=== PATIENT | female | born 1955 | race Caucasian/White ===

== ENCOUNTER 2023-07-30 06:50 | Emergency (ER) | payer MEDICARE, OTHER, SELFPAY ==
[2023-07-30 06:53] VITALS: BP 108/56; PULSE 50; RESP 18; TEMP 36.8; O2SAT 95; BMI 27.4
--- NOTE | 2023-07-30 06:55 | XRR_ITS ---
PROCEDURE INFORMATION: Exam: XR Chest Exam date and time: 07/30/2023 7:09 AM Age: 68 years old Clinical indication: Pain; Chest pressure; Additional info: Chest pain TECHNIQUE: Imaging protocol: Radiologic exam of the chest. Views: 1 view. COMPARISON: No relevant prior studies available. FINDINGS: Lungs: Mild coarse reticular opacity in the left lung base. Right lung is clear. Pleural spaces: There is no pleural effusion or pneumothorax. Heart/Mediastinum: The cardiac silhouette is within normal limits of size given AP technique. Bones/joints: Bones are unremarkable. XR/XR chest 1V portable [id number] IMPRESSION: Coarse reticular opacity in the left lung base. Probable atelectasis. Infection not excluded.
--- NOTE | 2023-07-30 07:00 | ECG_ITS ---
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 Measurements Intervals [place] Rate: 48 P: 10 [place]: 188 QRS: 43 QRSD: 89 T: 30 QT: 463 QTc: 417 Interpretive Statements SINUS BRADYCARDIA NONSPECIFIC ST & T-WAVE ABNORMALITY No previous ECG available for comparison Electronically Signed On 07-30-2023 8:26:48 CDT by Pasquale Guerra M.D. [email or web address] [email or web address].aDealio/store/OM/[id number]
[2023-07-30 07:05] VITALS: BP 108/56; PULSE 48; RESP 18; O2SAT 95
[2023-07-30 07:12] LABS: Basophils # 0.1 10^3/uL (0.0-0.1); Basophils % 0.8 %; Eosinophils # 0.3 10^3/uL (0.0-0.8); Eosinophils % 2.1 %; Hematocrit 42.4 % (36-47); Lymphocytes # 1.7 10^3/uL (0.8-4.8); Lymphocytes % 14.1 %; Mean Corpuscular HGB Conc 32.8 g/dL (30-55); Mean Corpuscular Hemoglobin 31.1 pg (27-33); Mean Corpuscular Volume 94.9 fl (85-98); Mean Platelet Volume 10.4 fL (7.4-10.4); Monocytes # 0.8 10^3/uL (0.2-0.9); Monocytes % 6.8 %; Neutrophils % 75.9 %; Nucleated Red Blood Cells % 0 %; Platelet Count 235 10^3/cmm (157-399); Red Blood Count 4.47 10^6/uL (3.85-5.65); Red Cell Distribution Width 13.6 % (12.1-15.1); White Blood Count 12.12 10^3/uL (3.29-11.43)
[2023-07-30 07:20] VITALS: BP 79/48; PULSE 47; RESP 13; O2SAT 97
--- NOTE | 2023-07-30 07:21 | PC.NURSE ---
PT NITRO PASTE FROM EMS WAS REMOVED
[2023-07-30 07:23] LABS: INR 0.98 (0.8-1.2)
[2023-07-30 07:24] LABS: Alanine Aminotransferase < 5 U/L (0-33); Alkaline Phosphatase 66 U/L (35-105); Anion Gap 13.2 (5-19); Aspartate Amino Transferase 14 U/L (0-32); Blood Urea Nitrogen 18 mg/dL (8-23); Calcium 8.6 mg/dL (8.5-10.5); Carbon Dioxide 25 mmol/L (22-29); Chloride 102 mmol/L (98-107); Globulin 2.1 g/dL (1.3-4.6); Glomerular Filtration Rate 49.1 mL/min (90-130); Glucose 100 mg/dL (65-115); Osmolality Calculated 284 mOsm/kg (285-295); Potassium 4.2 mmol/L (3.5-5.1); Sodium 136 mmol/L (136-145); Total Bilirubin 0.5 mg/dL (0.15-1.2); Total Protein 6.1 g/dL (6.6-8.7)
[2023-07-30 07:25] LABS: Troponin(5th) Baseline 15 ng/L (0-10)
[2023-07-30 07:30] VITALS: BP 98/52; PULSE 48; RESP 19; O2SAT 98
--- NOTE | 2023-07-30 07:53 | PC.PHAR ---
pt brought in medication bottles except for aspirin 81mg-pt states she took no meds today-pt states she is unsure which medications she takes in the am and the pm-
--- NOTE | 2023-07-30 07:56 | ED_ITS ---
HPI - Chest Pain General: Chief Complaint: Chest Pain Stated Complaint: CP Time Seen by Provider: 07/30/23 06:55 History of Present Illness: Patient presents to the ER with complaints of sudden onset stabbing chest pain substernal since this morning. Patient said the pain started about 430 this morning. Patient did states she worked outside all day yesterday with a shovel. EMS gave the patient 324 mg aspirin, 4 mg Zofran, 100 mcg of fentanyl, 1 nitro sublingual and 1 inch Nitropaste on her chest. Patient was pain-free and sleeping upon arrival. Patient was placed on 2 L oxygen per nasal cannula as her sats dropped in the 80s for the ambulance after administration of medicine. Patient does not have a history of cardiac disease. Patient is Lipitor for her cholesterol. Review of Systems General: Reports: 10 or more systems reviewed and unremarkable except in HPI and below Physical Exam Const: COMMON NORMALS: no acute distress, average body habitus, patient oriented x3, no limitations, healthy appearing, alert and well nourished HENMT: COMMON NORMALS: normocephalic, hearing grossly normal bilaterally, external ears normal, EAC's normal and moist oral mucous membranes HEAD & SCALP: normocephalic EXTERNAL EAR: Yes external ears normal EXTERNAL AUDITORY CANAL: EAC's normal Eye: COMMON NORMALS: Equal, round and reactive pupils present, EOMs intact bilaterally, conjunctivae normal and no scleral icterus CONJUNCTIVA: Yes conjunctivae normal PUPIL: Yes Equal, round and reactive pupils present Neck/C-Spine: COMMON NORMALS: full ROM, no lymphadenopathy, supple, no meningeal signs, no JVD and Thyroid normal THYROID: Thyroid normal Chest: COMMONS NORMALS: normal inspection of the chest and normal palpation of entire chest wall Resp: COMMON NORMALS: normal respiratory effort, No retractions, No use of accessory muscles and clear to auscultation bilaterally AUSCULTATION: clear to auscultation bilaterally Cardio: COMMON NORMALS: no JVD, regular rate, regular rhythm, S1 normal heart sound present, S2 normal heart sound present, No gallops present (Cardio), No clicks present (Cardio), No murmurs present (Cardio) and No rub (Cardio) RATE: regular rate RHYTHM: regular rhythm HEART SOUNDS: S1 normal heart sound present and S2 normal heart sound present GI: COMMON NORMALS: Normal to inspection, nondistended, normoactive bowel so unds present, Soft to palpation, non-tender, No hepatosplenomegaly present and no masses PALPATION: Yes Soft to palpation and Yes No hepatosplenomegaly present : COMMON NORMALS: Yes no CVA tenderness BLADDER/KIDNEY EXAM: Yes no CVA tenderness Back/Pelvis: COMMON NORMALS: no CVA tenderness Neuro: COMMON NORMALS: patient oriented x3 SENSORIUM/ORIENTATION: Yes alert MENINGEAL SIGNS: Yes no meningeal signs Course Vital Signs: Vital signs: Vital Signs Temperature 98.2 F 07/30/23 06:53 Pulse Rate 52 L 07/30/23 09:26 Respiratory Rate 18 07/30/23 09:26 Blood Pressure 105/59 07/30/23 09:26 Pulse Oximetry 96 07/30/23 09:26 Oxygen Delivery Me thod Room Air 07/30/23 09:26 Oxygen Flow Rate 2 07/30/23 07:20 MDM - Chest Pain Medical Decision Making Patient presents to the ER with complaints of chest pain. EMS gave the patient aspirin nitro and Nitropaste and Zofran. Patient was pain-free upon arrival. Patient was worked up in the standard chest pain fashion with serial labs serial EKGs and chest x-ray. Serial troponins were 15 and a 2-hour troponin was 13 for troponin delta of roughly 2. Is thought that the patient's chest pain was noncardiac in nature and patient be discharged home. Medical Records I reviewed the patient's medical records. Lab Data I reviewed the patient's lab results. 07/30/23 06:55 07/30/23 06:55 Radiology Impressions Chest X-Ray 07/30/23 06:55 IMPRESSION: Coarse reticular opacity in the left lung base. Probable atelectasis. Infection not excluded. Laboratory Results WBC 12.12 10^3/uL (3.29-11.43) H 07/30/23 06:55 RBC 4.47 10^6/uL (3.85-5.65) 07/30/23 06:55 Hgb 13.90 g/dL (11.27-16.99) 07/30/23 06:55 Hct 42.4 % (36-47) 07/30/23 06:55 MCV 94.9 fl (85-98) 07/30/23 06:55 MCH 31.1 pg (27-33) 07/30/23 06:55 MCHC 32.8 g/dL (30-55) 07/30/23 06:55 RDW 13.6 % (12.1-15.1) 07/30/23 06:55 Plt Count 235 10^3/cmm (157-399) 07/30/23 06:55 MPV 10.4 fL (7.4-10.4) 07/30/23 06:55 Neut % (Auto) 75.9 % 07/30/23 06:55 Lymph % (Auto) 14.1 % 07/30/23 06:55 [place] % (Auto) 6.8 % 07/30/23 06:55 Eos % (Auto) 2.1 % 07/30/23 06:55 Baso % (Auto) 0.8 % 07/30/23 06:55 Neut # (Auto) 9.20 10^3/uL (1.8-7.7) H 07/30/23 06:55 Lymph # (Auto) 1.7 10^3/uL (0.8-4.8) 07/30/23 06:55 [place] # (Auto) 0.8 10^3/uL (0.2-0.9) 07/30/23 06:55 Eos # (Auto) 0.3 10^3/uL (0.0-0.8) 07/30/23 06:55 Baso # (Auto) 0.1 10^3/uL (0.0-0.1) 07/30/23 06:55 Nucleated RBC % (auto) 0 % 07/30/23 06:55 Nucleated RBCs # 0.0 /100WBC 07/30/23 06:55 PT 13.30 SECONDS (12.1-14.9) 07/30/23 06:55 INR 0.98 (0.8-1.2) 07/30/23 06:55 Sodium 136 mmol/L (136-145) 07/30/23 06:55 Potassium 4.2 mmol/L (3.5-5.1) 07/30/23 06:55 Chloride 102 mmol/L (98-107) 07/30/23 06:55 Carbon Dioxide 25 mmol/L (22-29) 07/30/23 06:55 Anion Gap 13.2 (5-19) 07/30/23 06:55 BUN 18 mg/dL (8-23) 07/30/23 06:55 Creatinine 1.1 mg/dL (0.5-0.9) H 07/30/23 06:55 GFR Calculation 49.1 mL/min (90-130) L 07/30/23 06:55 Glucose 100 mg/dL (65-115) 07/30/23 06:55 Calculated Osmolality 284 mOsm/kg (285-295) L 07/30/23 06:55 Calcium 8.6 mg/dL (8.5-10.5) 07/30/23 06:55 Total Bilirubin 0.5 mg/dL (0.15-1.2) 07/30/23 06:55 AST 14 U/L (0-32) 07/30/23 06:55 ALT < 5 U/L (0-33) 07/30/23 06:55 Alkaline Phosphatase 66 U/L (35-105) 07/30/23 06:55 Troponin T Baseline 15 ng/L (0-10) H 07/30/23 06:55 Troponin T 120 Minute 13.53 ng/L (0-10) H 07/30/23 08:56 Delta Troponin T -1.47 ABS# (0-10) L 07/30/23 08:56 Total Protein 6.1 g/dL (6.6-8.7) L 07/30/23 06:55 Albumin 4.0 g/dL (3.5-5.2) 07/30/23 06:55 Globulin 2.1 g/dL (1.3-4.6) 07/30/23 06:55 All radiology interpretation(s) finalized by discharge EKG Data EKG 1: I personally reviewed and interpreted this EKG as follows: EKG interpretation date: 07/30/23 EKG interpretation time: 07:00 Prior EKG tracings: not available for review Interpretation: EKG shows ventricular rate 48 bpm, [place] interval 188, QRS duration 89, QTc of 431, sinus bradycardia, nonspecific ST-T wave abnormality EKG 2: I personally reviewed and interpreted this EKG as follows: EKG interpretation date: 07/30/23 EKG interpretation time: 08:25 Prior EKG tracings: available for review Interpretation: EKG shows ventricular rate of 50 bpm, [place] interval 190, QRS duration 91, QTc 426, sinus bradycardia Discharge Plan Discharge Patient Disposition: Home Clinical Impression: Atypical chest pain Condition: Stable Prescriptions: No Action atorvastatin 10 mg tablet 10 mg PO DAILY metoprolol succinate 100 mg tablet extended release 24 hr 100 mg PO DAILY sertraline 100 mg tablet 100 mg PO DAILY Aspir-81 81 mg Tablet,Delayed Release (Dr/Ec) 81 mg PO DAILY tramadol 50 mg tablet 50 mg PO Q6H PRN (Reason: Pain) ghnegfqubh-ivqopcyxqnldt-lxxo 50-325-40 mg Tablet 1 tab PO Q4H PRN (Reason: Headache) alprazolam 0.5 mg tablet 0.5 mg PO .UP TO TID PRN (Reason: Anxiety) Premarin 0.625 mg tablet 0.625 mg PO DAILY Prilosec 20 mg Capsule,Delayed Release(Dr/Ec) 20 mg PO DAILY melatonin 10 mg Tablet 10 mg PO BEDTIME Discharge Orders: Discharge ED (Routine); Ordered 07/30/23 Ordered By: Kemar Lares Referrals: Arturo Rosa [Primary Care Provider] - 1 week Patient Instructions: Chest Pain - Noncardiac Activity Restrictions/Additional Instructions: Please return to the ER if your chest pain continues or worsens. Please follow- up with your family practice physician over the next 7 to 10 days as needed for further evaluation and treatment. Coding Level of Care Code ED Assistant Shift Supervisor for [place]
--- NOTE | 2023-07-30 08:25 | ECG_ITS ---
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 Measurements Intervals [place] Rate: 50 P: 24 [place]: 190 QRS: 63 QRSD: 91 T: 41 QT: 453 QTc: 414 Interpretive Statements SINUS BRADYCARDIA POSSIBLE LATERAL MYOCARDIAL INFARCTION , PROBABLY OLD [30 ms Q WAVE IN I/aVL/V5/V6] Compared to ECG 07/30/2023 07:00:15 Myocardial infarct finding now present T-wave abnormality no longer present Electronically Signed On 07-30-2023 10:04:02 CDT by Vickie Rogers M.D. [email or web address]/store/OM/[id number]
[2023-07-30 08:48] VITALS: BP 112/58; PULSE 51; RESP 18; O2SAT 95
[2023-07-30 09:25] LABS: Troponin 5 2HR 13.53 ng/L (0-10)
[2023-07-30 09:26] VITALS: BP 105/59; PULSE 52; RESP 18; O2SAT 96
[2023-07-30 09:27] LABS: Troponin 5 2HR Delta -1.47 ABS# (0-10)
== END 2023-07-30 10:01 | disposition home or self-care (01) ==
PROVIDERS: Emergency Provider Emergency Medicine; PCP Family Medicine
DX: R07.89 Other chest pain (principal); Z79.82 Long term (current) use of aspirin
CPT/HCPCS: 36415; 71045; 80053; 84484; 85025; 85610; 93005; 99285

== ENCOUNTER 2024-05-25 23:53 | Inpatient (IN) | payer MEDICARE, OTHER, SELFPAY ==
[2024-05-25 23:53] VITALS: BP 126/78; PULSE 73; RESP 18; TEMP 35.7; O2SAT 84; BMI 27.9
--- NOTE | 2024-05-25 23:59 | ECG_ITS ---
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 Measurements Intervals [place] Rate: 73 P: 51 [place]: 202 QRS: 20 QRSD: 94 T: 45 QT: 423 QTc: 469 Interpretive Statements SINUS RHYTHM POSSIBLE LEFT ATRIAL ENLARGEMENT [-0.1mV P-WAVE IN V1/V2] LOW QRS VOLTAGE IN PRECORDIAL LEADS [QRS DEFLECTION < 1.0 mV IN CHEST LEADS] PROBABLE ANTEROLATERAL MYOCARDIAL INFARCTION , OF INDETERMINATE AGE [35 ms Q WAVE IN I/aVL/V3-V6] Compared to ECG 07/30/2023 08:25:39 Low QRS voltage now present Sinus bradycardia no longer present Myocardial infarct finding still present Electronically Signed On 05-26-2024 17:17:57 CDT by Pasquale Guerra M.D. [id number]
[2024-05-26] VITALS (76 sets, daily range): BP systolic 131–163; BP diastolic 80–120; PULSE 63–84; RESP 11–26; TEMP -12.7–36.6; O2SAT 90–100; BMI 28.4
--- NOTE | 2024-05-26 00:04 | XRR_ITS ---
PROCEDURE INFORMATION: Exam: XR Chest Exam date and time: 05/26/2024 12:19 AM Age: 69 years old Clinical indication: Dyspnea TECHNIQUE: Imaging protocol: Radiologic exam of the chest. Views: 1 view. COMPARISON: CR XR chest 1V portable [id number] 07/30/2023 7:09 AM FINDINGS: Lungs: The lungs are adequately expanded. Bibasilar hazy opacities concerning for pulmonary edema, atelectasis, or consolidation. Emphysema. Pleural spaces: Unremarkable. No pleural effusion. No pneumothorax. Heart/Mediastinum: Unremarkable. No cardiomegaly. Vasculature: Atherosclerotic calcifications. Bones/joints: Unremarkable. XR/XR chest 1V portable [id number] IMPRESSION: Bibasilar hazy opacities concerning for pulmonary edema, atelectasis, or consolidation.
--- NOTE | 2024-05-26 00:04 | ECG_ITS ---
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 Measurements Intervals [place] Rate: 68 P: 55 [place]: 206 QRS: 28 QRSD: 97 T: 66 QT: 451 QTc: 481 Interpretive Statements SINUS RHYTHM POSSIBLE LEFT ATRIAL ENLARGEMENT [-0.1mV P-WAVE IN V1/V2] LATERAL MYOCARDIAL INFARCTION , PROBABLY RECENT [40+ ms Q WAVE AND/OR ST/T ABNORMALITY IN I/aVL/V5/V6] ACUTE SD Compared to ECG 05/26/2024 02:34:28 No significant changes Electronically Signed On 05-26-2024 6:29:05 CDT by Leandro Connell M.D. [id number] f
--- NOTE | 2024-05-26 00:13 | W.ED.SOB ---
HPI - SOB/Dyspnea General: Chief Complaint: Shortness of Breath/Dyspnea Stated Complaint: SOB Time Seen by Provider: 05/26/24 00:11 History of Present Illness: HPI Narrative: Patient comes to the ER via EMS with complaints of shortness of breath. This was sudden onset about 11:00 last night. Patient normally does not have any COPD asthma CHF breathing problems. Patient was very short of breath by time EMS got there satting about 80%. Patient is on 6 L of oxygen satting about 85% upon arrival. Patient was put on 10 L of heated high flow oxygen and satting about 99% now. Patient temperature 96.3 pulse 73 blood pressure 126/78, Patient denies chest pain shortness of breath diaphoresis nausea vomiting fever chills sick contacts Review of Systems General: Reports: 10 or more systems reviewed and unremarkable except in HPI and below Physical Exam Const: COMMON NORMALS: no acute distress, average body habitus, patient oriented x3, no limitations, healthy appearing, alert and well nourished HENMT: COMMON NORMALS: normocephalic, atraumatic, hearing grossly normal bilaterally, external ears normal, Normal external nose present and moist oral mucous membranes HEAD & SCALP: normocephalic and atraumatic NOSE: Normal external nose present EXTERNAL EAR: Yes external ears normal Neck/C-Spine: COMMON NORMALS: no JVD Chest: COMMONS NORMALS: normal inspection of the chest and normal palpation of entire chest wall Resp: COMMON NORMALS: normal respiratory effort, No retractions, No use of accessory muscles and clear to auscultation bilaterally AUSCULTATION: clear to auscultation bilaterally Cardio: COMMON NORMALS: no JVD, regular rate, regular rhythm, S1 normal heart sound present, S2 normal heart sound present, No gallops present (Cardio), No clicks present (Cardio), No murmurs present (Cardio), No rub (Cardio) and Peripheral pulses 2+ throughout RATE: regular rate RHYTHM: regular rhythm HEART SOUNDS: S1 normal heart sound present and S2 normal heart sound present PERIPHERAL PULSES: Peripheral pulses 2+ throughout GI: COMMON NORMALS: Normal to inspection, nondistended, normoactive bowel sounds present, Soft to palpation, non-tender, No hepatosplenomegaly present and no masses PALPATION: Yes Soft to palpation and Yes No hepatosplenomegaly present Neuro: COMMON NORMALS: patient oriented x3 SENSORIUM/ORIENTATION: Yes alert Course Vital Signs: Vital signs: Vital Signs Temperature 96.3 F L 05/25/24 23:53 Pulse Rate 67 05/26/24 02:48 Respiratory Rate 20 H 05/26/24 03:26 Blood Pressure 143/85 05/26/24 02:48 Pulse Oximetry 99 05/26/24 03:26 Oxygen Delivery Me thod Heated High Flow 05/26/24 02:48 Oxygen Flow Rate 10 05/26/24 02:48 MDM - SOB/Dyspnea Medical Decision Making Time 234, EKG performed at 234 and [address] Orlando, Dr. Orlando said when trend troponins not an obvious STEMI and with delta troponin only being approximately 44 and no chest pain not too concerning at this time more concerned with the PE and hypoxia, continue CTA and can put on heparin . Dr. Orlando text back wanted some labs we texted him he is worried about flash pulmonary edema, we will give the patient 40 Lasix, and patient started having back pain and left shoulder pain, we got a third EKG at 305 which shows mildly worsening depression and elevation in various leads patient was given 4 mg of morphine and this was tacked back to Dr. Orlando. Still does not meet STEMI criteria we can heparinize her and follow serial troponins. Discussed case with Dr. Mccormick we will place patient in ICU for further workup and treatment. Medical Records I reviewed the patient's medical records. Lab Data I reviewed the patient's lab results. 05/26/24 00:08 05/26/24 00:08 Labs/Radiology: Radiology Impressions Chest X-Ray 05/26/24 00:04 IMPRESSION: Bibasilar hazy opacities concerning for pulmonary edema, atelectasis, or consolidation. Chest CTA 05/26/24 00:36 IMPRESSION: 1. Negative for pulmonary artery embolism. 2. Interstitial edema. 3. Scattered ground-glass airspace opacities could reflect pulmonary edema, nonspecific inflammatory pneumonitis, or atypical infection. Laboratory Results WBC 9.39 10^3/uL (3.29-11.43) 05/26/24 00:08 RBC 4.82 10^6/uL (3.85-5.65) 05/26/24 00:08 Hgb 14.80 g/dL (11.27-16.99) 05/26/24 00:08 Hct 45.7 % (36-47) 05/26/24 00:08 MCV 94.8 fl (85-98) 05/26/24 00:08 MCH 30.7 pg (27-33) 05/26/24 00:08 MCHC 32.4 g/dL (30-55) 05/26/24 00:08 RDW 14.0 % (12.1-15.1) 05/26/24 00:08 Plt Count 230 10^3/cmm (157-399) 05/26/24 00:08 MPV 10.8 fL (7.4-10.4) H 05/26/24 00:08 Neut % (Auto) 70.4 % 05/26/24 00:08 Lymph % (Auto) 23.3 % 05/26/24 00:08 [place] % (Auto) 3.7 % 05/26/24 00:08 Eos % (Auto) 1.4 % 05/26/24 00:08 Baso % (Auto) 0.9 % 05/26/24 00:08 Neut # (Auto) 6.61 10^3/uL (1.8-7.7) 05/26/24 00:08 Lymph # (Auto) 2.2 10^3/uL (0.8-4.8) 05/26/24 00:08 [place] # (Auto) 0.4 10^3/uL (0.2-0.9) 05/26/24 00:08 Eos # (Auto) 0.1 10^3/uL (0.0-0.8) 05/26/24 00:08 Baso # (Auto) 0.1 10^3/uL (0.0-0.1) 05/26/24 00:08 Nucleated RBC % (auto) 0 % 05/26/24 00:08 Nucleated RBCs # 0.0 /100WBC 05/26/24 00:08 D-Dimer 2.93 ug/mLFEU (0-0.59) H 05/26/24 00:08 Specimen Type Arterial 05/26/24 00:20 Sample Site Radial, right 05/26/24 00:20 ABG pH 7.35 (7.35-7.45) 05/26/24 00:20 ABG pCO2 42.9 mmHg (35-45) 05/26/24 00:20 ABG pO2 53.4 mmHg (80.0-100.0) L 05/26/24 00:20 ABG HCO3 23.7 mmol/L (22-26) 05/26/24 00:20 ABG O2 Saturation 87.4 05/26/24 00:20 ABG Base Excess -2.0 mmol/L (-2.0-2.0) 05/26/24 00:20 Frank Test Pos 05/26/24 00:20 A-a O2 Gradient 5.7 mmHg (5-10) 05/26/24 00:20 Hematocrit 46.4 % (37-47) 05/26/24 00:20 Hgb O2 Saturation 83.8 % (95-100) L 05/26/24 00:20 Carboxyhemoglobin 3.9 %THgb (0.4-20.1) 05/26/24 00:20 Methemoglobin 0.2 % (0.4-1.5) L 05/26/24 00:20 Total Hemoglobin 15.1 g/dL (12-16) 05/26/24 00:20 Sodium 138.0 mmol/L (131-143) 05/26/24 00:20 Potassium 3.6 mmol/L (3.5-5.0) 05/26/24 00:20 Glucose 171.0 mg/dL (70-115) H 05/26/24 00:20 Ionized Calcium 1.2 mmol/L (1.1-1.4) 05/26/24 00:20 O2 Delivery Device Nc 05/26/24 00:20 O2 Liters/Min 6.0 % 05/26/24 00:20 Hotbed Transfer Operator ID [email or web address] 05/26/24 00:20 Sodium 137 mmol/L (136-145) 05/26/24 00:08 Potassium 4.1 mmol/L (3.5-5.1) 05/26/24 00:08 Chloride 101 mmol/L (98-107) 05/26/24 00:08 Carbon Dioxide 21 mmol/L (22-29) L 05/26/24 00:08 Anion Gap 19.1 (5-19) H 05/26/24 00:08 BUN 20 mg/dL (8-23) 05/26/24 00:08 Creatinine 1.2 mg/dL (0.5-0.9) H 05/26/24 00:08 GFR Calculation Not Reportable 05/26/24 00:08 Glucose 179 mg/dL (65-115) H 05/26/24 00:08 Calculated Osmolality 291 mOsm/kg (285-295) 05/26/24 00:08 Calcium 9.1 mg/dL (8.5-10.5) 05/26/24 00:08 Phosphorus 4.5 mg/dL (2.5-4.5) 05/26/24 00:08 Magnesium 2.1 mg/dL (1.7-2.3) 05/26/24 00:08 Total Bilirubin 0.7 mg/dL (0.15-1.2) 05/26/24 00:08 AST 24 U/L (0-32) 05/26/24 00:08 ALT 13 U/L (0-33) 05/26/24 00:08 Alkaline Phosphatase 83 U/L (35-105) 05/26/24 00:08 Troponin T Baseline 28 ng/L (0-10) H 05/26/24 00:08 Troponin T 120 Minute 72.86 ng/L (0-10) H 05/26/24 02:05 Delta Troponin T 44.86 ABS# (0-10) H* 05/26/24 02:05 NT-Pro-B Natriuret Pep 7883 pg/mL (0-125) H 05/26/24 01:50 Total Protein 6.9 g/dL (6.6-8.7) 05/26/24 00:08 Albumin 4.0 g/dL (3.5-5.2) 05/26/24 00:08 Globulin 2.9 g/dL (1.3-4.6) 05/26/24 00:08 Adenovirus (PCR) Not detected (NOT DETECT) 05/26/24 00:12 C. pneumoniae DNA (PCR) Not detected (NOT DETECT) 05/26/24 00:12 Coronavirus 229E (PCR) Not detected (NOT DETECT) 05/26/24 00:12 Human Metapneumovir PCR Not detected (NOT DETECT) 05/26/24 00:12 Influenza A (H1) PCR Not detected (NOT DETECT) 05/26/24 00:12 Influ A (H1/09) PCR Not detected (NOT DETECT) 05/26/24 00:12 Influenza A (H3) PCR Not detected (NOT DETECT) 05/26/24 00:12 Influenza Type A (PCR) Not detected (NOT DETECT) 05/26/24 00:12 Influenza Type B (PCR) Not detected (NOT DETECT) 05/26/24 00:12 M. pneumoniae (PCR) Not detected (NOT DETECT) 05/26/24 00:12 Parainfluenza 1 (PCR) Not detected (NOT DETECT) 05/26/24 00:12 Parainfluenza 2 (PCR) Not detected (NOT DETECT) 05/26/24 00:12 Parainfluenza 3 (PCR) Not detected (NOT DETECT) 05/26/24 00:12 Parainfluenza 4 (PCR) Not detected (NOT DETECT) 05/26/24 00:12 RSV Type A (PCR) Not detected (NOT DETECT) 05/26/24 00:12 RSV Type B (PCR) Not detected (NOT DETECT) 05/26/24 00:12 Entero/Rhino (PCR) Not detected (NOT DETECT) 05/26/24 00:12 SARS-CoV-2 (PCR) Not detected (NOT DETECT) 05/26/24 00:12 All radiology interpretation(s) finalized by discharge Critical Care Time Critical Care Time: Critical Care Time: Yes Total Critical Care Time: 60 Attestation: The patient was emergently evaluated this patient's presentation and case had a high probability of a clinically significant, sudden, or life-threatening deterioration of the patient's initial critical presentation or condition which required my full and direct attention, intervention and personal management. Discharge Plan Discharge Patient Disposition: Admitted As Inpatient Clinical Impression: Pulmonary edema, Acute hypoxic respiratory failure, Non-ST elevated myocardial infarction (non-STEMI) Condition: Stable Coding Level of Care Code ED Change Management Administrator for [place]
[2024-05-26 00:17] LABS: Basophils # 0.1 10^3/uL (0.0-0.1); Basophils % 0.9 %; Eosinophils # 0.1 10^3/uL (0.0-0.8); Eosinophils % 1.4 %; Hematocrit 45.7 % (36-47); Lymphocytes # 2.2 10^3/uL (0.8-4.8); Lymphocytes % 23.3 %; Mean Corpuscular HGB Conc 32.4 g/dL (30-55); Mean Corpuscular Hemoglobin 30.7 pg (27-33); Mean Corpuscular Volume 94.8 fl (85-98); Mean Platelet Volume 10.8 fL (7.4-10.4); Monocytes # 0.4 10^3/uL (0.2-0.9); Monocytes % 3.7 %; Neutrophils # 6.61 10^3/uL (1.8-7.7); Neutrophils % 70.4 %; Nucleated Red Blood Cells % 0 %; Platelet Count 230 10^3/cmm (157-399); Red Blood Count 4.82 10^6/uL (3.85-5.65); White Blood Count 9.39 10^3/uL (3.29-11.43)
[2024-05-26 00:30] LABS: D Dimer 2.93 ug/mLFEU (0-0.59)
[2024-05-26 00:31] LABS: ABG PCO2 42.9 mmHg (35-45); ABG PH Result 7.35 (7.35-7.45); Alveolar-Arterial Oxygen Gradi 5.7 mmHg (5-10); Arterial Blood Gas Hematocrit 46.4 % (37-47); Blood Gas Allen Test Pos; Blood Gas Sample Site Radial, right; Blood Gas Sample Type Arterial; Carboxyhemoglobin 3.9 %THgb (0.4-20.1); HCO3 ABG 23.7 mmol/L (22-26); HGB O2 Sat 83.8 % (95-100); Ionized Calcium Level - ABG 1.2 mmol/L (1.1-1.4); Methemoglobin 0.2 % (0.4-1.5); Oxygen Device NC; Oxygen Saturation ABG 87.4; PO2 ABG 53.4 mmHg (80.0-100.0); Potassium Level - ABG 3.6 mmol/L (3.5-5.0); Total Hemoglobin 15.1 g/dL (12-16)
[2024-05-26 00:35] LABS: Troponin(5th) Baseline 28 ng/L (0-10)
--- NOTE | 2024-05-26 00:36 | CTR_ITS ---
PROCEDURE INFORMATION: Exam: CTA Chest With Contrast Exam date and time: 05/26/2024 1:04 AM Age: 69 years old Clinical indication: Dyspnea TECHNIQUE: Imaging protocol: Computed tomographic angiography of the chest with contrast. Exam focused on the arteries. 3D rendering (Not supervised by radiologist): MIP and/or 3D reconstructed images were created by the technologist. Radiation optimization: All CT scans at this facility use at least one of these dose optimization techniques: automated exposure control; mA and/or kV adjustment per patient size (includes targeted exams where dose is matched to clinical indication); or iterative reconstruction. Contrast material: OMNIPAQUE 350; Contrast volume: 71 ml; Contrast route: INTRAVENOUS (IV); COMPARISON: CR (CHEST, ) 05/26/2024 12:19 AM RADIATION DOSE METRICS: Total DLP (mGy-cm): 370.64 FINDINGS: Pulmonary arteries: Normal. No pulmonary emboli. Aorta: Widespread wall plaques throughout the thoracic aorta. Negative for aneurysm. Lungs: Diffuse septal thickening. Scattered small geographic areas of ground-glass attenuation peripherally in both lungs. Mosaic attenuation pattern. Increased opacities in the dependent airspaces within the lower lobes. Negative for central endobronchial obstruction. Mild degree of smooth diffuse bronchial wall thickening. Negative for bronchiectasis. Neg for peripheral honeycombing. Pleural spaces: Unremarkable. No pneumothorax. No pleural effusion. Heart: Unremarkable. No cardiomegaly. No pericardial effusion. Coronary arteries: Large volume coronary artery calcifications. Lymph nodes: Unremarkable. No enlarged lymph nodes. Diaphragm: Small hiatal hernia. Gallbladder and biliary ducts: Cholecystectomy. Bones/joints: Unremarkable. No acute fracture. Soft tissues: Unremarkable. CT/CT angio chest PE protcl [id number] IMPRESSION: 1. Negative for pulmonary artery embolism. 2. Interstitial edema. 3. Scattered ground-glass airspace opacities could reflect pulmonary edema, nonspecific inflammatory pneumonitis, or atypical infection.
[2024-05-26 00:38] LABS: Alanine Aminotransferase 13 U/L (0-33); Alkaline Phosphatase 83 U/L (35-105); Aspartate Amino Transferase 24 U/L (0-32); Blood Urea Nitrogen 20 mg/dL (8-23); Calcium 9.1 mg/dL (8.5-10.5); Carbon Dioxide 21 mmol/L (22-29); Chloride 101 mmol/L (98-107); Creatinine Clr Calc Pharmacy 43.9071; Globulin 2.9 g/dL (1.3-4.6); Glucose 179 mg/dL (65-115); Magnesium 2.1 mg/dL (1.7-2.3); Osmolality Calculated 291 mOsm/kg (285-295); Phosphorus 4.5 mg/dL (2.5-4.5); Sodium 137 mmol/L (136-145); Total Bilirubin 0.7 mg/dL (0.15-1.2); Total Protein 6.9 g/dL (6.6-8.7)
[2024-05-26 00:44] LABS: Anion Gap 19.1 (5-19); Potassium 4.1 mmol/L (3.5-5.1)
[2024-05-26] MEDS: iohexol 350 mg/mL 500 mL Btl (per mL) IV (01:15)
[2024-05-26 02:02] LABS: Adenovirus Not Detected (NOT DETECT); Chlamydia Pneumoniae Not Detected (NOT DETECT); Coronavirus 229E,HKU1,NL63,OC4 Not Detected (NOT DETECT); Human Metapneumovirus Not Detected (NOT DETECT); Human Rhinovirus/Enterovirus Not Detected (NOT DETECT); Influenza A Not Detected (NOT DETECT); Influenza A H1 Not Detected (NOT DETECT); Influenza A H1-2009 Not Detected (NOT DETECT); Influenza A H3 Not Detected (NOT DETECT); Influenza B Not Detected (NOT DETECT); Mycoplasma Pneumoniae Not Detected (NOT DETECT); Parainfluenza Virus Type 1 Not Detected (NOT DETECT); Parainfluenza Virus Type 2 Not Detected (NOT DETECT); Parainfluenza Virus Type 3 Not Detected (NOT DETECT); Parainfluenza Virus Type 4 Not Detected (NOT DETECT); Respiratory Syncytial Virus A Not Detected (NOT DETECT); Respiratory Syncytial Virus B Not Detected (NOT DETECT); SARS-COV-2 Not Detected (NOT DETECT)
[2024-05-26 02:29] LABS: Troponin 5 2HR 72.86 ng/L (0-10)
--- NOTE | 2024-05-26 02:34 | ECG_ITS ---
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 Measurements Intervals [place] Rate: 66 P: 49 WV: 195 QRS: 31 QRSD: 101 T: 67 QT: 460 QTc: 485 Interpretive Statements SINUS RHYTHM LOW QRS VOLTAGE IN PRECORDIAL LEADS [QRS DEFLECTION < 1.0 mV IN CHEST LEADS] SEPTAL MYOCARDIAL INFARCTION , OF INDETERMINATE AGE [40+ ms Q WAVE IN V1/V2] LATERAL MYOCARDIAL INFARCTION , PROBABLY RECENT [40+ ms Q WAVE AND/OR ST/T ABNORMALITY IN I/aVL/V5/V6] ACUTE SC Compared to ECG 07/30/2023 08:25:39 Low QRS voltage now present Sinus bradycardia no longer present Myocardial infarct finding still present Electronically Signed On 05-26-2024 6:38:41 CDT by Leandro Connell M.D. [email or web address] ([email or web address])[email or web address]/[id number]
[2024-05-26 02:38] LABS: Troponin 5 2HR Delta 44.86 ABS# (0-10)
[2024-05-26 02:40] LABS: NT Pro B Type Natriuretic Pept 7883 pg/mL (0-125)
--- NOTE | 2024-05-26 03:05 | ECG_ITS ---
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 Measurements Intervals [place] Rate: 68 P: 47 CA: 207 QRS: 32 QRSD: 96 T: 69 QT: 453 QTc: 484 Interpretive Statements SINUS RHYTHM POSSIBLE LEFT ATRIAL ENLARGEMENT [-0.1mV P-WAVE IN V1/V2] LATERAL MYOCARDIAL INFARCTION , PROBABLY RECENT [40+ ms Q WAVE AND/OR ST/T ABNORMALITY IN I/aVL/V5/V6] Possible old septal WI ACUTE WI Compared to ECG 05/26/2024 02:41:27 No significant changes Electronically Signed On 05-26-2024 6:38:58 CDT by Leandro Connell M.D. [email or web address] Technologiestr[email or web address] medical centerKeelr/store/[id number] f
[2024-05-26] MEDS: aspirin 81 mg Chew Tablet 324 MG PO (03:23)
[2024-05-26] MEDS: heparin 5,000 unit/mL INJ 1 mL IV (03:25)
[2024-05-26] MEDS: morphine 4 mg/mL SDV 1 mL IVP (03:26)
[2024-05-26] MEDS: FUROsemide 10 mg/mL SDV 4mL 40 MG IVP (03:28)
[2024-05-26] MEDS: heparin drip 25,000 UNIT/500 ML PREMIX 21.34 UNIT IV (03:31)
--- NOTE | 2024-05-26 03:42 | P.HP_ITS ---
Providers/Chief Complaint 2 Primary Care Provider: Arturo Rosa Chief Complaint: SOB History of Present Illness Layen Robledo is a 69 year old female With past medical history of anxiety, depression who presented to the hospital with sudden onset shortness of breath today. She says she was playing with her dog at the time. She tried to wait around 40 to 45 minutes to see if it would get better but it did not therefore she called her son. When family came they found her on the floor completely naked with her toes being blue and her saturations being in the 70s. EMS was called immediately. He was given 3 DuoNebs and route and 125 Solu-Medrol and placed on oxygen and brought to the ER. Initially in ER she was requiring 6 L of oxygen and now on 10 L heated high flow, temperature 96.3. Denies any recent ill contacts or recent travel. D-dimer 2.93. CTA chest has ruled out pulmonary embolism.. Initial ABG 7.35/42.9/53.4. Creatinine 1.2. Delta troponin 2 hours 44.86. Initial EKG without any acute ischemic changes. Chest x-ray shows by lateral opacities with possible pneumonia versus pulmonary edema. Blood cultures obtained in ER. Patient denies being formally diagnosed with COPD however is an active smoker. Reports shoulder blade pain on left side. Says this pretty much started in the ambulance. Says she has varicose veins in her legs are sometimes swollen however at this time they are not. Patient is on 8 L high flow nasal cannula at this time. Medications/Allergies Home Medications Medication Instructions Recorded Confirmed Last Taken Type alprazolam 0.5 mg tablet 0.5 mg PO .UP TO TID PRN Anxiety 07/30/23 12/31/23 Unknown History aspirin 81 mg tablet,delayed 81 mg PO DAILY 07/30/23 12/31/23 Unknown History release atorvastatin 10 mg tablet 10 mg PO DAILY 07/30/23 12/31/23 Unknown History hltaaylopf-tycedfxododzt-gxwmtfjv 1 tab PO Q4H PRN Headache 07/30/23 12/31/23 Unknown History 50 mg-325 mg-40 mg tablet conjugated estrogens 0.625 mg 0.625 mg PO DAILY 07/30/23 12/31/23 Unknown History tablet (Premarin) melatonin 10 mg tablet 10 mg PO BEDTIME 07/30/23 12/31/23 Unknown History metoprolol succinate 100 mg 100 mg PO DAILY 07/30/23 12/31/23 Unknown History tablet,extended release 24 hr omeprazole 20 mg capsule,delayed 20 mg PO DAILY 07/30/23 12/31/23 Unknown History release sertraline 100 mg tablet 100 mg PO DAILY 07/30/23 12/31/23 Unknown History tramadol 50 mg tablet 50 mg PO Q6H PRN Pain 07/30/23 12/31/23 Unknown History sulfamethoxazole 800 1 tab PO BID 7 days #14 tabs 12/31/23 12/31/23 Unknown Rx mg-trimethoprim 160 mg tablet (Bactrim DS) Allergies Allergy/AdvReac Type Severity Reaction Status Date / Time No Known Allergies Allergy Verified 12/31/23 18:00 Vitals/I&O/Wt Last Vital Signs Temp 96.3 F L 05/25/24 23:53 Pulse 67 05/26/24 02:48 Resp 20 H 05/26/24 03:26 BP 143/85 05/26/24 02:48 Pulse Ox 99 05/26/24 03:26 O2 Del Method Heated High Flow 05/26/24 02:48 O2 Flow Rate 10 05/26/24 02:48 Weight last 48 hrs Weight 76.204 kg Physical Exam 2 Narrative: General: Alert oriented x3, patient seen on heated high flow 8 L, no acute respiratory distress and appears to be comfortable, no conversational dyspnea HEENT: Normocephalic, atraumatic, EOMI, Cardio: Regular rate rhythm, normal S1-S2 Respiratory: Rhonchi bilaterally at bases, no gross wheezes GI: Abdomen soft, nontender, nondistended, bowel sounds + Extremities: no edema bilateral lower extremity Data 05/26/24 00:08 05/26/24 00:08 Micro: Microbiology 05/26/24 01:50 Blood Culture - Preliminary Blood SPECIMEN COLLECTED 05/26/24 01:50 Blood Culture - Preliminary Blood SPECIMEN COLLECTED A&P Assessment and plan (1) Pulmonary edema: (2) Elevated d-dimer: (3) Hypothermia: (4) NSTEMI (non-ST elevated myocardial infarction): (5) Anxiety: (6) CKD (chronic kidney disease): (7) New onset of congestive heart failure: (8) Acute respiratory failure with hypoxia: (9) Elevated brain natriuretic peptide (BNP) level: Plan #Acute hypoxia most likely secondary to COPD exacerbation #Elevated D-dimer, PE ruled out #COPD #pulmonary edema #Hypothermia #Sepsis secondary to possibly bilateral pneumonia #NSTEMI, #CKD #Anxiety depression ? CT chest shows residual edema, nonspecific inflammatory pneumonitis or atypical infection. ? BNP 7800, check echo ? Delta troponin at 2 hours /44.86. Await 6-hour troponin. Started on ACS protocol. Aspirin, Plavix, atorvastatin, heparin drip. EKGs have been discussed with cardiology by ER physician. Cardiology is not concerned that this is a STEMI at this time. We will do serial EKGs and report to cardiology if any changes. Cardiology consulted. Keep patient n.p.o. ? Respiratory viral panel negative ? Baseline creatinine 1.1. Today creatinine 1.2. ? Ordered Lasix 40 IV daily ? May escalate to BiPAP if needed. Low threshold for intubation ? Check sputum Gram stain culture, blood cultures, bacterial antigens strep Legionella ? Active rewarming protocol. Placed on Matthew hugger ? Protonix 40 IV daily ? Admit to ICU at this time, placed on telemetry ? Placed on Solu-Medrol 40 IV twice daily ? 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 ? Placed on vancomycin and Zosyn ? Updated patient's daughter Jeny Robledo who is an RN at our hospital. DVT prophylaxis: On heparin drip Full code Attestations 2 Medical Necessity Statement*: > 2 midnight stay for management of hypoxia Diagnoses Pulmonary edema J81.1 Elevated d-dimer R79.89 Hypothermia T68.XXXA NSTEMI (non-ST elevated myocardial infarction) I21.4 Anxiety F41.9 CKD (chronic kidney disease) N18.9 New onset of congestive heart failure I50.9 Acute respiratory failure with hypoxia J96.01 Elevated brain natriuretic peptide (BNP) level R79.89
--- NOTE | 2024-05-26 03:45 | USCV_ITS ---
Layne Robledo Age: 69 Gender: F : 1955 Exam Date: 05/26/2024 04:10 Ordering Phys: Rajni Mccormick MD Technologist: NICHELLE [place] [facility] [place]: NSTEMI, SOB, hypoxia in 80s BP: 159 / 91 HR: 69 Rhythm: Sinus Technical Quality: Adequate MEASUREMENTS (Male / Female) Normal Values 2D ECHO LV Diastolic Diameter PLAX 4.2 cm 4.2 - 5.9 / 3.9 - 5.3 cm IVS Diastolic Thickness 1.6 cm 0.6 - 1.0 / 0.6 - 0.9 cm IVS Systolic Thickness 2.1 cm LVPW Diastolic Thickness 1.3 cm 0.6 - 1.0 / 0.6 - 0.9 cm LVPW Systolic Thickness 1.9 cm LVOT Diameter 1.3 cm LV Ejection Fraction 2D Teich 70.1 % LV Ejection Fraction MOD 4C 49.3 % LV Ejection Fraction MOD 2C 55.3 % LV Ejection Fraction 2C AL 54.1 % LA Diameter 3.9 cm LA Sys Volume AL 115.5 cm cubed LA Sys Volume Index AL 61.2 cm cubed/m squared Aorta at Sinotubular Diameter 2.7 cm IVC Diameter 1.4 cm M-MODE LA Ao Ratio MM 1.7 AV Cusp Separation MM 1.7 cm DOPPLER AV Peak Velocity 105.0 cm/s LVOT Peak Velocity 72.0 cm/s AV Area Cont Eq vti 1.2 cm squared AV Area Cont Eq pk 0.9 cm squared MV Peak Velocity 153.0 cm/s MV Area PHT 6.5 cm squared Mitral E to A Ratio 1.0 TR Peak Velocity 299.0 cm/s TR Peak Gradient 35.8 mmHg TV Peak E Velocity 63.0 cm/s Right Atrial Pressure 10.0 mmHg Pulmonary Artery Systolic Pressu 45.8 mmHg PV Peak Velocity 69.0 cm/s FINDINGS Left Ventricle Moderate left ventricular hypertrophy. Normal left ventricular size with a slightly diminished ejection fraction of 50%.Grade II/IV diastolic dysfunction, moderately elevated filling pressures. Right Ventricle The right ventricle is normal in size and function. Right Atrium The right atrium is normal in size. Left Atrium Moderatly increased left atrial size. Mitral Valve Thickened mitral valve. Aortic Valve Thickened aortic valve. Tricuspid Valve Trace tricuspid valve regurgitation. Estimated pulmonary artery peak systolic pressure 46 mmHg Pulmonic Valve Trace pulmonary valve regurgitation. Pericardium No pericardial effusion. Aorta Normal aortic annulus size. IVC Normal inferior vena cava. CONCLUSIONS Moderate left ventricular hypertrophy. Normal left ventricular size with a slightly diminished ejection fraction of 50%.Grade II/IV diastolic dysfunction, moderately elevated filling pressures. Moderatly increased left atrial size. Thickened aortic valve. Thickened aortic valve. Trace tricuspid valve regurgitation. Estimated pulmonary artery peak systolic pressure 46 mmHg. There is no pericardial effusion. No similar previous studies are available for comparison Dr Leandro Connell MD [facility] (Electronically Signed) Final Date: 26 May 2024 07:38 S
[2024-05-26 04:05] LABS: C Reactive Protein 8.3 mg/L (0.0-4.9)
[2024-05-26] MEDS: clopidogrel 300 mg Tablet PO (04:09)
[2024-05-26 04:44] LABS: Estmated Average Glucose 108; Hemoglobin A1C 5.4 % (4.0-6.0)
--- NOTE | 2024-05-26 06:00 | ECG_ITS ---
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 Measurements Intervals [place] Rate: 66 P: 55 WV: 211 QRS: 63 QRSD: 96 T: 87 QT: 450 QTc: 473 Interpretive Statements SINUS RHYTHM WITH FIRST DEGREE AV BLOCK POSSIBLE LEFT ATRIAL ENLARGEMENT [-0.1mV P-WAVE IN V1/V2] LATERAL MYOCARDIAL INFARCTION , PROBABLY RECENT [40+ ms Q WAVE AND/OR ST/T ABNORMALITY IN I/aVL/V5/V6] ACUTE MD Compared to ECG 05/26/2024 03:05:19 First degree AV block now present Myocardial infarct finding still present Electronically Signed On 05-26-2024 6:39:55 CDT by Leandro Connell M.D. [id number]
--- NOTE | 2024-05-26 06:04 | ECG_ITS ---
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 Measurements Intervals [place] Rate: 69 P: 56 CT: 205 QRS: 41 QRSD: 97 T: 70 QT: 423 QTc: 455 Interpretive Statements SINUS RHYTHM POSSIBLE LEFT ATRIAL ENLARGEMENT [-0.1mV P-WAVE IN V1/V2] LATERAL MYOCARDIAL INFARCTION , AGE INDETERMINATE Compared to ECG 05/26/2024 03:05:19 No significant changes Electronically Signed On 05-26-2024 17:17:34 CDT by Pasquale Guerra M.D. [id number] f
[2024-05-26] MEDS: piperacillin-tazobactam 3.375 GM in sodium chloride 0.9% (plus) 50 ML IV ×3 (07:01→22:49)
--- NOTE | 2024-05-26 07:02 | P.CONIM_ITS ---
Providers/Reason For Consult 2 Consulting Physician/Specialty*: Pasquale Guerra MD/ Cardiology Reason for Consult*: NSTEMI Requesting Physician: Dr Lares Attending Physician: Rajni Mccormick MD Primary Care Provider: Arturo Rosa History of Present Illness History of Present Illness Layne Robledo is a 69 year old female with no significant prior cardiac history presented to hospital with 1 to 2 hours of significant left-sided shoulder blade discomfort and shortness of breath. She was found to be in pulmonary edema. NT proBNP was 7883. CT was performed to rule out PE. Initial troponin was 28 that trended up to 150 at 6 hours. EKG showing dynamic changes including ST depressions in inferior leads with changes in lateral and septal leads as well. Review of Systems 2 General: Reports: 10 or more systems reviewed and unremarkable except in HPI and below Medications/Allergies Home Medications Medication Instructions Recorded Confirmed Last Taken Type alprazolam 0.5 mg tablet 0.5 mg PO .UP TO TID PRN Anxiety 07/30/23 05/26/24 Unknown History aspirin 81 mg tablet,delayed 81 mg PO DAILY 07/30/23 05/26/24 05/25/24 History release atorvastatin 10 mg tablet 10 mg PO DAILY 07/30/23 05/26/24 05/25/24 History mqmorcdcgy-nsmnwcwidmxxp-gppjdgfo 1 tab PO Q4H PRN Headache 07/30/23 05/26/24 Unknown History 50 mg-325 mg-40 mg tablet melatonin 10 mg tablet 10 mg PO BEDTIME 07/30/23 05/26/24 05/24/24 History metoprolol succinate 100 mg 100 mg PO DAILY 07/30/23 05/26/24 05/25/24 History tablet,extended release 24 hr omeprazole 20 mg capsule,delayed 20 mg PO DAILY 07/30/23 05/26/24 Unknown History release sertraline 100 mg tablet 100 mg PO DAILY 07/30/23 05/26/24 05/25/24 History tramadol 50 mg tablet 50 mg PO Q6H PRN Pain 07/30/23 05/26/24 Unknown History albuterol sulfate 90 mcg/actuation 2 puff inhalation Q4H PRN 05/26/24 05/26/24 Unknown History aerosol inhaler Shortness Of Breath conjugated estrogens 0.625 mg 0.625 mg PO DAILY 05/26/24 05/26/2405/25/24 History tablet (Premarin) methocarbamol 750 mg tablet 750 mg PO Q6H PRN Muscle Spasm 05/26/24 05/26/24 Unknown History pantoprazole 40 mg tablet,delayed 40 mg PO DAILY 05/26/24 05/26/24 Unknown History release Allergies Allergy/AdvReac Type Severity Reaction Status Date / Time No Known Allergies Allergy Verified 12/31/23 18:00 Current Medications Generic Name Dose Route Start Last Admin Trade Name Freq PRN Reason Stop Dose Admin Heparin Sodium (Porcine) 0 unit 05/26/24 02:55 05/26/24 03:25 Heparin 5,000 Unit/Ml Inj 1 Ml IV 3,800 unit PRN PRN Administration Heparin weight-base protocol Protocol Heparin Sodium/Sodium Chloride 25,000 unit in 500 mls @ 0 mls/hr 05/26/24 03:00 05/26/24 03:31 Heparin Drip IV 14 unit/kg/hr .Q0M MELISSA 21.34 mls/hr Administration Protocol Per Protocol Vitals/I&O/Wt Last Vital Signs Temp 97.8 F 05/26/24 06:00 Pulse 68 05/26/24 06:10 Resp 16 05/26/24 06:10 BP 157/95 05/26/24 06:10 Pulse Ox 96 05/26/24 06:10 O2 Del Method High Flow Nasal Cannula 05/26/24 05:25 O2 Flow Rate 10 05/26/24 05:25 05/25/24 05/26/24 05/26/24 22:59 06:59 14:59 Intake Total 60 / 60 Output Total 800 / 800 Balance -740 / -740 Weight last 48 hrs Weight 170 lb 13.7 oz Weight 170 lb 13.7 oz Weight 170 lb 13.732 oz Weight 168 lb Physical Exam 2 Narrative: GENERAL: Patient is alert, awake and oriented x3. [] NECK: No jugular vein distension. [] HEENT: No cyanosis. No icterus. No pallor. [] HEART: Regular S1 and S2. No murmur, rub or gallop. [] LUNGS: Clear to auscultate bilaterally. [] CENTRAL NERVOUS SYSTEM: Grossly nonfocal. [] EXTREMITIES: Lower extremities with 1+ edema bilaterally. Urinary Catheter Management: Col[place]res: Cath Placed During This Visit: yes Reason for Continuing Indwelling Catheter: Accurate Measurement of Urinary Output in Critically Ill Patients Urinary Catheter Date of Insertion: 05/26/24 Urinary Catheter Time of Insertion: 04:00 Data 05/26/24 00:08 05/26/24 00:08 Micro: Microbiology 05/26/24 01:50 Blood Culture - Preliminary Blood SPECIMEN COLLECTED 05/26/24 01:50 Blood Culture - Preliminary Blood SPECIMEN COLLECTED A&P Assessment and plan (1) NSTEMI (non-ST elevated myocardial infarction): (2) New onset of congestive heart failure: (3) Elevated brain natriuretic peptide (BNP) level: Plan Patient has presented with pulmonary edema and troponins of trended up significantly. Having ongoing chest discomfort symptoms. We will proceed with coronary angiogram with possible percutaneous coronary intervention. Risks and benefits of the procedure have been discussed in detail with patient and family. They understand these and want to proceed. Keep NPO Continue IV diuretics. Close I and Os Has been loaded with aspirin and Plavix. Will obtain echocardiogram. Thank you for involving us in the care of this patient. We will continue to follow. Please call with questions. Consult Attestations 2 Medical Necessity Statement: Care expected to cross 2 midnights. Coding Level of Care Code Acute Code for [facility] Fw Diagnoses NSTEMI (non-ST elevated myocardial infarction) I21.4 New onset of congestive heart failure I50.9 Elevated brain natriuretic peptide (BNP) level R79.89
[2024-05-26] MEDS: vancomycin 1,000 MG in sodium chloride 0.9% 250 ML 250 MG IV (07:03)
[2024-05-26 07:18] LABS: Troponin 5 6HR 150.4 ng/L (0-10); Troponin 5 6HR Delta 122.4 ng/L (0-12)
--- NOTE | 2024-05-26 07:21 | PC.NURSE ---
Dr Guerra in to see patient this morning. Discussed plan for left heart catheterization today at 10am. Patient and daughter both verbalized complete understanding. Instructed patient on preparations for testing.
--- NOTE | 2024-05-26 07:39 | PC.NURSE ---
Performed med rec using patient's medication bottles. Most bottles have several doses. Daughter informed this RN that patient does not take her medications as prescribed if at all. Patient is a current smoker as well. Provided education on importance of medication compliance in light of possible heart stenting. Verbalized understanding.
[2024-05-26] MEDS: ipratropium-albuterol 3 mL Neb INHALATION ×3 (07:51→19:47)
--- NOTE | 2024-05-26 08:13 | PC.NURSE ---
Patient prepped for C. Trimmed and pulses marked.
--- NOTE | 2024-05-26 09:17 | ECG_ITS ---
[facility] Test Date: 2024-05-26 Pat Name: Layne Robledo Department: Room: ICU02 Gender: Female Teacher: MARIELENA: 1955 Requested By: Rajni Mccormick Order Number: [id number] Reading MD: Pasquale Guerra M.D. Measurements Intervals [place] Rate: 78 P: 67 ND: 221 QRS: 61 QRSD: 95 T: 89 QT: 421 QTc: 480 Interpretive Statements SINUS RHYTHM WITH FIRST DEGREE AV BLOCK POSSIBLE LEFT ATRIAL ENLARGEMENT [-0.1mV P-WAVE IN V1/V2] LATERAL MYOCARDIAL INFARCTION ,AGE INDETERMINATE Compared to ECG 05/26/2024 06:31:54 No significant changes Electronically Signed On 05-26-2024 17:16:50 CDT by Pasquael Guerra M.D. [id number]
--- NOTE | 2024-05-26 10:17 | PC.NURSE ---
Patient taken to cardiac cath tech via bed and 2 cardiac cath tech RNs.
[2024-05-26 10:36] LABS: Partial Thromboplastin Time 166.7 SECONDS (23.9-36.7)
--- NOTE | 2024-05-26 10:37 | W.PM.OPSUD ---
Surgery/Procedure H&P Update DATE OF PROCEDURE: May 26, 2024 DATE H&P PERFORMED: 05/26/24 H&P UPDATE INFORMATION: I have reviewed H&P completed within last 30 days, I have examined patient prior to procedure and No changes to prior documentation PREOP DIAGNOSIS: NSTEMI PRIMARY INDICATION FOR PROCEDURE: NSTEMI PLANNED PROCEDURE: Left heart cath with possible percutaneous coronary intervention PATIENT REASSESSED PRIOR TO SEDATION, WITH NO CHANGE NOTED: Yes PHYSICAL EXAM: alert, oriented x 3, clear to auscultation bilaterally and regular rate & rhythm AIRWAY EVAL/ANESTHESIA PLAN: normal airway, ASA III, Local Anesthesia, Risks, benefits & alternatives of sedation and/or procedure discussed and Patient agrees to continue as planned ADDITIONAL INFORMATION: Moderate sedation
--- NOTE | 2024-05-26 12:12 | PC.NURSE ---
Patient received from slab lifting supervisor via bed. Patient is s/p [facility] with right femoral access. Sheath remains stitched in place attached to pressure bag. TR Band in place to right radial for attempted access without success. No s/s of bleeding or hematoma formation observed. Patient currently on 4L HF cannula with SpO2 of 96%. Patient remains asleep with even, non-labored respirations observed. Will continue to monitor.
--- NOTE | 2024-05-26 12:20 | PM.MISC ---
Miscellaneous Note Purpose of Documentation: Brief procedue note Note: Left heart cath: Has severe, eccenteric, 60% ostial left main artery stenosis. IVUS had MLA of 6.1mm2. Culprit for NSTEMI and pulmonary edema. LVEDP is elevated at 28mmHg. LAD has mild luminal irregularities. LCx is patent. RCA is patent. PLAN: Discussed with patient and family the options of CABG vs PCI of left main artery. They are discussing and will inform us once make a decision. Monitor renal function. If patient and family want to proceed with PCI, will plan in the next 1-2 days based on renal function. All options, alternatives, risks and benefits have been discussed.
--- NOTE | 2024-05-26 12:57 | PC.NURSE ---
Spoke with Dr Guerra. Received orders to pull sheath when PTT <50 and to restart heparin 4 hours after sheath pull. RBVO
--- NOTE | 2024-05-26 14:41 | P.PN_ITS ---
Subjective 2 Subjective: Patient was seen this morning, she is alert to person, to place, to time she follows all commands, does report a smoking history, does report that she has been progressively more short of breath than normal, no chest pain per se, no lower extremity, she does tell me that the shortness of breath all of a sudden hit her last night, she is never experienced anything like this before, she is awaiting coronary angiography, no PE, her CT angiogram was negative, she does report intermittent wheezing, but no formal diagnosis of COPD, discussed with patient and family that based upon her history it sounds like she has developed flash pulmonary edema that caused her to go into acute hypoxic respiratory failure, the question is what is the etiology, given her elevated troponins, the concern is is that could there be a obstructive coronary artery disease causing all this, her echocardiogram does not show any significant valvular disease, the other thought is could she have had a bronchospasm, certainly that is possible, however no active wheezing currently, she is clear in all lung temple, her [id number] at bedside does tell me that she when family checked up on her she was actively wheezing, will continue to monitor closely we will see how she does with her coronary angiography Vitals/I&O/Wt Last Vital Signs Temp 97.6 F 05/26/24 12:11 Pulse 83 05/26/24 14:15 Resp 16 05/26/24 14:15 BP 147/82 05/26/24 14:15 Pulse Ox 95 05/26/24 14:15 O2 Del Method High Flow Nasal Cannula 05/26/24 14:06 O2 Flow Rate 2 05/26/24 14:06 05/25/24 05/26/24 05/26/24 22:59 06:59 14:59 Intake Total 60 / 60 446.89 / 446.89 Output Total 800 / 800 1300 / 1300 Balance -740 / -740 -853.11 / -853.11 Weight last 48 hrs Weight 77.499 kg Weight 77.499 kg Weight 77.5 kg Weight 76.204 kg Physical Exam 2 Const: COMMON NORMALS: no acute distress and patient oriented x3 Resp: COMMON NORMALS: normal respiratory effort, No retractions, No use of accessory muscles and clear to auscultation bilaterally AUSCULTATION: clear to auscultation bilaterally Cardio: COMMON NORMALS: regular rate, regular rhythm, S1 normal heart sound present and S2 normal heart sound present RATE: regular rate RHYTHM: r egular rhythm HEART SOUNDS: S1 normal heart sound present and S2 normal heart sound present GI: COMMON NORMALS: Normal to inspection, nondistended, normoactive bowel sounds present and non-tender Extremity: COMMON NORMALS: no pedal edema Neuro: COMMON NORMALS: patient oriented x3 Psych: COMMON NORMALS: mental status grossly normal Urinary Catheter Management: Colindres: Cath Placed During This Visit: yes Reason for Continuing Indwelling Catheter: Accurate Measurement of Urinary Output in Critically Ill Patients Urinary Catheter Date of Insertion: 05/26/24 Urinary Catheter Time of Insertion: 04:00 Data 05/26/24 00:08 05/26/24 00:08 Micro: Microbiology 05/26/24 01:50 Blood Culture - Preliminary Blood SPECIMEN COLLECTED 05/26/24 01:50 Blood Culture - Preliminary Blood SPECIMEN COLLECTED A&P Assessment and plan (1) Pulmonary edema: Qualifiers: Chronicity: acute Qualified Code(s): J81.0 - Acute pulmonary edema (2) Elevated d-dimer: (3) Hypothermia: (4) NSTEMI (non-ST elevated myocardial infarction): (5) Anxiety: (6) CKD (chronic kidney disease): (7) New onset of congestive heart failure: (8) Acute respiratory failure with hypoxia: (9) Elevated brain natriuretic peptide (BNP) level: Plan #Acute hypoxia most likely secondary to acute flash pulmonary edema, fluid overload, some component COPD exacerbation #COPD #NSTEMI #flash pulmonary edema cardiac echo CONCLUSIONS Moderate left ventricular hypertrophy. Normal left ventricular size with a slightly diminished ejection fraction of 50%.Grade II/IV diastolic dysfunction, moderately elevated filling pressures. Moderatly increased left atrial size. Thickened aortic valve. Thickened aortic valve. Trace tricuspid valve regurgitation. Estimated pulmonary artery peak systolic pressure 46 mmHg. There is no pericardial effusion. No similar previous studies are available for comparison #Hypothermia #Sepsis secondary to possibly bilateral pneumonia? CT/CT angio chest PE protcl [id number] IMPRESSION: 1. Negative for pulmonary artery embolism. 2. Interstitial edema. 3. Scattered ground-glass airspace opacities could reflect pulmonary edema, nonspecific inflammatory pneumonitis, or atypical infection. -Respiratory viral panel negative, CRP within normal limits, thus likely CT scanning's as above is more likely pulmonary edema than infection, but will continue antibiotics for now -BNP 783 #NSTEMI, #CKD #Anxiety depression ? Started on ACS protocol. Aspirin, Plavix, atorvastatin, heparin drip. Plan on cardiac catheterization ? Respiratory viral panel negative ? Baseline creatinine 1.1. Today creatinine 1.2. ? Ordered Lasix 40 IV daily ? May escalate to BiPAP if needed. Low threshold for intubation ? Check sputum Gram stain culture ? Active rewarming protocol. Placed on Matthew hugger ? Protonix 40 IV daily ? Admit to ICU at this time, placed on telemetry ? Placed on Solu-Medrol 40 IV twice daily ? Patient will need formal PFTs at discharge and establishment with speedometer inspector. ? Placed on vancomycin and Zosyn DVT prophylaxis: On heparin drip Full code Attestations 2 Medical Necessity Statement*: Patient requires hospitalization for NSTEMI, acute hypoxic respiratory failure, flash pulm edema Diagnoses Pulmonary edema J81.0 Chronicity: acute Elevated d-dimer R79.89 Hypothermia T68.XXXA NSTEMI (non-ST elevated myocardial infarction) I21.4 Anxiety F41.9 CKD (chronic kidney disease) N18.9 New onset of congestive heart failure I50.9 Acute respiratory failure with hypoxia J96.01 Elevated brain natriuretic peptide (BNP) level R79.89
--- NOTE | 2024-05-26 14:41 | PC.NURSE ---
Initiated TR Band removal at 1230 removal 2ml of air every 15-20min until all air removed at this time. TR band removed. No s/s of bleeding or hematoma formation observed. Covered site with 2x2 and coban. Instructed patient on site care and restrictions to include the need to continue to lie flat. Patient verbalized understanding. PTT drawn for pending sheath removal. Right groin remains c,d,i without s/s of bleeding or hematoma formation. Will continue to monitor.
[2024-05-26 15:11] LABS: Partial Thromboplastin Time 33.4 SECONDS (23.9-36.7)
--- NOTE | 2024-05-26 16:22 | PC.NURSE ---
Initiated sheath removal at 1555 per protocol. Maintained pressure for 20 min. No s/s of bleeding or hematoma formation observed. Instructed patient on site care and restrictions. Patient verbalized understanding. VS remained within her normals. Patient tolerated well.
--- NOTE | 2024-05-26 16:42 | PC.NURSE ---
Spoke with Dr Guerra. Plan is for PCI in the am if creatinine is stable. Placed order for BMP tonight at 1900 and patient to be NPO after midnight.
[2024-05-26 19:21] LABS: Anion Gap 18.2 (5-19); Blood Urea Nitrogen 24 mg/dL (8-23); Calcium 8.9 mg/dL (8.5-10.5); Carbon Dioxide 22 mmol/L (22-29); Chloride 97 mmol/L (98-107); Creatinine Clr Calc Pharmacy 44.2588; Glucose 146 mg/dL (65-115); Osmolality Calculated 283 mOsm/kg (285-295); Potassium 4.2 mmol/L (3.5-5.1); Sodium 133 mmol/L (136-145)
[2024-05-26] MEDS: atorvastatin 40 mg Tablet 80 MG PO (21:37)
[2024-05-27] VITALS (41 sets, daily range): BP systolic 110–155; BP diastolic 68–99; PULSE 63–78; RESP 13–22; TEMP 36.3–37; O2SAT 88–97; BMI 28.4
[2024-05-27] MEDS: ipratropium-albuterol 3 mL Neb INHALATION ×3 (01:46→14:01)
[2024-05-27 05:53] LABS: Basophils % 0.2 %; Eosinophils % 0.1 %; Hematocrit 41.4 % (36-47); Lymphocytes # 1.2 10^3/uL (0.8-4.8); Lymphocytes % 8.1 %; Mean Corpuscular HGB Conc 33.1 g/dL (30-55); Mean Corpuscular Volume 93.7 fl (85-98); Mean Platelet Volume 10.9 fL (7.4-10.4); Monocytes # 0.9 10^3/uL (0.2-0.9); Neutrophils # 12.19 10^3/uL (1.8-7.7); Neutrophils % 85.3 %; Nucleated Red Blood Cells % 0 %; Platelet Count 225 10^3/cmm (157-399); Red Blood Count 4.42 10^6/uL (3.85-5.65); White Blood Count 14.28 10^3/uL (3.29-11.43)
[2024-05-27] MEDS: piperacillin-tazobactam 3.375 GM in sodium chloride 0.9% (plus) 50 ML IV ×3 (06:12→21:10)
[2024-05-27 06:13] LABS: Alanine Aminotransferase 16 U/L (0-33); Albumin Level 3.9 g/dL (3.5-5.2); Alkaline Phosphatase 69 U/L (35-105); Aspartate Amino Transferase 57 U/L (0-32); Blood Urea Nitrogen 28 mg/dL (8-23); Calcium 9.1 mg/dL (8.5-10.5); Carbon Dioxide 23 mmol/L (22-29); Chloride 101 mmol/L (98-107); Creatinine Clr Calc Pharmacy 37.9361; Globulin 2.6 g/dL (1.3-4.6); Glucose 111 mg/dL (65-115); Magnesium 2.1 mg/dL (1.7-2.3); Osmolality Calculated 292 mOsm/kg (285-295); Sodium 138 mmol/L (136-145); Total Bilirubin 1.1 mg/dL (0.15-1.2); Total Protein 6.5 g/dL (6.6-8.7)
[2024-05-27 06:45] LABS: NT Pro B Type Natriuretic Pept 48268 pg/mL (0-125)
--- NOTE | 2024-05-27 07:00 | XRR_ITS ---
PROCEDURE INFORMATION: Exam: XR Chest Exam date and time: 05/27/2024 5:13 AM Age: 69 years old Clinical indication: Shortness of breath; Additional info: SOB TECHNIQUE: Imaging protocol: Radiologic exam of the chest. Views: 1 view. COMPARISON: CT angio chest PE protcl [id number] 05/26/2024 1:04 AM FINDINGS: Lungs: Unremarkable. No consolidation. Pleural spaces: Unremarkable. No pleural effusion. No pneumothorax. Heart/Mediastinum: The heart is borderline enlarged. There is calcified plaque involving the aorta. Bones/joints: Unremarkable. XR/XR chest 1V portable [id number] IMPRESSION: 1. Mild cardiomegaly. 2. No acute pulmonary findings. Lung aeration appears to be improved on today's exam when compared to prior exam.
--- NOTE | 2024-05-27 07:03 | P.PN_ITS ---
Subjective 2 Subjective: Patient had successful revascularization of left main artery with 1 stent. No chest pain. Vitals/I&O/Wt Last Vital Signs Temp 97.4 F L 05/27/24 06:06 Pulse 67 05/27/24 06:06 Resp 20 H 05/27/24 06:06 BP 129/77 05/27/24 06:06 Pulse Ox 91 05/27/24 06:06 O2 Del Method High Flow Nasal Cannula 05/27/24 01:47 O2 Flow Rate 2 05/27/24 01:47 05/26/24 05/27/24 05/27/24 22:59 06:59 14:59 Intake Total 50 / 496.89 50 / 546.89 Output Total 350 / 1650 800 / 2450 Balance -300 / -1153.11 -750 / -1903.11 Weight last 48 hrs Weight 170 lb 13.7 oz Weight 170 lb 13.7 oz Weight 170 lb 13.7 oz Weight 170 lb 13.732 oz Weight 168 lb Physical Exam 2 Narrative: GENERAL: Patient is alert, awake and oriented x3. [] NECK: No jugular vein distension. [] HEENT: No cyanosis. No icterus. No pallor. [] HEART: Regular S1 and S2. No murmur, rub or gallop. [] LUNGS: Clear to auscultate bilaterally. [] CENTRAL NERVOUS SYSTEM: Grossly nonfocal. [] EXTREMITIES: Lower extremities with 1+ edema bilaterally. Urinary Catheter Management: Colindres: Cath Placed During This Visit: yes Reason for Continuing Indwelling Catheter: Accurate Measurement of Urinary Output in Critically Ill Patients Urinary Catheter Date of Insertion: 05/26/24 Urinary Catheter Time of Insertion: 04:00 Data 05/28/24 03:20 05/28/24 03:20 Micro: Microbiology 05/26/24 01:50 Blood Culture - Preliminary Blood NEGATIVE TO DATE 05/26/24 01:50 Blood Culture - Preliminary Blood NEGATIVE TO DATE A&P Assessment and plan (1) NSTEMI (non-ST elevated myocardial infarction): (2) New onset of congestive heart failure: (3) Elevated brain natriuretic peptide (BNP) level: Plan Patient had successful revascularization of left main artery with 1 stent. Continue aspirin and plavix IV fluids. Monitor renal function and if stable by tomorrow, plan for discharge. ECHO shows normal LV systolic function Thank you for involving us in the care of this patient. We will continue to follow. Please call with questions. Attestations 2 Medical Necessity Statement*: Care expected to cross 2 midnights. Coding Level of Care Code Acute Code for [facility] Diagnoses NSTEMI (non-ST elevated myocardial infarction) I21.4 New onset of congestive heart failure I50.9 Elevated brain natriuretic peptide (BNP) level R79.89
[2024-05-27] MEDS: aspirin 81 mg EC Tablet PO (08:36)
[2024-05-27] MEDS: clopidogrel 75 mg Tablet PO (08:36)
[2024-05-27] MEDS: diphenhydrAMINE 25 mg Capsule PO (08:37)
[2024-05-27] MEDS: LORazepam 2 mg/mL INJ 1 mL 0.5 MG IVP (09:06)
--- NOTE | 2024-05-27 10:39 | P.HPUD_ITS ---
Surgery/Procedure H&P Update DATE OF PROCEDURE: May 27, 2024 DATE H&P PERFORMED: 05/26/24 H&P UPDATE INFORMATION: I have reviewed H&P completed within last 30 days, I have examined patient prior to procedure and Changes to prior documentation as noted here CHANGES TO PREVIOUS DOCUMENTATION: Patient was found to have ostial left main artery stenosis. This is culprit lesion for non-ST elevation VT and flash pulmonary edema. Patient and family given all options. Also had heart team discussion with CT surgery team at [facility] (Dr Key). Given low syntax score, patient's and family's preference and her presentation, plan to proceed with high risk intervention of ostial left main artery. Patient and family understand the risks and benefits of the procedure. I also had a discussion regarding lack of CT surgery backup at our hospital with patient and her family. They understand that as well and want to proceed here. May need LV support device placement. PREOP DIAGNOSIS: NSTEMI PRIMARY INDICATION FOR PROCEDURE: NSTEMI/ Severe ostial left main artery stenosis. PLANNED PROCEDURE: Operation Date: 05/26/24 10:30 Proposed Procedures p Cardiac Catheterization(Not Applicable) - Pasquale Guerra M.D Left main artery intervention PATIENT REASSESSED PRIOR TO SEDATION, WITH NO CHANGE NOTED: Yes PHYSICAL EXAM: alert, oriented x 3, clear to auscultation bilaterally and regular rate & rhythm AIRWAY EVAL/ANESTHESIA PLAN: normal airway, ASA III, Local Anesthesia, Risks, benefits & alternatives of sedation and/or procedure discussed and Patient agrees to continue as planned ADDITIONAL INFORMATION: Moderate sedation
--- NOTE | 2024-05-27 11:37 | PC.NURSE ---
To Mechanical Service Representative at 1030 by senior label specialist team. Patient AAOx4, GCS 15, VSS, no complaint of chest pain. Family made aware in waiting room.
--- NOTE | 2024-05-27 12:19 | PC.NURSE ---
1200 back to room, AAOx4, GCS 15, VSS, 3+ pulses to all four extremities.
--- NOTE | 2024-05-27 14:07 | P.PN_ITS ---
Subjective 2 Subjective: Patient was seen this morning, she is chest pain-free, currently n.p.o., awaiting her cardiac catheterization procedure no fevers, chills, no cough she is alert oriented x 3, following commands, risk and benefits discussed about procedure, she voiced understanding, all questions answered shared decision making, she wants to go ahead and proceed, confirmed her CODE STATUS she is a full code, however does not want to be kept on life-sustaining measures if the likelihood of her having a meaningful coverage very unlikely, we also talked about short-term dialysis for concerns for contrast-induced nephropathy however she is uncertain at this time, want some time to think on the answer Vitals/I&O/Wt Last Vital Signs Temp 97.4 F L 05/27/24 06:06 Pulse 72 05/27/24 14:06 Resp 16 05/27/24 14:00 BP 131/75 05/27/24 12:06 Pulse Ox 95 05/27/24 14:00 O2 Del Method Room Air 05/27/24 14:00 O2 Flow Rate 2 05/27/24 01:47 05/26/24 05/27/24 05/27/24 22:59 06:59 14:59 Intake Total 50 / 496.89 50 / 546.89 50 / 50 Output Total 350 / 1650 800 / 2450 Balance -300 / -1153.11 -750 / -1903.11 50 / 50 Weight last 48 hrs Weight 77.499 kg Weight 77.499 kg Weight 77.499 kg Weight 77.5 kg Weight 76.204 kg Physical Exam 2 Const: COMMON NORMALS: no acute distress and patient oriented x3 Neck/C-Spine: COMMON NORMALS: no JVD Resp: COMMON NORMALS: normal respiratory effort, No retractions, No use of accessory muscles and clear to auscultation bilaterally AUSCULTATION: clear to auscultation bilaterally Cardio: COMMON NORMALS: no JVD, regular rate, regular rhythm, S1 normal heart sound present and S2 normal heart sound present RATE: regular rate RHYTHM: regular rhythm HEART SOUNDS: S1 normal heart sound present and S2 normal heart sound present GI: COMMON NORMALS: Normal to inspection, nondistended, normoactive bowel sounds present and non-tender Extremity: COMMON NORMALS: no pedal edema Neuro: COMMON NORMALS: patient oriented x3 Psych: COMMON NORMALS: mental status grossly normal Urinary Catheter Management: Colindres: Cath Placed During This Visit: yes Reason for Continuing Indwelling Catheter: Accurate Measurement of Urinary Output in Critically Ill Patients Urinary Catheter Date of Insertion: 05/26/24 Urinary Catheter Time of Insertion: 04:00 Data 05/27/24 05:20 05/27/24 05:20 Micro: Microbiology 05/26/24 01:50 Blood Culture - Preliminary Blood NEGATIVE TO DATE 05/26/24 01:50 Blood Culture - Preliminary Blood NEGATIVE TO DATE A&P Assessment and plan (1) Pulmonary edema: Qualifiers: Chronicity: acute Qualified Code(s): J81.0 - Acute pulmonary edema (2) Elevated d-dimer: (3) Hypothermia: (4) NSTEMI (non-ST elevated myocardial infarction): (5) Anxiety: (6) CKD (chronic kidney disease): (7) New onset of congestive heart failure: (8) Acute respiratory failure with hypoxia: (9) Elevated brain natriuretic peptide (BNP) level: Plan #Acute hypoxia most likely secondary to acute flash pulmonary edema, fluid overload, some component COPD exacerbation #COPD #NSTEMI #flash pulmonary edema cardiac echo CONCLUSIONS Moderate left ventricular hypertrophy. Normal left ventricular size with a slightly diminished ejection fraction of 50%.Grade II/IV diastolic dysfunction, moderately elevated filling pressures. Moderatly increased left atrial size. Thickened aortic valve. Thickened aortic valve. Trace tricuspid valve regurgitation. Estimated pulmonary artery peak systolic pressure 46 mmHg. There is no pericardial effusion. No similar previous studies are available for comparison #Hypothermia, resolved #Sepsis secondary to possibly bilateral pneumonia? CT/CT angio chest PE protcl [id number] IMPRESSION: 1. Negative for pulmonary artery embolism. 2. Interstitial edema. 3. Scattered ground-glass airspace opacities could reflect pulmonary edema, nonspecific inflammatory pneumonitis, or atypical infection. -Respiratory viral panel negative, CRP within normal limits, thus likely CT scanning's as above is more likely pulmonary edema than infection, continue Zosyn #NSTEMI, #CKD #Anxiety depression ? Started on ACS protocol. Aspirin, Plavix, atorvastatin, heparin drip. Plan on cardiac catheterization ? Respiratory viral panel negative ? Baseline creatinine 1.1. Today creatinine 1.4. ? Left heart catheter showed Has severe, eccenteric, 60% ostial left main artery stenosis. IVUS had MLA of 6.1mm2. Culprit for NSTEMI and pulmonary edema. LVEDP is elevated at 28mmHg. LAD has mild luminal irregularities. LCx is patent. RCA is patent. -Patient wants to proceed with PCI of left main artery, plan on cardiac catheterization today ? Check sputum Gram stain culture ? Protonix 40 IV daily ? Admit to ICU at this time, placed on telemetry ? Solu-Medrol has stopped, likely elevation of patient's BMP ? Patient will need formal PFTs at discharge and establishment with sustainability project manager. ? Placed on Zosyn DVT prophylaxis: On heparin drip Full code Plan cardiac catheterization of left main disease, monitor closely, WBC up to 14.28, likely reactive from steroids, creatinine 1.4, will receive gentle IV hydration after cardiac cath, BNP over 40,000, is not requiring oxygen no complaints of shortness of breath, will monitor for fluid overload Attestations 2 Medical Necessity Statement*: Patient requires hospitalization for left main disease, will undergo cardiac catheterization, Diagnoses Pulmonary edema J81.0 Chronicity: acute Elevated d-dimer R79.89 Hypothermia T68.XXXA NSTEMI (non-ST elevated myocardial infarction) I21.4 Anxiety F41.9 CKD (chronic kidney disease) N18.9 New onset of congestive heart failure I50.9 Acute respiratory failure with hypoxia J96.01 Elevated brain natriuretic peptide (BNP) level R79.89
[2024-05-27] MEDS: sodium chloride 0.9% 1,000 ML 75 ML IV (14:20)
[2024-05-27 14:59] LABS: Partial Thromboplastin Time 89.1 SECONDS (23.9-36.7)
[2024-05-27 15:57] LABS: Partial Thromboplastin Time 36.7 SECONDS (23.9-36.7)
[2024-05-27] MEDS: fentaNYL 50 mcg/mL INJ 2mL IVP (16:40)
[2024-05-27 19:15] LABS: Anion Gap 14.5 (5-19); Blood Urea Nitrogen 28 mg/dL (8-23); Calcium 8.9 mg/dL (8.5-10.5); Carbon Dioxide 26 mmol/L (22-29); Chloride 100 mmol/L (98-107); Creatinine Clr Calc Pharmacy 40.8542; Glucose 86 mg/dL (65-115); Osmolality Calculated 289 mOsm/kg (285-295); Potassium 3.5 mmol/L (3.5-5.1); Sodium 137 mmol/L (136-145)
[2024-05-27] MEDS: atorvastatin 40 mg Tablet 80 MG PO (21:10)
[2024-05-28] VITALS (32 sets, daily range): BP systolic 103–149; BP diastolic 53–86; PULSE 65–86; RESP 12–24; TEMP 36.8–37.2; O2SAT 89–100; BMI 27.8
[2024-05-28] MEDS: sodium chloride 0.9% 1,000 ML 75 ML IV (00:09)
[2024-05-28 04:18] LABS: Basophils # 0.1 10^3/uL (0.0-0.1); Basophils % 0.7 %; Eosinophils # 0.1 10^3/uL (0.0-0.8); Eosinophils % 0.5 %; Hematocrit 37.9 % (36-47); Lymphocytes # 1.1 10^3/uL (0.8-4.8); Lymphocytes % 10.7 %; Mean Corpuscular HGB Conc 32.5 g/dL (30-55); Mean Corpuscular Volume 95.5 fl (85-98); Monocytes # 0.8 10^3/uL (0.2-0.9); Monocytes % 7.2 %; Neutrophils # 8.43 10^3/uL (1.8-7.7); Neutrophils % 80.4 %; Nucleated Red Blood Cells % 0 %; Platelet Count 192 10^3/cmm (157-399); Red Blood Count 3.97 10^6/uL (3.85-5.65); Red Cell Distribution Width 14.2 % (12.1-15.1); White Blood Count 10.47 10^3/uL (3.29-11.43)
[2024-05-28 04:39] LABS: Alanine Aminotransferase 14 U/L (0-33); Albumin Level 3.4 g/dL (3.5-5.2); Alkaline Phosphatase 62 U/L (35-105); Anion Gap 14.5 (5-19); Aspartate Amino Transferase 38 U/L (0-32); Blood Urea Nitrogen 27 mg/dL (8-23); Carbon Dioxide 25 mmol/L (22-29); Chloride 102 mmol/L (98-107); Creatinine Clr Calc Pharmacy 37.9361; Glucose 91 mg/dL (65-115); Osmolality Calculated 291 mOsm/kg (285-295); Phosphorus 2.4 mg/dL (2.5-4.5); Potassium 3.5 mmol/L (3.5-5.1); Sodium 138 mmol/L (136-145); Total Bilirubin 1.4 mg/dL (0.15-1.2); Total Protein 6.4 g/dL (6.6-8.7)
[2024-05-28 05:03] LABS: NT Pro B Type Natriuretic Pept 29035 pg/mL (0-125)
[2024-05-28] MEDS: piperacillin-tazobactam 3.375 GM in sodium chloride 0.9% (plus) 50 ML IV (05:28)
[2024-05-28] MEDS: ipratropium-albuterol 3 mL Neb INHALATION ×3 (08:23→20:55)
--- NOTE | 2024-05-28 08:30 | P.PN_ITS ---
Subjective 2 Subjective: Patient is doing well. no chest pain. Vitals/I&O/Wt Last Vital Signs Temp 98.3 F 05/28/24 04:33 Pulse 77 05/28/24 08:00 Resp 16 05/28/24 08:00 BP 139/76 05/28/24 06:30 Pulse Ox 96 05/28/24 08:00 O2 Del Method Room Air 05/28/24 08:00 O2 Flow Rate 2 05/27/24 01:47 05/27/24 05/28/24 05/28/24 22:59 06:59 14:59 Intake Total 170 / 220 786.25 / 1006.25 Output Total 400 / 400 350 / 750 Balance -230 / -180 436.25 / 256.25 Weight last 48 hrs Weight 167 lb 3.2 oz Weight 170 lb 13.7 oz Physical Exam 2 Narrative: GENERAL: Patient is alert, awake and oriented x3. [] NECK: No jugular vein distension. [] HEENT: No cyanosis. No icterus. No pallor. [] HEART: Regular S1 and S2. No murmur, rub or gallop. [] LUNGS: Clear to auscultate bilaterally. [] CENTRAL NERVOUS SYSTEM: Grossly nonfocal. [] EXTREMITIES: Lower extremities with 1+ edema bilaterally. Urinary Catheter Management: Colindres: Cath Placed During This Visit: yes Reason for Continuing Indwelling Catheter: Accurate Measurement of Urinary Output in Critically Ill Patients Urinary Catheter Date of Insertion: 05/26/24 Urinary Catheter Time of Insertion: 04:00 Data 05/28/24 03:20 05/28/24 03:20 A&P Assessment and plan (1) NSTEMI (non-ST elevated myocardial infarction): (2) New onset of congestive heart failure: (3) Elevated brain natriuretic peptide (BNP) level: Plan Patient had successful revascularization of left main artery with 1 stent. Continue aspirin and plavix Gentle IV hydration. Monitor renal function and if stable by tomorrow, can be discharged home on DAPT, statin and beta layton. Thank you for involving us in the care of this patient. Please call with questions. Attestations 2 Medical Necessity Statement*: Care expected to cross 2 midnights. Coding Level of Care Code Acute Code for [facility] Diagnoses NSTEMI (non-ST elevated myocardial infarction) I21.4 New onset of congestive heart failure I50.9 Elevated brain natriuretic peptide (BNP) level R79.89
[2024-05-28] MEDS: clopidogrel 75 mg Tablet PO (09:26)
[2024-05-28] MEDS: metoprolol succinate ER (24 HR) 25 mg Tablet PO (09:27)
[2024-05-28] MEDS: enoxaparin 40 mg/0.4 mL Syringe SUBCUT (09:27)
[2024-05-28] MEDS: aspirin 81 mg EC Tablet PO (09:27)
--- NOTE | 2024-05-28 10:51 | PC.NURSE ---
Report called to Flow RN on CSU. Patient and belongings taken to room 112-1 via wheel chair by this nurse. Family called and notified.
[2024-05-28] MEDS: sertraline 100 mg Tablet PO (12:15)
[2024-05-28] MEDS: pantoprazole DR 40 mg Tablet PO (12:15)
--- NOTE | 2024-05-28 12:29 | PC.SOCIAL ---
IMM updated IMM dated and initialed, copy given to patient and placed in chart.
--- NOTE | 2024-05-28 15:15 | P.PN_ITS ---
Subjective 2 Subjective: Patient was seen this morning, denies any fevers, chills, does report shortness of breath intermittently, no cough Vitals/I&O/Wt Last Vital Signs Temp 98.9 F 05/28/24 14:00 Pulse 79 05/28/24 15:03 Resp 16 05/28/24 14:00 BP 121/70 05/28/24 14:00 Pulse Ox 95 05/28/24 14:00 O2 Del Method Room Air 05/28/24 14:00 O2 Flow Rate 2 05/27/24 01:47 05/28/24 05/28/24 05/28/24 06:59 14:59 22:59 Intake Total 786.25 / 1006.25 1528 / 1528 Output Total 350 / 750 250 / 250 Balance 436.25 / 256.25 1278 / 1278 Weight last 48 hrs Weight 75.841 kg Weight 77.499 kg Physical Exam 2 Const: COMMON NORMALS: no acute distress and patient oriented x3 Neck/C-Spine: COMMON NORMALS: no JVD Resp: COMMON NORMALS: normal respiratory effort, No retractions, No use of accessory muscles and clear to auscultation bilaterally AUSCULTATION: clear to auscultation bilaterally Cardio: COMMON NORMALS: no JVD, regular rate, regular rhythm, S1 normal heart sound present and S2 normal heart sound present RATE: regular rate RHYTHM: regular rhythm HEART SOUNDS: S1 normal heart sound present and S2 normal heart sound present GI: COMMON NORMALS: Normal to inspection, nondistended, normoactive bowel sounds present and non-tender Extremity: COMMON NORMALS: no pedal edema Neuro: COMMON NORMALS: patient oriented x3 Psych: COMMON NORMALS: mental status grossly normal Urinary Catheter Management: Colindres: Cath Placed During This Visit: yes Reason for Continuing Indwelling Catheter: Accurate Measurement of Urinary Output in Critically Ill Patients Urinary Catheter Date of Insertion: 05/26/24 Urinary Catheter Time of Insertion: 04:00 Data 05/28/24 03:20 05/28/24 03:20 A&P Assessment and plan (1) Pulmonary edema: Qualifiers: Chronicity: acute Qualified Code(s): J81.0 - Acute pulmonary edema (2) Elevated d-dimer: (3) Hypothermia: (4) NSTEMI (non-ST elevated myocardial infarction): (5) Anxiety: (6) CKD (chronic kidney disease): (7) New onset of congestive heart failure: (8) Acute respiratory failure with hypoxia: (9) Elevated brain natriuretic peptide (BNP) level: Plan #Acute hypoxia most likely secondary to acute flash pulmonary edema, fluid overload, some component COPD exacerbation #COPD #NSTEMI #flash pulmonary edema cardiac echo CONCLUSIONS Moderate left ventricular hypertrophy. Normal left ventricular size with a slightly diminished ejection fraction of 50%.Grade II/IV diastolic dysfunction, moderately elevated filling pressures. Moderatly increased left atrial size. Thickened aortic valve. Thickened aortic valve. Trace tricuspid valve regurgitation. Estimated pulmonary artery peak systolic pressure 46 mmHg. There is no pericardial effusion. No similar previous studies are available for comparison #Hypothermia, resolved #Sepsis secondary to possibly bilateral pneumonia? CT/CT angio chest PE protcl [id number] IMPRESSION: 1. Negative for pulmonary artery embolism. 2. Interstitial edema. 3. Scattered ground-glass airspace opacities could reflect pulmonary edema, nonspecific inflammatory pneumonitis, or atypical infection. -Respiratory viral panel negative, CRP within normal limits, thus likely CT scanning's as above is more likely pulmonary edema than infection, continue Zosyn, transition to Augmentin #NSTEMI, #CKD #Anxiety depression ? Started on ACS protocol. Aspirin, Plavix, atorvastatin, heparin drip off. Status post PCI to LAD ? Baseline creatinine 1.1. Today creatinine 1.4. ? Left heart catheter showed Has severe, eccenteric, 60% ostial left main artery stenosis. IVUS had MLA of 6.1mm2. Culprit for NSTEMI and pulmonary edema. LVEDP is elevated at 28mmHg. LAD has mild luminal irregularities. LCx is patent. RCA is patent. Status post PCI to LAD ? Check sputum Gram stain culture ? Protonix 40 IV daily ? Moved to [facility] ? Solu-Medrol has stopped, likely elevation of patient's BMP, stopped ? Patient will need formal PFTs at discharge and establishment with unix administrator. ? Transition to Augmentin DVT prophylaxis: Lovenox Full code Plan monitor creatinine, monitor clinical progress, up out of bed, BNP is elevated, will consider Lasix based on clinical progress Attestations 2 Medical Necessity Statement*: Patient requires hospitalization for shortness of breath, secondary to respiratory failure Diagnoses Pulmonary edema J81.0 Chronicity: acute Elevated d-dimer R79.89 Hypothermia T68.XXXA NSTEMI (non-ST elevated myocardial infarction) I21.4 Anxiety F41.9 CKD (chronic kidney disease) N18.9 New onset of congestive heart failure I50.9 Acute respiratory failure with hypoxia J96.01 Elevated brain natriuretic peptide (BNP) level R79.89
[2024-05-28] MEDS: amoxicillin-clav 875-125 mg Tablet 1 TAB PO (18:09)
[2024-05-28] MEDS: atorvastatin 40 mg Tablet 80 MG PO (20:27)
[2024-05-29] MEDS: ipratropium-albuterol 3 mL Neb INHALATION ×2 (02:42→08:18)
[2024-05-29 02:43] VITALS: PULSE 75; RESP 16; O2SAT 97
[2024-05-29 03:36] LABS: Basophils % 0.5 %; Eosinophils # 0.1 10^3/uL (0.0-0.8); Eosinophils % 1.2 %; Hematocrit 36.1 % (36-47); Lymphocytes # 1.3 10^3/uL (0.8-4.8); Lymphocytes % 16.1 %; Mean Corpuscular HGB Conc 32.1 g/dL (30-55); Mean Corpuscular Hemoglobin 31.1 pg (27-33); Mean Corpuscular Volume 96.8 fl (85-98); Mean Platelet Volume 11.2 fL (7.4-10.4); Monocytes # 0.5 10^3/uL (0.2-0.9); Monocytes % 5.8 %; Neutrophils # 5.96 10^3/uL (1.8-7.7); Neutrophils % 76.1 %; Nucleated Red Blood Cells % 0 %; Platelet Count 179 10^3/cmm (157-399); Red Blood Count 3.73 10^6/uL (3.85-5.65); Red Cell Distribution Width 14.1 % (12.1-15.1); White Blood Count 7.82 10^3/uL (3.29-11.43)
[2024-05-29 03:55] LABS: Alanine Aminotransferase 16 U/L (0-33); Albumin Level 3.3 g/dL (3.5-5.2); Alkaline Phosphatase 90 U/L (35-105); Anion Gap 15.2 (5-19); Aspartate Amino Transferase 35 U/L (0-32); Blood Urea Nitrogen 24 mg/dL (8-23); Carbon Dioxide 23 mmol/L (22-29); Chloride 102 mmol/L (98-107); Creatinine Clr Calc Pharmacy 43.8086; Globulin 2.9 g/dL (1.3-4.6); Glucose 95 mg/dL (65-115); Osmolality Calculated 288 mOsm/kg (285-295); Potassium 3.2 mmol/L (3.5-5.1); Sodium 137 mmol/L (136-145); Total Bilirubin 1.3 mg/dL (0.15-1.2); Total Protein 6.2 g/dL (6.6-8.7)
[2024-05-29 04:00] VITALS: BP 116/63; PULSE 73; RESP 18; TEMP 36.8; O2SAT 92
[2024-05-29 04:05] LABS: NT Pro B Type Natriuretic Pept 20569 pg/mL (0-125)
[2024-05-29 06:00] VITALS: PULSE 83
[2024-05-29] MEDS: enoxaparin 40 mg/0.4 mL Syringe SUBCUT (07:52)
[2024-05-29] MEDS: metoprolol succinate ER (24 HR) 25 mg Tablet PO (07:53)
[2024-05-29] MEDS: amoxicillin-clav 875-125 mg Tablet 1 TAB PO (07:53)
[2024-05-29] MEDS: pantoprazole DR 40 mg Tablet PO (07:53)
[2024-05-29] MEDS: aspirin 81 mg EC Tablet PO (07:53)
[2024-05-29] MEDS: clopidogrel 75 mg Tablet PO (07:53)
[2024-05-29] MEDS: sertraline 100 mg Tablet PO (07:53)
--- NOTE | 2024-05-29 07:59 | P.PN_ITS ---
Subjective 2 Subjective: Patient feels fine this morning. She came in on the of last month with chest discomfort and shortness of breath. She had flash pulmonary edema, respiratory failure, heart failure and a non-ST segment elevation RI with positive troponins. She does have underlying chronic kidney disease. Echo revealed an EF of 50%. Angiography revealed a significant left main lesion which underwent stenting. She has done well since. Her BNP is coming down. Her creatinine peak was 1.4. Today it is 1.2. She has no further chest pain and her respiratory status has improved. Vitals/I&O/Wt Last Vital Signs Temp 98.3 F 05/29/24 04:00 Pulse 83 05/29/24 06:00 Resp 18 05/29/24 04:00 BP 116/63 05/29/24 04:00 Pulse Ox 92 05/29/24 04:00 O2 Del Method Room Air 05/29/24 04:00 O2 Flow Rate 2 05/27/24 01:47 05/28/24 05/29/24 05/29/24 22:59 06:59 14:59 Intake Total 400 / 1928 Output Total 250 / 500 650 / 1150 Balance 150 / 1428 -650 / 778 Weight last 48 hrs Weight 179 lb 14.4 oz Weight 167 lb 3.2 oz Physical Exam 2 Narrative: GENERAL: General she is well at rest HEENT: Exam within normal limits. NECK: Supple without jugular vein distention. The carotid upstroke is normal without bruits. BACK: Exam normal. LUNGS: Clear. HEART: Regular rate and rhythm. ABDOMEN: Benign without organomegaly or tenderness. EXTREMITIES: No edema. The right groin entry site is flat, dry without bleeding or hematoma NEUROLOGIC: Exam normal. SKIN: Unremarkable. Urinary Catheter Management: Colindres: Cath Placed During This Visit: yes Reason for Continuing Indwelling Catheter: Other Urinary Catheter Date of Insertion: 05/26/24 Urinary Catheter Time of Insertion: 04:00 Data 05/29/24 03:11 05/29/24 03:11 A&P Assessment and plan (1) NSTEMI (non-ST elevated myocardial infarction): (2) New onset of congestive heart failure: (3) Elevated brain natriuretic peptide (BNP) level: (4) Non-ST elevated myocardial infarction (non-STEMI): (5) CKD (chronic kidney disease): (6) Pulmonary edema: Qualifiers: Chronicity: acute Qualified Code(s): J81.0 - Acute pulmonary edema (7) Acute respiratory failure with hypoxia: (8) CAD (coronary artery disease): (9) Stented coronary artery: Plan She is doing well. She should be able to go home today. The only addition to her medication should be Plavix 75 mg daily. She was on aspirin, statin and a beta-layton which she should continue. She should be followed up in 7 to 10 days in the office with the nurse practitioner for assessment of her right groin and assessment of her creatinine. No lifting over 10 pounds for 2 days which I have spoken to her about. I answered all of her questions today. Attestations 2 Medical Necessity Statement*: Discharge home today and Moderate Time for a total of 30 minutes, includes placing orders and coordinating care Diagnoses NSTEMI (non-ST elevated myocardial infarction) I21.4 New onset of congestive heart failure I50.9 Elevated brain natriuretic peptide (BNP) level R79.89 CKD (chronic kidney disease) N18.9 Pulmonary edema J81.0 Chronicity: acute Acute respiratory failure with hypoxia J96.01 CAD (coronary artery disease) I25.10 Stented coronary artery Z95.5
[2024-05-29 08:00] VITALS: BP 138/79; PULSE 70; PULSE 94; RESP 15; RESP 16; TEMP 36.6; O2SAT 91; O2SAT 95
[2024-05-29] MEDS: potassium chloride ER 20 mEq Tablet 40 MEQ PO (09:14)
[2024-05-29 11:29] VITALS: BP 138/79; PULSE 70; RESP 16; TEMP 36.6; O2SAT 95
--- NOTE | 2024-05-29 11:37 | PM.DCS ---
Discharge Providers Date of Admission: 05/26/24 04:01 Date of Discharge: May 29, 2024 Attending Provider at Admission: Rajni Mccormick MD Attending Provider at Discharge: Isacc Bedoya MD Primary Care Provider: Arturo Rosa Diagnoses at Discharge Discharge Diagnosis (1) NSTEMI (non-ST elevated myocardial infarction): Status: Acute (2) New onset of congestive heart failure: Status: Acute (3) Elevated brain natriuretic peptide (BNP) level: Status: Acute (4) CKD (chronic kidney disease): Status: Chronic (5) Pulmonary edema: Status: Acute Qualifiers: Chronicity: acute Qualified Code(s): J81.0 - Acute pulmonary edema (6) Acute respiratory failure with hypoxia: Status: Acute (7) CAD (coronary artery disease): Status: Acute (8) Stented coronary artery: Status: Acute Reason for Visit Reason for Visit: SOB Hospital Course Hospital Course Layne Robledo is a 69 year old female With past medical history of anxiety, depression who presented to the hospital with sudden onset shortness of breath today. She says she was playing with her dog at the time. She tried to wait around 40 to 45 minutes to see if it would get better but it did not therefore she called her son. When family came they found her on the floor completely naked with her toes being blue and her saturations being in the 70s. EMS was called immediately. He was given 3 DuoNebs and route and 125 Solu-Medrol and placed on oxygen and brought to the ER. Initially in ER she was requiring 6 L of oxygen and now on 10 L heated high flow, temperature 96.3. Denies any recent ill contacts or recent travel. D-dimer 2.93. CTA chest has ruled out pulmonary embolism.. Initial ABG 7.35/42.9/53.4. Creatinine 1.2. Delta troponin 2 hours 44.86. Initial EKG without any acute ischemic changes. Chest x-ray shows by lateral opacities with possible pneumonia versus pulmonary edema. Blood cultures obtained in ER. Patient denies being formally diagnosed with COPD however is an active smoker. Reports shoulder blade pain on left side. Says this pretty much started in the ambulance. Says she has varicose veins in her legs are sometimes swollen however at this time they are not. Patient is on 8 L high flow nasal cannula at this time. Patient was admitted to [facility] for acute hypoxic respiratory failure, likely secondary to NSTEMI, fluid overload, COPD exacerbation, acute flash pulmonary edema concerns for pneumonia was monitored in the ICU During his hospitalization patient developed NSTEMI, no chest pain complaints had shortness of breath complaints, underwent coronary angiography -Has severe, eccenteric, 60% ostial left main artery stenosis. IVUS had MLA of 6.1mm2. Culprit for NSTEMI and pulmonary edema. LVEDP is elevated at 28mmHg. LAD has mild luminal irregularities. LCx is patent. RCA is patent. -Cardiology had a discussion with patient and family, about PCI versus CABG, risk and benefits discussed, patient's family elected for PCI -Status post PCI to LAD -Monitor 48 hours thereafter remained chest pain-free, no shortness of breath, creatinine has stabilized Patient was discharged on aspirin, Plavix, statin, metoprolol, with a close follow-up with cardiology as outpatient ? Patient was advised if she were to have any recurrent chest pain to go to emergency room During hospital admission, there was concern for acute hypoxic respiratory failure secondary pneumonia, with sepsis, I think her CAT CHEST scan findings were more evidence of fluid overload rather than infection nonetheless she was managed with broad-spectrum antibiotic therapy, remained afebrile, cultures so far unremarkable will be discharged on 3 remaining days of Augmentin. For COPD exacerbation did receive steroids during hospitalization, she has completed her steroid therapy For her flash pulmonary edema, did not require any oxygen, diuresis was held due to concerns for CRISTY and risk of contrast induced nephropathy for her 2 coronary angiography procedures, nonetheless, creatinine has remained stable For her COPD, she was discharged on Advair, butyryl Physical Exam Const: COMMON NORMALS: no acute distress and patient oriented x3 Resp: COMMON NORMALS: normal respiratory effort, No retractions, No use of accessory muscles and clear to auscultation bilaterally AUSCULTATION: clear to auscultation bilaterally Cardio: COMMON NORMALS: regular rate, regular rhythm, S1 normal heart sound present and S2 normal heart sound present RATE: regular rate RHYTHM: regular rhythm HEART SOUNDS: S1 normal heart sound present and S2 normal heart sound present GI: COMMON NORMALS: Normal to inspection, nondistended, normoactive bowel sounds present and non-tender Extremity: COMMON NORMALS: no pedal edema Neuro: COMMON NORMALS: patient oriented x3 Psych: COMMON NORMALS: mental status grossly normal Urinary Catheter Management: Colindres: Cath Placed During This Visit: yes, but has since been removed by the nurse Reason for Continuing Indwelling Catheter: Acute Urinary Retention or Obstruction Urinary Catheter Date of Insertion: 05/26/24 Urinary Catheter Time of Insertion: 04:00 Date Urinary Catheter Removed: 05/29/24 Time Urinary Catheter Discontinued: 08:11 Discharge Data Studies Completed and Pending Completed Studies During Hospitalization Category Date Time Status CT angio chest PE protcl [id number] Stat Cat Scan 05/26/24 00:36 Completed XR chest 1V portable [id number] Routine Exams 05/27/24 07:00 Completed XR chest 1V portable [id number] Stat Exams 05/26/24 00:04 Completed CV. echo complete* [id number] Stat Ultrasound 05/26/24 03:45 Completed Pending at discharge Category Date Time Status [employer]PER[employer] request for service Routine Exams 05/26/24 08:06 Taken [employer] request for service Routine Exams 05/27/24 08:50 Taken Blood Culture Stat Lab 05/26/24 01:50 Results Complete Blood Count w/Auto AM LABS Lab 05/30/24 04:00 Ordered Comprehensive Metabolic Panel AM LABS Lab 05/30/24 04:00 Ordered NT Pro B Type Natriuretic Pept QAM Lab 05/30/24 06:00 Ordered Sputum Culture and Gram Stain Stat Lab 05/26/24 03:46 Uncollected Radiology Impressions Chest CTA 05/26/24 00:36 IMPRESSION: 1. Negative for pulmonary artery embolism. 2. Interstitial edema. 3. Scattered ground-glass airspace opacities could reflect pulmonary edema, nonspecific inflammatory pneumonitis, or atypical infection. Chest X-Ray 05/27/24 07:00 IMPRESSION: 1. Mild cardiomegaly. 2. No acute pulmonary findings. Lung aeration appears to be improved on today's exam when compared to prior exam. Laboratory Results WBC 7.82 10^3/uL (3.29-11.43) 05/29/24 03:11 RBC 3.73 10^6/uL (3.85-5.65) L 05/29/24 03:11 Hgb 11.60 g/dL (11.27-16.99) 05/29/24 03:11 Hct 36.1 % (36-47) 05/29/24 03:11 MCV 96.8 fl (85-98) 05/29/24 03:11 MCH 31.1 pg (27-33) 05/29/24 03:11 MCHC 32.1 g/dL (30-55) 05/29/24 03:11 RDW 14.1 % (12.1-15.1) 05/29/24 03:11 Plt Count 179 10^3/cmm (157-399) 05/29/24 03:11 MPV 11.2 fL (7.4-10.4) H 05/29/24 03:11 Neut % (Auto) 76.1 % 05/29/24 03:11 Lymph % (Auto) 16.1 % 05/29/24 03:11 [place] % (Auto) 5.8 % 05/29/24 03:11 Eos % (Auto) 1.2 % 05/29/24 03:11 Baso % (Auto) 0.5 % 05/29/24 03:11 Neut # (Auto) 5.96 10^3/uL (1.8-7.7) 05/29/24 03:11 Lymph # (Auto) 1.3 10^3/uL (0.8-4.8) 05/29/24 03:11 [place] # (Auto) 0.5 10^3/uL (0.2-0.9) 05/29/24 03:11 Eos # (Auto) 0.1 10^3/uL (0.0-0.8) 05/29/24 03:11 Baso # (Auto) 0.0 10^3/uL (0.0-0.1) 05/29/24 03:11 Nucleated RBC % (auto) 0 % 05/29/24 03:11 Nucleated RBCs # 0.0 /100WBC 05/29/24 03:11 APTT 36.7 SECONDS (23.9-36.7) D 05/27/24 15:38 D-Dimer 2.93 ug/mLFEU (0-0.59) H 05/26/24 00:08 Specimen Type Arterial 05/26/24 00:20 Sample Site Radial, right 05/26/24 00:20 ABG pH 7.35 (7.35-7.45) 05/26/24 00:20 ABG pCO2 42.9 mmHg (35-45) 05/26/24 00:20 ABG pO2 53.4 mmHg (80.0-100.0) L 05/26/24 00:20 ABG HCO3 23.7 mmol/L (22-26) 05/26/24 00:20 ABG O2 Saturation 87.4 05/26/24 00:20 ABG Base Excess -2.0 mmol/L (-2.0-2.0) 05/26/24 00:20 Frank Test Pos 05/26/24 00:20 A-a O2 Gradient 5.7 mmHg (5-10) 05/26/24 00:20 Hematocrit 46.4 % (37-47) 05/26/24 00:20 Hgb O2 Saturation 83.8 % (95-100) L 05/26/24 00:20 Carboxyhemoglobin 3.9 %THgb (0.4-20.1) 05/26/24 00:20 Methemoglobin 0.2 % (0.4-1.5) L 05/26/24 00:20 Total Hemoglobin 15.1 g/dL (12-16) 05/26/24 00:20 Sodium 138.0 mmol/L (131-143) 05/26/24 00:20 Potassium 3.6 mmol/L (3.5-5.0) 05/26/24 00:20 Glucose 171.0 mg/dL (70-115) H 05/26/24 00:20 Ionized Calcium 1.2 mmol/L (1.1-1.4) 05/26/24 00:20 O2 Delivery Device Nc 05/26/24 00:20 O2 Liters/Min 6.0 % 05/26/24 00:20 Coutierier ID [id number] 05/26/24 00:20 Sodium 137 mmol/L (136-145) 05/29/24 03:11 Potassium 3.2 mmol/L (3.5-5.1) L 05/29/24 03:11 Chloride 102 mmol/L (98-107) 05/29/24 03:11 Carbon Dioxide 23 mmol/L (22-29) 05/29/24 03:11 Anion Gap 15.2 (5-19) 05/29/24 03:11 BUN 24 mg/dL (8-23) H 05/29/24 03:11 Creatinine 1.2 mg/dL (0.5-0.9) H 05/29/24 03:11 GFR Calculation Not Reportable 05/29/24 03:11 Glucose 95 mg/dL (65-115) 05/29/24 03:11 Estimat Average Glucose 108 05/26/24 00:08 Hemoglobin A1c 5.4 % (4.0-6.0) 05/26/24 00:08 Calculated Osmolality 288 mOsm/kg (285-295) 05/29/24 03:11 Calcium 9.0 mg/dL (8.5-10.5) 05/29/24 03:11 Phosphorus 2.4 mg/dL (2.5-4.5) L 05/28/24 03:20 Magnesium 2.0 mg/dL (1.7-2.3) 05/28/24 03:20 Total Bilirubin 1.3 mg/dL (0.15-1.2) H 05/29/24 03:11 AST 35 U/L (0-32) H 05/29/24 03:11 ALT 16 U/L (0-33) 05/29/24 03:11 Alkaline Phosphatase 90 U/L (35-105) 05/29/24 03:11 Troponin T Baseline 28 ng/L (0-10) H 05/26/24 00:08 Troponin T 120 Minute 72.86 ng/L (0-10) H 05/26/24 02:05 Delta Troponin T 44.86 ABS# (0-10) H* 05/26/24 02:05 Troponin T Hi Sens 6Hr 150.4 ng/L (0-10) H 05/26/24 06:24 Troponin T Hi Sens 6Hr Delta 122.4 ng/L (0-12) H* 05/26/24 06:24 C-Reactive Protein 8.3 mg/L (0.0-4.9) H 05/26/24 01:56 NT-Pro-B Natriuret Pep 86108 pg/mL (0-125) H 05/29/24 03:11 Total Protein 6.2 g/dL (6.6-8.7) L 05/29/24 03:11 Albumin 3.3 g/dL (3.5-5.2) L 05/29/24 03:11 Globulin 2.9 g/dL (1.3-4.6) 05/29/24 03:11 Adenovirus (PCR) Not detected (NOT DETECT) 05/26/24 00:12 C. pneumoniae DNA (PCR) Not detected (NOT DETECT) 05/26/24 00:12 Coronavirus 229E (PCR) Not detected (NOT DETECT) 05/26/24 00:12 Human Metapneumovir PCR Not detected (NOT DETECT) 05/26/24 00:12 Influenza A (H1) PCR Not detected (NOT DETECT) 05/26/24 00:12 Influ A (H1/09) PCR Not detected (NOT DETECT) 05/26/24 00:12 Influenza A (H3) PCR Not detected (NOT DETECT) 05/26/24 00:12 Influenza Type A (PCR) Not detected (NOT DETECT) 05/26/24 00:12 Influenza Type B (PCR) Not detected (NOT DETECT) 05/26/24 00:12 M. pneumoniae (PCR) Not detected (NOT DETECT) 05/26/24 00:12 Parainfluenza 1 (PCR) Not detected (NOT DETECT) 05/26/24 00:12 Parainfluenza 2 (PCR) Not detected (NOT DETECT) 05/26/24 00:12 Parainfluenza 3 (PCR) Not detected (NOT DETECT) 05/26/24 00:12 Parainfluenza 4 (PCR) Not detected (NOT DETECT) 05/26/24 00:12 RSV Type A (PCR) Not detected (NOT DETECT) 05/26/24 00:12 RSV Type B (PCR) Not detected (NOT DETECT) 05/26/24 00:12 Entero/Rhino (PCR) Not detected (NOT DETECT) 05/26/24 00:12 SARS-CoV-2 (PCR) Not detected (NOT DETECT) 05/26/24 00:12 Vitals Last Vital Signs Temp 97.8 F 05/29/24 11:29 Pulse 70 05/29/24 11:29 Resp 16 05/29/24 11:29 BP 138/79 05/29/24 11:29 Pulse Ox 95 05/29/24 11:29 O2 Del Method Room Air 05/29/24 08:00 O2 Flow Rate 2 05/27/24 01:47 Discharge Plan Discharge Patient Disposition: Home Condition: Stable Prescriptions: New atorvastatin 40 mg Tablet 80 mg PO BEDTIME 30 Days Qty: 60 0RF clopidogrel 75 mg Tablet 75 mg PO DAILY 30 Days Qty: 30 0RF nitroglycerin 0.4 mg Tablet, Sublingual 0.4 mg sublingual Q5M PRN (Reason: Chest Pain) 30 Days Qty: 30 0RF metoprolol succinate 25 mg Tablet Extended Release 24 Hr 25 mg PO DAILY 30 Days Qty: 30 0RF amoxicillin-pot clavulanate 875-125 mg Tablet 1 tab PO BID 3 Days Qty: 6 0RF fluticasone propion-salmeterol [Advair Diskus] 100-50 mcg/dose blister with device 1 inh inhalation BID Qty: 60 0RF Continued sertraline 100 mg tablet 100 mg PO DAILY tramadol 50 mg tablet 50 mg PO Q6H PRN (Reason: Pain) avpoiiyskj-kzmtrtfvyhlux-skpj 50-325-40 mg Tablet 1 tab PO Q4H PRN (Reason: Headache) alprazolam 0.5 mg tablet 0.5 mg PO .UP TO TID PRN (Reason: Anxiety) melatonin 10 mg Tablet 10 mg PO BEDTIME methocarbamol 750 mg Tablet 750 mg PO Q6H PRN (Reason: Muscle Spasm) pantoprazole 40 mg Tablet,Delayed Release (Dr/Ec) 40 mg PO DAILY Premarin 0.625 mg Tablet 0.625 mg PO DAILY albuterol sulfate 90 mcg/actuation HFA aerosol inhaler 2 puff INHALATION Q4H PRN (Reason: Shortness Of Breath) aspirin 81 mg Tablet,Delayed Release (Dr/Ec) 81 mg PO DAILY 30 Days Qty: 30 0RF Discontinued atorvastatin 10 mg tablet 10 mg PO DAILY metoprolol succinate 100 mg tablet extended release 24 hr 100 mg PO DAILY omeprazole 20 mg Capsule,Delayed Release(Dr/Ec) 20 mg PO DAILY Discharge Orders: Discharge Order (Routine); Ordered 05/29/24 Ordered By: Isacc Bedoya Referrals: Mignon Hayes MD [Physician] - 1-3 days Arturo Rosa [Primary Care Provider] - Macy Hernandez FNP [Nurse Practitioner] - 4-7 days (Please follow up with [facility]t in [facility] within 7-10 days. Information has been sent to [facility] regarding this need. If you do not hear from them on Navid, please call [phone] on Friday morning to schedule an appointment. ) Discharge Diet: Cardiac Discharge Activity: Resume usual activity Patient Instructions: Metoprolol (By mouth), Aspirin (By mouth), Clopidogrel (By mouth) (Plavix), Coronary Angioplasty (DC), Coronary Intravascular Stent Placement (DC), Opioid Safety Activity Restrictions/Additional Instructions: - Please take aspirin and Plavix, do not stop taking this medication, if you develop bloody or black stools please go to the emergency room ? Please have your primary care provider recheck your blood pressure, your kidney function, next week ? Please follow-up with Dr. Hayes next week -Please stop smoking Discharge Attestations Time Spent in Discharge Care*: greater than 30 min Time Spent in Smoking Cessation: more than 10 minutes I had an extensive discussion with patient about smoking cessation counseling, she needs to quit smoking, morbidity and mortality discussed, risk of CAD, risk of NSTEMI, risk of respiratory failure, she voiced understanding, all questions answered, we will stop smoking she tells me Quality Metrics Clinical Quality Measures [ No reported AMI, CVA or VTE this stay] Coding Level of Care Code 36019 Diagnoses NSTEMI (non-ST elevated myocardial infarction) I21.4 New onset of congestive heart failure I50.9 Elevated brain natriuretic peptide (BNP) level R79.89 CKD (chronic kidney disease) N18.9 Pulmonary edema J81.0 Chronicity: acute Acute respiratory failure with hypoxia J96.01 CAD (coronary artery disease) I25.10 Stented coronary artery Z95.5
--- NOTE | 2024-05-29 11:43 | PC.NURSE ---
Patient discharged to home. Instruction provided for new medications with changes, follow up needs and post [facility] site care. Patient has multiple access sites which all were c,d,i without s/s of bleeding or hematoma formation. Patient and [id number] verbalized complete understanding. New Rx transmitted to [facility]. Patient taken by wheelchair to private vehicle. Patient denies pain. No distress observed.
== END 2024-05-29 11:43 | disposition home or self-care (01) | DRG 321 ==
LOC: ER 05-26 03:51 → ICU 05-26 04:01 → CSU 05-28 11:38
PROVIDERS: Internal Medicine; Admitting Provider Internal Medicine; Emergency Provider Emergency Medicine; PCP Family Medicine; Visit Provider Family Medicine
PROC: B2111ZZ Fluoroscopy of Multiple Coronary Arteries using Low Osmolar Contrast (ICD-10-PCS; principal; 2024-05-26 10:30)
PROC: B2111ZZ Fluoroscopy of Multiple Coronary Arteries using Low Osmolar Contrast (ICD-10-PCS; 2024-05-26 10:30)
PROC: 027034Z Dilation of Coronary Artery, One Artery with Drug-eluting Intraluminal Device, Percutaneous Approach (ICD-10-PCS; principal; 2024-05-27 10:00)
DX: I21.4 Non-ST elevation (NSTEMI) myocardial infarction (principal); J96.01 Acute respiratory failure with hypoxia; J44.1 Chronic obstructive pulmonary disease with (acute) exacerbation; F41.9 Anxiety disorder, unspecified; F32.A Depression, unspecified; F17.200 Nicotine dependence, unspecified, uncomplicated; I50.9 Heart failure, unspecified; N18.9 Chronic kidney disease, unspecified; R68.0 Hypothermia, not associated with low environmental temperature; Z79.82 Long term (current) use of aspirin; Z11.52 Encounter for screening for COVID-19
CPT/HCPCS: 36415; 36600; 51702; 71045; 71275; 75625; 80048; 80051; 80053; 82330; 82805; 83036; 83735; 83880; 84100; 84484; 85025; 85347; 85378; 85730; 86140; 87040; 87486; 87581; 87633; 92978; 93005; 93306; 93458; 93571; 94640; 94664; 96365; 96366; 96372; 96374; 96375; 99152; 99153; 99285; C1725; C1753; C1769; C1874; C1887; C1894; C9600; J1200; J1644; J1650; J1940; J2060; J2250; J2270; J2543; J3010; J3370; J3490; J7030; J7050; Q9967

== ENCOUNTER → 2024-06-14 12:53 | Outpatient (BNVA) | payer MEDICARE, OTHER, SELFPAY | PROVIDERS: PCP Family Medicine; Visit Provider Nurse Practitioner Family | DX: I25.10 Atherosclerotic heart disease of native coronary artery without angina pectoris (principal); Z87.891 Personal history of nicotine dependence | CPT/HCPCS: 36415; 80048; 99214 ==

== ENCOUNTER → 2024-08-09 14:39 | Outpatient (BNVA) | payer MEDICARE, OTHER, SELFPAY | PROVIDERS: PCP Family Medicine; Visit Provider Internal Medicine | DX: I25.10 Atherosclerotic heart disease of native coronary artery without angina pectoris (principal); F17.200 Nicotine dependence, unspecified, uncomplicated | CPT/HCPCS: 99214 ==

== ENCOUNTER → 2025-02-07 11:20 | Outpatient (BNVA) | payer MEDICARE, OTHER, SELFPAY | PROVIDERS: PCP Family Medicine; Visit Provider Nurse Practitioner Family | DX: I25.10 Atherosclerotic heart disease of native coronary artery without angina pectoris (principal); Z79.01 Long term (current) use of anticoagulants; Z79.82 Long term (current) use of aspirin; F32.A Depression, unspecified; F41.8 Other specified anxiety disorders; Z95.5 Presence of coronary angioplasty implant and graft; F17.200 Nicotine dependence, unspecified, uncomplicated | CPT/HCPCS: 99214 ==

== ENCOUNTER 2025-02-14 22:11 | Inpatient (IN) | payer MEDICARE, OTHER, SELFPAY ==
[2025-02-14 22:12] VITALS: BP 91/63; PULSE 83; RESP 14; TEMP 36.7; O2SAT 93; BMI 24.7
--- NOTE | 2025-02-14 22:18 | XRR_ITS ---
PROCEDURE INFORMATION: Exam: XR Chest Exam date and time: 02/14/2025 10:19 PM Age: 69 years old Clinical indication: Shortness of breath; Additional info: SOB TECHNIQUE: Imaging protocol: Radiologic exam of the chest. Views: 1 view. COMPARISON: CR XR chest 1V portable [id number] 05/27/2024 5:13 AM FINDINGS: Lungs: Prominence of the pulmonary interstitium bilaterally greater the lung bases which also may represent infiltrates. No lobar consolidation. Pleural spaces: Unremarkable. No pleural effusion. No pneumothorax. Heart/Mediastinum: Unremarkable. No cardiomegaly. Bones/joints: Unremarkable. XR/XR chest 1V portable [id number] IMPRESSION: As above.
--- NOTE | 2025-02-14 22:28 | ECG_ITS ---
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 Measurements Intervals [place] Rate: 79 P: 48 VT: 198 QRS: 42 QRSD: 90 T: 76 QT: 428 QTc: 493 Interpretive Statements SINUS RHYTHM LOW QRS VOLTAGE IN PRECORDIAL LEADS [QRS DEFLECTION < 1.0 mV IN CHEST LEADS] MINIMAL ST DEPRESSION [0.025+ mV ST DEPRESSION] Compared to ECG 05/26/2024 09:17:54 Low QRS voltage now present ST (T wave) deviation now present First degree AV block no longer present Myocardial infarct finding no longer present Baseline artifacts, need to repeat Electronically Signed On 02-15-2025 21:22:14 CDT by Leandro Connell M.D. [id number]
--- NOTE | 2025-02-14 22:33 | ED_ITS ---
HPI - SOB/Dyspnea 2 General: Chief Complaint: Shortness of Breath/Dyspnea Stated Complaint: SOB Time Seen by Provider: 02/14/25 22:12 Source: patient and EMS Mode of arrival: EMS Limitations: no limitations History of Present Illness: HPI Narrative: 69-year-old female with a history conges tive heart failure per family has had cough congestion increasing shortness of breath throughout the day patient does not wear oxygen at home EMS has her on 3 L currently denies any fever states she has had some mild chest pains with inspiration. Family at home and given patient 2 nitros Associated symptoms: Reports chest pain; Deny abdominal pain, fever(s), nausea or vomiting Related Data Home Medications ?Medication ?Instructions ?Recorded ?Confirmed alprazolam 0.5 mg tablet 0.5 mg PO .UP TO TID PRN Anx iety 07/30/23 02/07/25 qrvrwdpmgk-knncayefslcvf-djswydfn 1 tab PO Q4H PRN Hea dache 07/30/23 02/07/25 50 mg-325 mg-40 mg tablet melatonin 10 mg tablet 10 mg PO BEDTIME 07/30/23 sertraline 100 mg tablet 100 mg PO DAILY 07/30/23 tramadol 50 mg tablet 50 mg PO Q6H PRN Pain 02/07/25 conjugated estrogens 0.625 mg 0.625 mg PO DAILY 02/07/25 tablet (Premarin) methocarbamol 750 mg tablet 750 mg PO Q6H PRN Muscle S pasm 05/26/24 02/07/25 pantoprazole 40 mg tablet,delayed 40 mg PO DAILY 05/2602/07/25 release Previous Rx's ?Medication ?Instructions ?Recorded aspirin 81 mg tablet,delayed 81 mg PO DAILY 30 days #3 0 tabs 05/29/24 release fluticasone 100 mcg-salmeterol 50 1 inh inhalation BID #60 ea 05/29/24 mcg/dose blistr powdr for inhalation (Advair Diskus) clopidogrel 75 mg tablet 75 mg PO DAILY #90 tabs 07/27 02/17 furosemide 20 mg tablet 20 mg PO DAILY PRN edema #30 tabs 10/18/24 Allergies Allergy/AdvReac Type Severity Reaction Status Date / Time No Known Allergies Allergy Verified 10/14/24 15:01 Review of Systems 2 Const: Denies: fever(s), chills, body aches or change in appetite ENMT: Denies: throat pain or dental pain Card: Reports: chest pain Resp: Reports: dyspnea and non-productive cough GI: Denies: abdominal pain, nausea, vomiting or diarrhea : Denies: dysuria Musc: Denies: neck pain or back pain Skin/Breast: Denies: rash Neuro: Denies: headache(s) PFSH ED 2 PFSH: Medical History CAD (coronary artery disease) Surgical History Stented coronary artery Social History Smoking and tobacco/nicotine status: current every day tobacco/nicotine user Physical Exam 2 Const: COMMON NORMALS: patient oriented x3 HENMT: COMMON NORMALS: normocephalic and atraumatic HEAD & SCALP: n ormocephalic and atraumatic Eye: COMMON NORMALS: conjunctivae normal CONJUNCTIVA: Yes conjunctivae normal Neck/C-Spine: COMMON NORMALS: full ROM and supple Chest: COMMONS NORMALS: normal inspection of the chest Resp: COMMON NORMALS: No retractions and No use of accessory muscles A USCULTATION: rales Cardio: COMMON NORMALS: regular rate, regular rhythm and No murmurs present (Cardio) RATE: regular rate RHYTHM: regular rhythm GI: COMMON NORMALS: Normal to inspection, nondistended, normoactive bowel sounds present, Soft to palpation, non-tender and no masses PALPATION: Yes Soft to palpation Extremity: COMMON NORMALS: normal to inspection and full ROM Neuro: COMMON NORMALS: patient oriented x3, moves all extremities and no focal motor deficits Psych: COMMON NORMALS: mental status grossly normal, Normal thought process present and cooperative THOUGHT PROCESS: Normal thought process present Skin: COMMON NORMALS: no rashes or lesions noted and no wounds GENERAL SKIN EXAM: no rashes or lesions noted Course 2 Vital Signs: Vital signs: Vital Signs Temperature 98.0 F 02/14/25 22:12 Pulse Rate 78 02/14/25 23:22 Respiratory Rate 14 02/14/25 23:22 Blood Pressure 93/55 02/14/25 23:22 Pulse Oximetry 95 02/14/25 23:22 Oxygen Delivery Me thod Nasal Cannula 02/14/25 23:22 Oxygen Flow Rate 4 02/14/25 23:22 MDM - SOB/Dyspnea Medical Decision Making Patient presents here shortness of breath she had cough and congestion as well x-ray shows possible pneumonitis versus pulm edema did start IV antibiotics and blood culture she is requiring 3 L here I spoke to the hospitalist will admit Medical Records I reviewed the patient's medical records. Lab Data I reviewed the patient's lab results. 02/14/25 22:30 02/14/25 22:30 Labs/Radiology: Radiology Impressions Chest X-Ray 02/14/25 22:18 IMPRESSION: As above. Chest CTA 02/14/25 23:13 IMPRESSION: 1. No findings of acute pulmonary embolism. 2. Diffuse pulmonary interlobular septal thickening is most compelling for mild pulmonary edema. Atypical pneumonitis is less likely but not excluded. COMMENTS: The presence of pulmonary emphysema on CT is an independent risk factor for lung cancer. In the absence of a history or active diagnosis of lung cancer, it is recommended that this patient with emphysema be evaluated for enrollment in a low dose CT lung cancer screening program. Laboratory Results WBC 7.94 10^3/uL (3.29-11.43) 02/14/25 22: RBC 3.80 10^6/uL (3.85-5.65) L 02/14/25 22:30 Hgb 11.70 g/dL (11.27-16.99) 02/14/25 22: Hct 36.0 % (36-47) 02/14/25 22: MCV 94.7 fl (85-98) 02/14/25 22:30 MCH 30.8 pg (27-33) 02/14/25 22: MCHC 32.5 g/dL (30-55) 02/14/25 22: RDW 14.7 % (12.1-15.1) 02/14/25 22:30 Plt Count 195 10^3/cmm (157-399) 02/14/25 22: MPV 10.4 fL (7.4-10.4) 02/14/25 22: Neut % (Auto) 74.7 % 02/14/25 22: Lymph % (Auto) 19.3 % 02/14/25: [place] % (Auto) 3.7 % 02/14/25: Eos % (Auto) 1.1 % 02/14/25: Baso % (Auto) 0.8 % 02/14/25: Neut # (Auto) 5.94 10^3/uL (1.8-7.7) 02/14/25: Lymph # (Auto) 1.5 10^3/uL (0.8-4.8) 02/14/25: [place] # (Auto) 0.3 10^3/uL (0.2-0.9) 02/14/25: Eos # (Auto) 0.1 10^3/uL (0.0-0.8) 02/14/25: Baso # (Auto) 0.1 10^3/uL (0.0-0.1) 02/14/25: Nucleated RBC % (auto) 0 % 02/14/25: Nucleated RBCs # 0.0 /100WBC 02/14/25: PT 12.00 SECONDS (12.1-14.9) L 02/14/25: INR 0.83 (0.8-1.2) 02/14/25: Specimen Type Arterial 02/14/25: Sample Site Radial, right 02/14/25: ABG pH 7.38 (7.35-7.45) 02/14/25: ABG pCO2 43.8 mmHg (35-45) 02/14/25: ABG pO2 42.8 mmHg (80.0-100.0) L 02/14/25: ABG HCO3 26.1 mmol/L (22-26) H 02/14/25: ABG Base Excess 0.8 mmol/L (-2.0-2.0) 02/14/25: Frank Test Pos 02/14/25: Hematocrit 37.6 % (37-47) 02/14/25: Hgb O2 Saturation 75.4 % (95-100) L 02/14/25: Carboxyhemoglobin 3.0 %THgb (0.4-20.1) 02/14/25 22: Methemoglobin 1.1 % (0.4-1.5) 02/14/25 22: Total Hemoglobin 12.3 g/dL (12-16) 02/14/25 22:26 O2 Delivery Device Nc 02/14/25 22: O2 Liters/Min 3.0 % 02/14/25 22:26 Production Control Clerk ID [email or web address] 02/14/25 22: Sodium 141 mmol/L (136-145) 02/14/25 22:30 Potassium 3.8 mmol/L (3.5-5.1) 02/14/25 22:30 Chloride 102 mmol/L (98-107) 02/14/25 22: Carbon Dioxide 25 mmol/L (22-29) 02/14/25 22: Anion Gap 17.8 (5-19) 02/14/25 22:30 BUN 16 mg/dL (8-23) 02/14/25 22:30 Creatinine 1.2 mg/dL (0.5-0.9) H 02/14/25 22:30 GFR Calculation Not Reportable 02/14/25 22:30 Glucose 147 mg/dL (65-115) H 02/14/25 22:30 Calculated Osmolality 296 mOsm/kg (285-295) H 02/14/25 22:30 Lactic Acid 2.6 mmol/L (0.5-2.2) H 02/14/25 22:30 Calcium 8.6 mg/dL (8.5-10.5) 02/14/25 22:30 Total Bilirubin 0.4 mg/dL (0.15-1.2) 02/14/25 22:30 AST 22 U/L (0-32) 02/14/25 22:30 ALT 9 U/L (0-33) 02/14/25 22:30 Alkaline Phosphatase 119 U/L (35-105) H 02/14/25 22:30 Troponin T Baseline 27 ng/L (0-10) H 02/14/25 22:30 NT-Pro-B Natriuret Pep 5254 pg/mL (0-125) H 02/14/25 22:30 Total Protein 6.6 g/dL (6.6-8.7) 02/14/25 22:30 Albumin 4.1 g/dL (3.5-5.2) 02/14/25 22:30 Globulin 2.5 g/dL (1.3-4.6) 02/14/25 22:30 All radiology interpretation(s) finalized by discharge EKG Data EKG 1: I personally reviewed and interpreted this EKG as follows: EKG Interpretation Date: 02/14/25 EKG interpretation time: 22:41 Interpretation: nsr hr [address] elevation qrs 90 qtc 463 Discharge Plan Discharge Patient Disposition: Admitted As Inpatient Clinical Impression: Acute respiratory failure with hypoxia, Pneumonia Condition: Stable Prescriptions: No Action clopidogrel 75 mg tablet 75 mg PO DAILY Qty: 90 3RF furosemide 20 mg tablet 20 mg PO DAILY PRN (Reason: edema) Qty: 30 3RF sertraline 100 mg tablet 100 mg PO DAILY tramadol 50 mg tablet 50 mg PO Q6H PRN (Reason: Pain) tkopnzgxlv-gtoutwrvidght-egub 50-325-40 mg Tablet 1 tab PO Q4H PRN (Reason: Headache) alprazolam 0.5 mg tablet 0.5 mg PO .UP TO TID PRN (Reason: Anxiety) melatonin 10 mg Tablet 10 mg PO BEDTIME methocarbamol 750 mg Tablet 750 mg PO Q6H PRN (Reason: Muscle Spasm) pantoprazole 40 mg Tablet,Delayed Release (Dr/Ec) 40 mg PO DAILY Premarin 0.625 mg Tablet 0.625 mg PO DAILY aspirin 81 mg Tablet,Delayed Release (Dr/Ec) 81 mg PO DAILY 30 Days Qty: 30 0RF Advair Diskus 100-50 mcg/dose blister with device 1 inh inhalation BID Qty: 60 0RF Referrals: Arturo Rosa [Primary Care Provider] - Print Language: Serbian Coding Level of Care Code ED Professor Of Political Science for Angeliqueg Dipika
[2025-02-14 22:38] LABS: ABG PCO2 43.8 mmHg (35-45); ABG PH Result 7.38 (7.35-7.45); Arterial Blood Gas Hematocrit 37.6 % (37-47); Base Excess ABG 0.8 mmol/L (-2.0-2.0); Blood Gas Allen Test Pos; Blood Gas Operator Identificat gerca; Blood Gas Sample Site Radial, right; Blood Gas Sample Type Arterial; HCO3 ABG 26.1 mmol/L (22-26); HGB O2 Sat 75.4 % (95-100); Methemoglobin 1.1 % (0.4-1.5); Oxygen Device NC; PO2 ABG 42.8 mmHg (80.0-100.0); Total Hemoglobin 12.3 g/dL (12-16)
[2025-02-14 22:38] LABS: Basophils # 0.1 10^3/uL (0.0-0.1); Basophils % 0.8 %; Eosinophils # 0.1 10^3/uL (0.0-0.8); Eosinophils % 1.1 %; Lymphocytes # 1.5 10^3/uL (0.8-4.8); Lymphocytes % 19.3 %; Mean Corpuscular HGB Conc 32.5 g/dL (30-55); Mean Corpuscular Hemoglobin 30.8 pg (27-33); Mean Corpuscular Volume 94.7 fl (85-98); Mean Platelet Volume 10.4 fL (7.4-10.4); Monocytes # 0.3 10^3/uL (0.2-0.9); Monocytes % 3.7 %; Neutrophils # 5.94 10^3/uL (1.8-7.7); Neutrophils % 74.7 %; Nucleated Red Blood Cells % 0 %; Platelet Count 195 10^3/cmm (157-399); Red Cell Distribution Width 14.7 % (12.1-15.1); White Blood Count 7.94 10^3/uL (3.29-11.43)
[2025-02-14 22:40] VITALS: BP 94/51; PULSE 80; RESP 17; O2SAT 94
[2025-02-14 22:52] LABS: INR 0.83 (0.8-1.2)
[2025-02-14 22:59] LABS: Troponin(5th) Baseline 27 ng/L (0-10)
[2025-02-14 23:08] LABS: Alanine Aminotransferase 9 U/L (0-33); Albumin Level 4.1 g/dL (3.5-5.2); Alkaline Phosphatase 119 U/L (35-105); Aspartate Amino Transferase 22 U/L (0-32); Blood Urea Nitrogen 16 mg/dL (8-23); Calcium 8.6 mg/dL (8.5-10.5); Carbon Dioxide 25 mmol/L (22-29); Chloride 102 mmol/L (98-107); Creatinine Clr Calc Pharmacy 41.5668; Globulin 2.5 g/dL (1.3-4.6); Glucose 147 mg/dL (65-115); NT Pro B Type Natriuretic Pept 5254 pg/mL (0-125); Osmolality Calculated 296 mOsm/kg (285-295); Sodium 141 mmol/L (136-145); Total Bilirubin 0.4 mg/dL (0.15-1.2); Total Protein 6.6 g/dL (6.6-8.7)
[2025-02-14 23:11] LABS: Anion Gap 17.8 (5-19); Potassium 3.8 mmol/L (3.5-5.1)
--- NOTE | 2025-02-14 23:13 | CTR_ITS ---
PROCEDURE INFORMATION: Exam: CTA Chest With Contrast Exam date and time: 02/14/2025 11:26 PM Age: 69 years old Clinical indication: Shortness of breath; Additional info: SOB TECHNIQUE: Imaging protocol: Computed tomographic angiography of the chest with contrast. Exam focused on the arteries. 3D rendering (Not supervised by radiologist): MIP and/or 3D reconstructed images were created by the technologist. Radiation optimization: All CT scans at this facility use at least one of these dose optimization techniques: automated exposure control; mA and/or kV adjustment per patient size (includes targeted exams where dose is matched to clinical indication); or iterative reconstruction. Contrast material: OMNI 350; Contrast volume: 100 ml; Contrast route: INTRAVENOUS (IV); COMPARISON: CT angio chest PE protcl [id number] 05/26/2024 1:04 AM RADIATION DOSE METRICS: Total DLP (mGy-cm): 309.27 FINDINGS: Pulmonary arteries: Normal. No pulmonary emboli. Aorta: There is insufficient contrast in the aortic lumen to exclude acute dissection or penetrating ulcer. No displaced aortic calcific plaque. Thyroid: Homogeneous thyroid. Lungs: Mild to moderate centrilobular emphysema. There is diffuse interlobular septal thickening throughout both lungs. Minor airspace opacity in the right middle lobe and lingula. Pleural spaces: Unremarkable. No pneumothorax. No pleural effusion. Heart: Moderate cardiomegaly. Multifocal papillary muscle calcification noted. Coronary arteries: Extensive coronary artery hyperdensity could be calcification and/or stent material. Lymph nodes: Unremarkable. No enlarged lymph nodes. Bones/joints: Unremarkable. No acute fracture. Soft tissues: Mild fatty atrophy of skeletal muscle. CT/CT angio chest PE protcl [id number] IMPRESSION: 1. No findings of acute pulmonary embolism. 2. Diffuse pulmonary interlobular septal thickening is most compelling for mild pulmonary edema. Atypical pneumonitis is less likely but not excluded. COMMENTS: The presence of pulmonary emphysema on CT is an independent risk factor for lung cancer. In the absence of a history or active diagnosis of lung cancer, it is recommended that this patient with emphysema be evaluated for enrollment in a low dose CT lung cancer screening program.
[2025-02-14] MEDS: sodium chloride 0.9% 500 ML 999 ML IV ×2 (23:17)
[2025-02-14 23:22] VITALS: BP 93/55; PULSE 78; RESP 14; O2SAT 95
[2025-02-14] MEDS: iohexol 350 mg/mL 500 mL Btl (per mL) IV (23:31)
[2025-02-14 23:49] LABS: Lactic Sepsis W/Reflex 2.6 mmol/L (0.5-2.2)
[2025-02-15] VITALS (12 sets, daily range): BP systolic 99–143; BP diastolic 58–82; PULSE 63–91; RESP 12–20; TEMP 36.5–36.9; O2SAT 92–99
--- NOTE | 2025-02-15 00:28 | ECG_ITS ---
[facility] Date: 2025[facility]15 Pat Name: Layne Robledo Department: Room: 262 Gender: Female Jig Hand: : 1955 Requested By: Paula Ibarra Order Number: [id number] Fei MD: Leandro Connell M.D. Measurements Intervals [place] Rate: 72 P: 58 NV: 207 QRS: 35 QRSD: 93 T: 80 QT: 429 QTc: 470 Interpretive Statements SINUS RHYTHM LOW QRS VOLTAGE IN PRECORDIAL LEADS [QRS DEFLECTION < 1.0 mV IN CHEST LEADS] MINIMAL ST DEPRESSION [0.025+ mV ST DEPRESSION] Compared to ECG 02/14/2025 22:41:49 No significant changes Electronically Signed On 02-16-2025 08:47:35 CDT by Leandro Connell M.D. [id number]
--- NOTE | 2025-02-15 00:37 | PM.HP ---
Providers/Chief Complaint Primary Care Provider: Arturo Rosa Chief Complaint: SOB History of Present Illness Layne Robledo is a 69 year old female with a past medical history significant for coronary artery disease, anxiety, depression, and multiple other comorbidities who presents to the emergency department with shortness of breath x 1 day. She endorses associated symptoms of sinus congestion, sinus pressure, headache and cough. Denies fevers or chills. Denies known sick contacts. She has a known history of congestive heart failure. She reports symptoms are similar but not exact to her prior heart failure exacerbation. Reports trace lower extremity edema. Denies nausea or vomiting. Reports oral intake has been at baseline. ED provider reports patient's was found to have low SpO2 in the 80s by EMS. She was brought in on 3 L and required 4 L. Patient denies prior home oxygen needs. Patient's blood pressure was found to be soft. She received 1 L IV fluid bolus. Lactic acid of 2.6. CBC largely unremarkable. Renal function at baseline with creatinine 1.2. BNP 5254 pg/mL, lowest in our EMR for patient. Review of Systems Narrative: A complete review of systems was obtained and is negative except as stated in HPI. Medications/Allergies Home Medications ?Medication ?Instructions ?Recorded ?Confirmed ?Last Taken ?Type alprazolam 0.5 mg tablet 0.5 mg PO .UP TO TID PRN Anxiety 07/30/23 02/07/25 Unknown History clycolatab-bkrzuowvwvcqu-pgwuqxit 1 tab PO Q4H PRN Headache 07/30/23 02/07/25 Unknown History 50 mg-325 mg-40 mg tablet melatonin 10 mg tablet 10 mg PO BEDTIME 07/30/23 02/07/25 05/24/24 History sertraline 100 mg tablet 100 mg PO DAILY 07/30/23 02/07/25 05/25/24 History tramadol 50 mg tablet 50 mg PO Q6H PRN Pain 07/30/23 02/07/25 Unknown History conjugated estrogens 0.625 mg 0.625 mg PO DAILY 05/26/24 02/07/25 05/25/24 History tablet (Premarin) methocarbamol 750 mg tablet 750 mg PO Q6H PRN Muscle Spasm 05/26/24 02/07/25 Unknown History pantoprazole 40 mg tablet,delayed 40 mg PO DAILY 05/26/24 02/07/25 Unknown History release aspirin 81 mg tablet,delayed 81 mg PO DAILY 30 days #30 tabs 05/29/24 02/07/25 Unknown Rx release fluticasone 100 mcg-salmeterol 50 1 inh inhalation BID #60 ea 05/29/24 02/07/25 Unknown Rx mcg/dose blistr powdr for inhalation (Advair Diskus) clopidogrel 75 mg tablet 75 mg PO DAILY #90 tabs 08/09/24 02/07/25 Unknown Rx furosemide 20 mg tablet 20 mg PO DAILY PRN edema #30 tabs 10/18/24 02/07/25 Unknown Rx Allergies Allergy/AdvReac Type Severity Reaction Status Date / Time No Known Allergies Allergy Verified 08/09/24 15:01 PFSH Acute PFSH: Medical History CAD (coronary artery disease) Surgical History Stented coronary artery Social History Smoking and tobacco/nicotine status: current every day tobacco/nicotine user Vitals/I&O/Wt Last Vital Signs Temp 98.0 F 02/14/25 22:12 Pulse 78 02/14/25 23:22 Resp 14 02/14/25 23:22 BP 93/55 02/14/25 23:22 Pulse Ox 95 02/14/25 23:22 O2 Del Method Nasal Cannula 02/14/25 23:22 O2 Flow Rate 4 02/14/25 23:22 Weight last 48 hrs Weight 67.585 kg Physical Exam Narrative: General: Patient is awake. Appears fatigued but pleasant. Head: Normocephalic. Atraumatic. EOM intact. Neck: No JVD. Cardiovascular: RRR. No gallops. No murmurs. Trace pedal edema. Lungs: Air movement is moderate but no overt wheezing. Conversational dyspnea. On supplemental oxygen support. Skin: No jaundice. No rashes. Abdomen: Normal bowel sounds, abdomen soft and nontender. Extremities: No cyanosis or clubbing. Musculoskeletal: No swollen or erythematous joints. Neurological: Moves all 4 extremities. No myoclonus. Data 02/14/25 22:30 02/14/25 22:30 Micro: Microbiology 02/15/25 00:17 Blood Culture - Preliminary Blood SPECIMEN COLLECTED A&P Assessment and plan (1) Acute respiratory failure with hypoxia: Patient requiring 4 L nasal cannula support, baseline is room air Chest CT negative for PE, concerning for pulmonary edema versus atypical infection Limited air movement on exam, suspect underlying COPD Provide supplemental oxygen Encourage pulmonary toilet Continuous pulse oximetry (2) Pneumonia: Status post ceftriaxone/azithromycin in ED Denies fevers, no leukocytosis Notes sinus symptoms, could potentially be source Viral etiology also within ddx Check procal and CRP Continue ceftriaxone/azithromycin for now (3) Elevated troponin: Elevated troponin with positive delta troponin Denies chest pain EKG without STEMI Continuous telemetry monitoring Echo ordered Trend troponins Start therapeutic Lovenox (4) CAD (coronary artery disease): Denies chest pain Trend troponins Telemetry monitoring Continue DAPT Check lipids and A1c in AM Consider statin No BB due to COPD concerns for now; HR 70s Qualifiers: Coronary Disease-Associated Artery/Lesion type: [place] artery [place] vs. transplanted heart: [place] heart Associated angina: without angina Qualified Code(s): I25.10 - Atherosclerotic heart disease of [place] coronary artery without angina pectoris (5) Heart failure with preserved ejection fraction: Acute on chronic CHF preserved ejection fraction exacerbation is within differential TTE (05/26/24) w/ LVEF 50%, grade II/IV diastolic dysfunction, mod LVH, RVSP 46 mmHg NT-proBNP 5254 pg/mL (prev 20K, 29K, 48K, 7K) Strict I&O Daily weight Repeat transthoracic echocardiogram (6) Pulmonary edema: Consider diuresis when hemodynamics allow Qualifiers: Chronicity: acute Qualified Code(s): J81.0 - Acute pulmonary edema (7) COPD (chronic obstructive pulmonary disease): Suspected COPD with exacerbation CT w/ moderate emphasema Start systemic steroids Breathing treatments (8) CKD (chronic kidney disease): Renal function at baseline Renally dose meds Plan DVT ppx: Heparin Code: Full PDMP PDMP Reviewed: Not Reviewed Attestations Medical Necessity Statement*: Pt presents w/ shortness of breath, found to have acute hypoxic respiratory failure, positive delta troponin, suspected pneumonia with copd exacerbation, and lactic acidosis with expected hospitalization not cross two midnights for IV abx, steroids, echo, and further work up. Coding Level of Care Code Acute Code for Chg Fwd Diagnoses Acute respiratory failure with hypoxia J96.01 Pneumonia J18.9 Elevated troponin R79.89 Coronary artery disease involving [place] coronary artery of [place] heart without angina pectoris I25.10 Coronary Disease-Associated Artery/Lesion type: [place] artery [place] vs. transplanted heart: [place] heart Associated angina: without angina Heart failure with preserved ejection fraction I50.30 Pulmonary edema J81.0 Chronicity: acute COPD (chronic obstructive pulmonary disease) J44.9 CKD (chronic kidney disease) N18.9
[2025-02-15] MEDS: cefTRIAXone 1,000 mg SDV 1000 MG IVP (00:46)
[2025-02-15] MEDS: AZITHROMYCIN ADD-Vantage 500 MG in 0.9% NaCl ADD-Vantage 250 ML 250 MG IV (00:49)
[2025-02-15 00:54] LABS: Troponin 5 2HR 62.75 ng/L (0-10)
[2025-02-15 00:56] LABS: Troponin 5 2HR Delta 35.75 ABS# (0-10)
[2025-02-15 01:15] LABS: Reflex Lactate Order REFLEX LACTIC ORDERD
--- NOTE | 2025-02-15 01:38 | USCV_ITS ---
Layne Robledo Age: 69 Gender: F : 1955 Exam Date: 02/15/2025 02:54 Ordering Phys: Jamel Fagan MD Technologist: NICHELLE Exam Location: [facility] [place] Indication: CHF, history of CAD BP: 121 / 68 HR: 70 Rhythm: Sinus Technical Quality: Adequate MEASUREMENTS (Male / Female) Normal Values 2D ECHO LV Diastolic Diameter PLAX 3.1 cm 4.2 - 5.9 / 3.9 - 5.3 cm IVS Diastolic Thickness 1.5 cm 0.6 - 1.0 / 0.6 - 0.9 cm IVS Systolic Thickness 1.9 cm LVPW Diastolic Thickness 1.5 cm 0.6 - 1.0 / 0.6 - 0.9 cm LVPW Systolic Thickness 2.0 cm LVOT Diameter 1.8 cm LV Ejection Fraction 2D Teich 44.7 % LV Ejection Fraction MOD 4C 51.1 % LV Ejection Fraction MOD 2C 57.4 % LV Ejection Fraction 2C AL 53.6 % LA Diameter 5.1 cm LA Sys Volume AL 79.5 cm cubed LA Sys Volume Index AL 44.9 cm cubed/m squared Aorta at Sinotubular Diameter 2.5 cm IVC Diameter 2.2 cm M-MODE LA Ao Ratio MM 1.7 AV Cusp Separation MM 2.0 cm DOPPLER AV Peak Velocity 99.0 cm/s LVOT Peak Velocity 83.0 cm/s AV Area Cont Eq vti 2.3 cm squared AV Area Cont Eq pk 2.3 cm squared MV Peak Velocity 177.0 cm/s MV Area PHT 5.4 cm squared Mitral E to A Ratio 1.0 TV Peak Velocity 312.0 cm/s TV Peak E Velocity 69.0 cm/s PV Peak Velocity 91.0 cm/s FINDINGS Left Ventricle Moderate left ventricular hypertrophy. Grade I/IV diastolic dysfunction (abnormal relaxation filling pattern), normal to mildly elevated filling pressures. Mild hypokinesis of mid and apical anterior and anteroseptal segments. Normal LV size with borderline low ejection fraction of 50 to 55%. Right Ventricle The right ventricle is normal in size and function. Right Atrium The right atrium is normal in size. Left Atrium Mildly increased left atrial size. Mitral Valve Mild mitral valve regurgitation. Aortic Valve Thickened aortic valve. Tricuspid Valve Mild tricuspid valve regurgitation. Pulmonic Valve Pulmonic valve not well visualized. Pericardium No pericardial effusion. Aorta Normal aortic annulus size. IVC Normal inferior vena cava. CONCLUSIONS Normal LV size with borderline low ejection fraction of 50 to 55%. Wall motion normalities as mentioned above. Moderate left ventricular hypertrophy. Type I diastolic dysfunction. Mildly increased left atrial size. Mild mitral valve regurgitation. Thickened aortic valve. Mild tricuspid valve regurgitation. Estimated pulmonary artery peak systolic pressure 63 mmHg- moderate pulmonary hypertension There is no pericardial effusion. Compared to the study from 05/26/2024, there is slight worsening of the pulmonary artery pressure Dr Leandro Connell MD [facility] (Electronically Signed) Final Date: 15 February 2025 18:17 S
[2025-02-15 01:41] LABS: Procalcitonin 0.03 ng/mL (0-0.5)
[2025-02-15] MEDS: enoxaparin 80 mg/0.8 mL Syringe 70 MG SUBCUT ×2 (02:14→14:23)
[2025-02-15] MEDS: benzonatate 100 mg Capsule 200 MG PO (02:14)
[2025-02-15] MEDS: acetaminophen 325 mg Tablet 650 MG PO (02:14)
[2025-02-15] MEDS: methylPREDNISolone sod succ 40 mg/mL INJ IVP ×4 (02:14→19:50)
--- NOTE | 2025-02-15 04:28 | ECG_ITS ---
[facility] [place] Test Date: 2025-02[facility]15 Pat Name: Layne Robledo Department: Room: 112 Gender: Female On Line Csr: : 1955 Requested By: Paula Ibarra Order Number: [id number] Reading MD: Leandro Connell M.D. Measurements Intervals [place] Rate: 66 P: 25 [place]: 205 QRS: 57 QRSD: 84 T: 81 QT: 463 QTc: 487 Interpretive Statements SINUS RHYTHM LOW QRS VOLTAGE IN PRECORDIAL LEADS [QRS DEFLECTION < 1.0 mV IN CHEST LEADS] POSSIBLE LATERAL MYOCARDIAL INFARCTION , OF INDETERMINATE AGE [30 ms Q WAVE IN I/aVL/V5/V6] Compared to ECG 02/15/2025 00:51:17 Myocardial infarct finding now present ST (T wave) deviation no longer present Electronically Signed On 02-16-2025 08:47:27 CDT by Leandro Connell M.D. [email or web address] [id number]
[2025-02-15 04:45] LABS: Basophils # 0.1 10^3/uL (0.0-0.1); Basophils % 0.5 %; Eosinophils % 0.1 %; Hematocrit 32.1 % (36-47); Lymphocytes # 0.6 10^3/uL (0.8-4.8); Lymphocytes % 6.3 %; Mean Corpuscular HGB Conc 32.7 g/dL (30-55); Mean Corpuscular Hemoglobin 31.4 pg (27-33); Mean Corpuscular Volume 96.1 fl (85-98); Mean Platelet Volume 10.5 fL (7.4-10.4); Monocytes # 0.2 10^3/uL (0.2-0.9); Monocytes % 2.4 %; Neutrophils # 9.09 10^3/uL (1.8-7.7); Neutrophils % 90.4 %; Nucleated Red Blood Cells % 0 %; Platelet Count 180 10^3/cmm (157-399); Red Blood Count 3.34 10^6/uL (3.85-5.65); Red Cell Distribution Width 14.6 % (12.1-15.1); White Blood Count 10.05 10^3/uL (3.29-11.43)
[2025-02-15 05:10] LABS: Estmated Average Glucose 103; Hemoglobin A1C 5.2 % (4.0-6.0)
[2025-02-15 05:16] LABS: Anion Gap 14.3 (5-19); Blood Urea Nitrogen 18 mg/dL (8-23); Calcium 8.1 mg/dL (8.5-10.5); Carbon Dioxide 25 mmol/L (22-29); Chloride 106 mmol/L (98-107); Chol HDL Ratio 2.29 mg/dL (0.0-4.40); Cholesterol 158 mg/dL (0-200); Creatinine Clr Calc Pharmacy 47.5628; Glucose 142 mg/dL (65-115); HDL Cholesterol 69 mg/dL (60-100); LDL Cholesterol Calculated 73 mg/dL (50-129); LDL HDL Ratio 1.06 RATIO (0.00-3.22); Osmolality Calculated 296 mOsm/kg (285-295); Potassium 4.3 mmol/L (3.5-5.1); Sodium 141 mmol/L (136-145); Triglycerides 80 mg/dL (0-150); Troponin 5 6HR 169.7 ng/L (0-10); Troponin 5 6HR Delta 142.7 ng/L (0-12)
[2025-02-15] MEDS: clopidogrel 75 mg Tablet PO (08:33)
[2025-02-15] MEDS: aspirin 81 mg EC Tablet PO (08:33)
--- NOTE | 2025-02-15 09:28 | PM.CONSULT ---
Providers/Reason For Consult Consulting Physician/Specialty*: ANDREW Connell MD/cardiology Reason for Consult*: Patient with chest pain and elevated troponin T Requesting Physician: Dr. Mccormick Attending Physician: Rajni Mccormick MD Primary Care Provider: Arturo Rosa History of Present Illness History of Present Illness Layne Robledo is a 69 year old female with a history of atherosclerotic heart disease, is admitted to hospital to the emergency room where she presented with complaints of rather acute onset of shortness of breath. She was found to have features of heart failure and non-ST elevation myocardial infarction. Cardiology consult is requested for further cardiac evaluation recommendations. This patient is known to have atherosclerotic heart diseas and had a PCI of the left main in May of last year when she presented with acute pulmonary edema. She also is known to have chronic kidney disease, COPD, heart failure, anxiety/depressive illness. She apparently has been in her baseline state of health up until yesterday evening when she started having shortness of breath and some tightness/heaviness in the chest. Her symptoms started getting worse. For this reasons her son called the EMS and the patient was brought to the emergency room. She did not have any fever or chills. No severe cough. She has been compliant with medications. She continues to smoke even though she has cut back significantly. She has no history of her diabetes. Has a history of GERD. Her chest x-ray revealed features of atypical pneumonia/pulm edema. The troponin T had a 2-hour delta of 35 and 6-hour delta of 165. Review of Systems Narrative: CONSTITUTIONAL: No fever or chills. EYES: No blurring of vision or other visual disturbances lately. ENT: No hoarseness of voice, auditory disturbances or sore throat. CARDIOVASCULAR: As mentioned above. RESPIRATORY: COPD/shortness of breath GASTROINTESTINAL: No hematemesis or melena. GENITOURINARY: No dysuria or hematuria. INTEGUMENTARY: No skin rashes or history of skin cancer. NEURO: No transient ischemic attacks or amaurosis. PSYCHIATRIC: No history of psychosis or major depression. HEMATOLOGIC: No bleeding disorders or significant anemia. ENDOCRINE: No history of polyuria or polydipsia. MUSCULOSKELETAL: No recent joint pain or swelling. ALLERGY/IMMUNOLOGY: As mentioned above. Medications/Allergies Home Medications ?Medication ?Instructions ?Recorded ?Confirmed ?Last Taken ?Type alprazolam 0.5 mg tablet 0.5 mg PO .UP TO TID PRN Anxiety 07/30/23 02/15/25 02/14/25 History bnsznhaifs-[id number]-[id number] 1 tab PO Q4H PRN Headache 07/30/23 02/15/25 Unknown History 50 mg-325 mg-40 mg tablet melatonin 10 mg tablet 10 mg PO BEDTIME 07/30/23 02/15/25 02/14/25 History sertraline 100 mg tablet 100 mg PO BEDTIME 07/30/23 02/15/25 02/14/25 History tramadol 50 mg tablet 50 mg PO Q6H PRN Pain 07/30/23 02/15/25 02/13/25 History conjugated estrogens 0.625 mg 0.625 mg PO DAILY 05/26/24 02/15/25 02/14/25 History tablet (Premarin) methocarbamol 750 mg tablet 750 mg PO Q6H PRN Muscle Spasm 05/26/24 02/15/25 Unknown History pantoprazole 40 mg tablet,delayed 40 mg PO DAILY 05/26/24 02/15/25 02/14/25 History release furosemide 20 mg tablet 20 mg PO DAILY PRN edema #30 tabs 10/18/24 02/15/25 02/14/25 Rx aspirin 81 mg tablet,delayed 81 mg PO DAILY 30 days #30 tabs 02/17/25 Unknown Rx release atorvastatin 40 mg tablet (Lipitor) 40 mg PO QPM #30 tabs 02/17/25 Unknown Rx clopidogrel 75 mg tablet 75 mg PO DAILY #90 tabs 02/17/25 Unknown Rx Allergies Allergy/AdvReac Type Severity Reaction Status Date / Time No Known Allergies Allergy Verified 08/09/24 15:01 Current Medications Generic Name Dose Route Start Last Admin Trade Name Freq PRN Reason Stop Dose Admin Acetaminophen 650 mg 02/15/25 01:38 02/15/25 02:14 Acetaminophen 325 Mg Tablet PO 650 mg Q6H PRN Administration Mild/Mod Pain Or Temp >/= 101 Aspirin 81 mg 02/15/25 09:00 02/15/25 08:33 Aspirin 81 Mg Ec Tablet PO 81 mg DAILY MELISSA Administration Benzonatate 200 mg 02/15/25 01:38 02/15/25 02:14 Benzonatate 100 Mg Capsule PO 200 mg TID PRN Administration COUGH Clopidogrel Bisulfate 75 mg 02/15/25 09:00 02/15/25 08:33 Clopidogrel 75 Mg Tablet PO 75 mg DAILY MELISSA Administration Enoxaparin Sodium 70 mg 02/15/25 01:30 02/15/25 02:14 Enoxaparin 80 Mg/0.8 Ml Syringe SUBCUT 70 mg Q12H MELISSA Administration Methylprednisolone Sodium Succinate 40 mg 02/15/25 01:38 02/15/25 08:33 Methylprednisolone Sod Succ 40 Mg/Ml Inj IVP 40 mg Q6H MELISSA Administration PFSH Acute PFSH: Medical History CAD (coronary artery disease) Surgical History Stented coronary artery Social History Smoking and tobacco/nicotine status: current every day tobacco/nicotine user Vitals/I&O/Wt Last Vital Signs Temp 97.7 F 02/15/25 07:41 Pulse 68 02/15/25 07:41 Resp 17 02/15/25 07:41 BP 119/68 02/15/25 07:41 Pulse Ox 97 02/15/25 07:41 O2 Del Method Nasal Cannula 02/15/25 07:41 O2 Flow Rate 3 02/15/25 04:25 02/14/25 02/15/25 02/15/25 22:59 06:59 14:59 Intake Total 1350 / 1350 240 / 240 Balance 1350 / 1350 240 / 240 Weight last 48 hrs Weight 165 lb 8 oz Weight 159 lb Weight 149 lb Physical Exam Narrative: GENERAL: The patient is alert and oriented times three. Not in any acute distress. HEENT: No significant pallor, icterus or lymphadenopathy.Oral cavity: There are no mucous membrane lesions. NECK: Trachea appears to be central. No masses noted. No JVD or thyromegaly appreciated. RESPIRATORY: Chest is symmetrical. No intercostals muscle retraction or any accessory muscle activation. There is no chest wall tenderness. Breath sounds are heard bilaterally. No rales or rhonchi heard. No evidence of any consolidation. BREASTS: Deferred. HEART: The heart sounds are normal. No S3 or S4. Short systolic murmur in the lower sternal border. No diastolic murmurs. No pericardial rub ABDOMEN: No vessel pulsations or distention. No tenderness. No organomegaly appreciated. Bowel sounds are normally heard. : Deferred. RECTAL: Deferred. LYMPHATIC: No lymphadenopathy noted in the neck. EXTREMITIES: No edema or cyanosis. No clubbing. MUSCULOSKELETAL: No acute joint deformities or swelling SKIN: There are no significant rashes or ecchymosis NEUROPSYCHIATRIC: The patient is alert and oriented x3. Appears to be in a good mood. No tremors or rigidity noted. Data 02/17/25 02:21 02/17/25 02:21 Other Labs: Laboratory Last Values WBC 10.05 10^3/uL (3.29-11.43) 02/15/25 04:30 RBC 3.34 10^6/uL (3.85-5.65) L 02/15/25 04:30 Hgb 10.50 g/dL (11.27-16.99) L 02/15/25 04:30 Hct 32.1 % (36-47) L 02/15/25 04:30 MCV 96.1 fl (85-98) 02/15/25 04:30 MCH 31.4 pg (27-33) 02/15/25 04:30 MCHC 32.7 g/dL (30-55) 02/15/25 04:30 RDW 14.6 % (12.1-15.1) 02/15/25 04:30 Plt Count 180 10^3/cmm (157-399) 02/15/25 04:30 MPV 10.5 fL (7.4-10.4) H 02/15/25 04:30 Neut % (Auto) 90.4 % 02/15/25 04:30 Lymph % (Auto) 6.3 % 02/15/25 04:30 [place] % (Auto) 2.4 % 02/15/25 04:30 Eos % (Auto) 0.1 % 02/15/25 04:30 Baso % (Auto) 0.5 % 02/15/25 04:30 Neut # (Auto) 9.09 10^3/uL (1.8-7.7) H 02/15/25 04:30 Lymph # (Auto) 0.6 10^3/uL (0.8-4.8) L 02/15/25 04:30 [place] # (Auto) 0.2 10^3/uL (0.2-0.9) 02/15/25 04:30 Eos # (Auto) 0.0 10^3/uL (0.0-0.8) 02/15/25 04:30 Baso # (Auto) 0.1 10^3/uL (0.0-0.1) 02/15/25 04:30 Nucleated RBC % (auto) 0 % 02/15/25 04: Nucleated RBCs # 0.0 /100WBC 02/15/25 04:30 PT 12.00 SECONDS (12.1-14.9) L 02/14/25 22: INR 0.83 (0.8-1.2) 02/14/25 22: Specimen Type Arterial 02/14/25: Sample Site Radial, right 02/14/25: ABG pH 7.38 (7.35-7.45) 02/14/25: ABG pCO2 43.8 mmHg (35-45) 02/14/25: ABG pO2 42.8 mmHg (80.0-100.0) L 02/14/25: ABG HCO3 26.1 mmol/L (22-26) H 02/14/25: ABG Base Excess 0.8 mmol/L (-2.0-2.0) 02/14/25 22: Frank Test Pos 02/14/25 22: Hematocrit 37.6 % (37-47) 02/14/25: Hgb O2 Saturation 75.4 % (95-100) L 02/14/25: Carboxyhemoglobin 3.0 %THgb (0.4-20.1) 02/14/25: Methemoglobin 1.1 % (0.4-1.5) 02/14/25: Total Hemoglobin 12.3 g/dL (12-16) 02/14/25: O2 Delivery Device Nc 02/14/25 22: O2 Liters/Min 3.0 % 02/14/25 22: Community Support Associate ID [email or web address] 02/14/25 22: Sodium 141 mmol/L (136-145) 02/15/25: Potassium 4.3 mmol/L (3.5-5.1) 02/15/25 04:30 Chloride 106 mmol/L (98-107) 02/15/25 04:30 Carbon Dioxide 25 mmol/L (22-29) 02/15/25 04:30 Anion Gap 14.3 (5-19) 02/15/25 04:30 BUN 18 mg/dL (8-23) 02/15/25 04:30 Creatinine 1.1 mg/dL (0.5-0.9) H 02/15/25 04:30 GFR Calculation Not Reportable 02/15/25 04:30 Glucose 142 mg/dL (65-115) H 02/15/25 04:30 Estimat Average Glucose 103 02/15/25 04:30 Hemoglobin A1c 5.2 % (4.0-6.0) 02/15/25 04:30 Calculated Osmolality 296 mOsm/kg (285-295) H 02/15/25 04:30 Lactic Acid 2.6 mmol/L (0.5-2.2) H 02/14/25 22:30 Lactic Acid (Sepsis) 1.0 mmol/L (0.5-2.2) 02/15/25 04:30 Calcium 8.1 mg/dL (8.5-10.5) L 02/15/25 04:30 Magnesium 2.0 mg/dL (1.7-2.3) 02/15/25 04:30 Total Bilirubin 0.4 mg/dL (0.15-1.2) 02/14/25 22:30 AST 22 U/L (0-32) 02/14/25 22:30 ALT 9 U/L (0-33) 02/14/25 22:30 Alkaline Phosphatase 119 U/L (35-105) H 02/14/25 22:30 Troponin T Baseline 27 ng/L (0-10) H 02/14/25 22:30 Troponin T 120 Minute 62.75 ng/L (0-10) H 02/15/25 00:14 Delta Troponin T 35.75 ABS# (0-10) H* 02/15/25 00:14 Troponin T Hi Sens 6Hr 169.7 ng/L (0-10) H 02/15/25 04:30 Troponin T Hi Sens 6Hr Delta 142.7 ng/L (0-12) H* 02/15/25 04:30 C-Reactive Protein 3.0 mg/L (0.0-4.9) 02/15/25 00:14 NT-Pro-B Natriuret Pep 5254 pg/mL (0-125) H 02/14/25 22:30 Total Protein 6.6 g/dL (6.6-8.7) 02/14/25 22:30 Albumin 4.1 g/dL (3.5-5.2) 02/14/25 22:30 Globulin 2.5 g/dL (1.3-4.6) 02/14/25 22:30 Triglycerides 80 mg/dL (0-150) 02/15/25 04:30 Cholesterol 158 mg/dL (0-200) 02/15/25 04:30 LDL Cholesterol, Calc 73 mg/dL (50-129) 02/15/25 04:30 HDL Cholesterol 69 mg/dL (60-100) 02/15/25 04:30 LDL/HDL Ratio 1.06 RATIO (0.00-3.22) 02/15/25 04:30 Cholesterol/HDL Ratio 2.29 mg/dL (0.0-4.40) 02/15/25 04:30 Procalcitonin 0.03 ng/mL (0-0.5) 02/15/25 00:14 Micro: Microbiology 02/15/25 00:14 Blood Culture - Preliminary Blood SPECIMEN COLLECTED 02/15/25 00:17 Blood Culture - Preliminary Blood SPECIMEN COLLECTED Other data: EKG from today Normal sinus rhythm with some nonspecific ST changes in the anterolateral leads. Cardiac colorization May 2024 This is planned PCI of ostial Left main artery. For full diagnositic report, please refer to procedure note from 05/26/2024. * Ostial left main artery has 60-70% stenosis. * LAD has diffuse luminal irreguarities. LCX has luminal irregularities. * RCA not injected. Echocardiogram in April 2024 Moderate left ventricular hypertrophy. Normal left ventricular size with a slightly diminished ejection fraction of 50%.Grade II/IV diastolic dysfunction, moderately elevated filling pressures. Moderatly increased left atrial size. Thickened aortic valve. Thickened aortic valve. Trace tricuspid valve regurgitation. Estimated pulmonary artery peak systolic pressure 46 mmHg. There is no pericardial effusion. No similar previous studies are available for comparison A&P Assessment and plan (1) Elevated troponin: Most likely this patient had a non-ST relation myocardial infarction. The EKG changes are nonspecific. At this point, patient may be treated with heparin, Plavix, aspirin, beta-blockers, and other symptomatic measures. (2) Acute heart failure: Possibly a coronary ischemia causing acute heart failure is a strong consideration. This needs to be further evaluated. In the meanwhile, she will be treated with diuretics and other symptomatic measures. Qualifiers: Heart failure type: unspecified Qualified Code(s): I50.9 - Heart failure, unspecified (3) Atherosclerotic heart disease of [place] coronary artery with other forms of angina pectoris: Patient had a stenting of the left main. She had only mild disease in the circumflex artery, right coronary artery and left anterior descending artery. A repeat angiogram to reevaluate the left main stent and the coronary status would be appropriate. Based on the results of the above tests and the patient's clinical progress, further recommendations will be made. (4) CKD (chronic kidney disease): May continue on the current management. Qualifiers: Chronic kidney disease stage: unspecified stage Qualified Code(s): N18.9 - Chronic kidney disease, unspecified (5) COPD (chronic obstructive pulmonary disease): Patient strongly advised to quit smoking. Cardiovascular implications were discussed. Patient seems understand this well. Qualifiers: COPD type: unspecified COPD Qualified Code(s): J44.9 - Chronic obstructive pulmonary disease, unspecified Plan An echocardiogram be appropriate to evaluate the LV function and rule the other pathology. Patient may be treated with a heparin, beta-lay[place], aspirin, Plavix and other symptomatic measures. After reviewing the above and also based on the patient's clinical progress, further recommendations will be made. Thank for the opportunity eval this patient make these recommendations PDMP PDMP Reviewed: Not Reviewed Consult Attestations Medical Necessity Statement: Patient requires continued hospital stay for close monitoring and further management Coding Level of Care Code 76690 Diagnoses Elevated troponin R79.89 Acute heart failure, unspecified heart failure type I50.9 Heart failure type: unspecified Atherosclerotic heart disease of [place] coronary artery with other forms of angina pectoris I25.118 Chronic kidney disease, unspecified CKD stage N18.9 Chronic kidney disease stage: unspecified stage Chronic obstructive pulmonary disease, unspecified COPD type J44.9 COPD type: unspecified COPD
--- NOTE | 2025-02-15 10:46 | PC.CHAP ---
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 [] Patient/Family/Request visit [] Outpatient visit [] Follow-up visit [] Physician referral [] Code/Alert [x] Routine visit [] Staff referral [] Actively dying [] Patient sleeping [] Family support [] [] Out of room [] Palliative care [] [] Receiving care in room [] Pre-surgical visit [] Trauma [] Long length of stay [] ICU visit [] Other: Relational/Emotional Strength [x] Patient feels connected with others/family/visitors/staff [] Distress [] Loneliness/isolation [] Abandonment Spirituality of Patient [x] Person of Karis [] Attends Druze of their Karis [x] Believes in Prayer [] Reads Bible or Roman Catholic materials [] There are Spiritual issues to be addressed 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 Interventions [x] Prayer [x] Active listening [] Non-anxious presence [x] Spiritual/emotional support [] Crisis/trauma care [] Spiritual counseling [] Bereavement support [] Provided bereavement packet [] Provided Bible/devotional materials [] Provided toy/stuffed animal, coloring book to patient or family member [] Provided Communion [] Anointing/[place] [] Salvation [x] Completed spiritual assessment [] Other: Impact on Illness or Injury [] Angry [] Fearful [] Anxious [] Often cries [] Exhaustion [] Unable to work [] Unable to attend rastafari [] Unable to walk/stand [] Unable to read [] Unable to drive [] Unable to eat/drink [] Unable to sleep [] Unable to be with family [] Patient intubated [] Other: Summary Time spent with patient 5 min x
--- NOTE | 2025-02-15 13:54 | PM.MISC ---
Miscellaneous Note Note: pt seen this am denies cp , sob states breathing has improved cardiology consulted continue nstemi protocol pat will need angiogram npo at midnight today
[2025-02-15] MEDS: sennosides 8.6 mg Tablet 17.2 MG PO (20:37)
[2025-02-15] MEDS: ALPRAZolam 0.5 mg Tablet PO (20:37)
[2025-02-15 22:23] LABS: Bacillus cereus group Not Detected (NOT DETECT); Bacillus subtillis group Not Detected (NOT DETECT); Corynebacterium Not Detected (NOT DETECT); Cutibacterium acnes (P.acnes) Not Detected (NOT DETECT); Enterococcus Not Detected (NOT DETECT); Enterococcus faecalis Not Detected (NOT DETECT); Enterococcus faecium Not Detected (NOT DETECT); Lactobacillus species Not Detected (NOT DETECT); Listeria Not Detected (NOT DETECT); Listeria monocytogenes Not Detected (NOT DETECT); Micrococcus Not Detected (NOT DETECT); Pan Candida Not Detected (NOT DETECT); Pan Gram-Negative Not Detected (NOT DETECT); Staphylococcus epidermidis Detected (NOT DETECT); Staphylococcus lugdunensis Not Detected (NOT DETECT); Staphylococcus species Detected (NOT DETECT); Streptococcus agalactiae Not Detected (NOT DETECT); Streptococcus anginosus group Not Detected (NOT DETECT); Streptococcus pneumoniae Not Detected (NOT DETECT); Streptococcus pyogenes Not Detected (NOT DETECT); Streptococcus species Not Detected (NOT DETECT); mecA Detected (NOT DETECT); mecC Not Detected (NOT DETECT)
[2025-02-16] VITALS (17 sets, daily range): BP systolic 128–157; BP diastolic 72–114; PULSE 76–86; RESP 12–25; TEMP 36.3–36.7; O2SAT 92–98
[2025-02-16] MEDS: AZITHROMYCIN ADD-Vantage 500 MG in 0.9% NaCl ADD-Vantage 250 ML 250 MG IV (01:05)
[2025-02-16] MEDS: cefTRIAXone 1,000 mg SDV 1000 MG IVP (01:06)
[2025-02-16] MEDS: enoxaparin 80 mg/0.8 mL Syringe 70 MG SUBCUT (01:06)
[2025-02-16] MEDS: methylPREDNISolone sod succ 40 mg/mL INJ IVP ×4 (01:06→20:31)
[2025-02-16 06:32] LABS: Basophils % 0.1 %; Hematocrit 33.5 % (36-47); Lymphocytes # 0.6 10^3/uL (0.8-4.8); Lymphocytes % 4.9 %; Mean Corpuscular HGB Conc 32.5 g/dL (30-55); Mean Corpuscular Hemoglobin 31.1 pg (27-33); Mean Corpuscular Volume 95.4 fl (85-98); Mean Platelet Volume 10.9 fL (7.4-10.4); Monocytes # 0.2 10^3/uL (0.2-0.9); Monocytes % 2.1 %; Neutrophils # 10.39 10^3/uL (1.8-7.7); Neutrophils % 91.1 %; Nucleated Red Blood Cells % 0 %; Platelet Count 189 10^3/cmm (157-399); Red Blood Count 3.51 10^6/uL (3.85-5.65); Red Cell Distribution Width 14.6 % (12.1-15.1); White Blood Count 11.41 10^3/uL (3.29-11.43)
[2025-02-16 07:00] LABS: Chloride 104 mmol/L (98-107); Sodium 139 mmol/L (136-145)
[2025-02-16 07:42] LABS: Blood Urea Nitrogen 27 mg/dL (8-23); Calcium 9.3 mg/dL (8.5-10.5); Carbon Dioxide 22 mmol/L (22-29); Creatinine Clr Calc Pharmacy 43.3774; Glucose 155 mg/dL (65-115); Magnesium 2.2 mg/dL (1.7-2.3); Osmolality Calculated 296 mOsm/kg (285-295)
[2025-02-16] MEDS: clopidogrel 75 mg Tablet PO (07:57)
[2025-02-16] MEDS: aspirin 81 mg EC Tablet PO (07:57)
--- NOTE | 2025-02-16 10:28 | XACV_ITS ---
Exam Room: [facility] Ht: 165 cm Wt: 74 kg BSA: 1.86 m2 Gender: Female : 1955 Any Known Allergies: No known allergies Exam Priority: Routine Procedure(s): Procedure Description: Diagnostic procedure Procedure Description: PCI procedure Procedure Description: Coronary IVUS Procedure Description: Drug Eluting Coronary Stent Procedure Description: PTCA Procedure Description: Miscellaneous Procedure Description: ACT Procedure Description: Coronary Angiography Diagnostic Cath Status: Urgent Diagnostic Findings * Left Anterior Descending has mild luminal irregularities. * Circumflex has no significant disease. * Left Main artery has patent prior ostial to mid vessel stent. At distal edge of stent, there is significant hazy 60-70% stenosis, DIEGO: 3 flow. * Right Coronary Artery has mild luminal irregularities. * Coronary angiography shows right dominance. PCI Status: Urgent PCI Indication: NSTE - ACS Interventional Findings * Procedure detail: After diagnostic images were obtained, I had a detailed discussion with patient's family. Patient's daughter mentioned again that patient has refused considering CABG and wants stenting. XB 3.5 guide catheter was used to engage left main artery. Run-through wire was used to cross the stenosis and was put in distal LAD. IVUS was performed to size the vessel. We predilated the stenosis with 4.0 x 12 mm semicompliant balloon. This was followed by predilation with 4.0 x 12 mm NC balloon balloon angioplasty. We then placed a 4.0x15mm Resolute elena YOLA overlapping with proximal left main artery stent and extending into LAD. Additional final angiogram was performed that showed excellent stent expansion: No residual stenosis and DIEGO-3 flow. Final IVUS was also performed. Guidewire and guide catheter were removed. 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 * Left Main to Proximal Left Anterior Descendin% stenosis treated with a AB TREK 4.00X12 RX BALLOON, CHARMAINE DENNIS EUPHORA RX 4.27L94IN BALLOON, and CHARMAINE R ELENA 4.0X15 YOLA. 0% residual stenosis, DIEGO: 3 flow. Conclusions 1. Severe left main artery stenosis s/p PCI with 1 stent. Patient already had made decision she does not want to have CABG. We still confirmed with patient's family again and they confirmed that she only wants stenting. 2. Left Main to Proximal Left Anterior Descending was treated with a Balloon, Balloon, and Drug Eluting Stent. Recommendations * Dual antiplatelet therapy with aspirin and plavix. * High intensity statin therapy. * Outpatient cardiology follow up in 2 weeks. Interventional RX Recommendation: PCI w/o planned CABG Diagnostic RX Recommendation: PCI w/o planned CABG Anticoagulation: Heparin Pressures Phase:Rest AO : 155 / 80 ( 107 ) @ 12:31:00 PM 159 / 110 ( 134 ) @ 12:47:00 PM 140 / 109 ( 125 ) @ 12:49:00 PM 155 / 99 ( 125 ) @ 12:56:00 PM 133 / 112 ( 123 ) @ 1:03:00 PM Clinical Evaluation EBL: 5mL-10mL Procedural Details Procedure Consent Obtained. Admit Source: In Patient. Pre-Procedure Time Out. Identified patient by full name and date of as verbalized by the patient/guarantor. Does the consent match the physician's order: Yes. Accurate & Complete Informed Consent: Yes. Inpatient/Outpatient History & Physical on Chart: Yes. If H&P is completed, is and addenduem needed: No; If yes, is the addendum complete: N/A. Visualize and Verify Site with Patient/Guarantor: N/A. Relevant Radiology Images available: Yes. The risks, benefits, and alternatives of sedation and/or procedure were discussed by physician. The patient agrees to continue. Procedure started. [facility] Clinical Fraility Score: 4: Vulnerable. Preschool Associate Teacher Indications: ACS > 24 hours. Chest Pain Symptom Assessment: Typical Angina Symptoms. Correct patient, site and procedure confirmed by cath team. Current diagnosis: NSTEMI. PERRLA. Strong, equal hand paste mixer bilaterally. Lungs clear x 5 lobes. A 20 gauge IV was started in the left anticubital using aseptic technique. Pre Procedural Pulses: bilateral posterior tibial was Doppled. Pre Procedural Pulses: bilateral dorsalis pedis was Doppled. Oxygen started at 2liters/min via nasal canula. bilateral groins was prepped with chloroprep then draped in the usual sterile fashion. Baseline sample Acquired. HR: 86 BPM. Physician notified. Physician arrived. Physician scrubbed in. Immediate Pre-Procedure Time Out. Correct Patient: Yes; Correct Procedure: Yes; Correct Site: Yes; Correct Patient Position: No; Correct Supplies: Yes; Dried Flammable Prep: Yes; Blood Products Available: Yes;. Lidocaine 1% infiltrated to the right groin. Arterial access obtained with micropuncture set. Needle and wire out. Holding manual pressure to stop bleeding. Arterial access obtained with micropuncture set. A 5 honduran JL4 catheter in over wire. Multiple views taken of left coronary artery. Catheter removed over the standard wire. A 5 honduran JR4 catheter in over wire. Multiple views taken of right coronary artery. Catheter removed over the standard wire. 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 6 honduran XB 3.5 guide catheter was inserted over the wire. Runthrough guidewire was advanced through the guide catheter to lesion in the left main. Guidewire advanced across lesion, wire parked in proximal LAD. Second runthrough wire in through guide catheter, parked in distal LAD. 1st runthrough wire out. IVUS catheter in over runthrough wire. IVUS measurements obtained. IVUS cathteter removed. IVUS catheter in over runthrough wire. IVUS measurements obtained. IVUS cathteter removed. Patient's family updated. AP Pads placed on the patient. ACT drawn. Results 322 seconds. Therapeutic limits - pre-heparin administration 90-150 seconds and monitoring heparin during a vascular procedure >250 seconds. Inflation number : 1 A AB TREK 4.00X12 RX BALLOON was prepped and advanced across the LMCA , then inflated to 8 KEMI for 0:10 seconds. Balloon out. Inflation number : 2 A MDT NC EUPHORA RX [id number] BALLOON was prepped and advanced across the LMCA , then inflated to 12 KEMI for 0:14 seconds. Inflation number: 3 The MDT NC EUPHORA RX [id number] BALLOON was reinflated across the LMCA, to 12 KEMI for 0:10 seconds. Balloon out. IVUS catheter in over runthrough wire. IVUS run performed of left main. IVUS catheter out OTW. Stent inserted to lesion in the distal Left main, unable to cross. Undeployed 4.0 X 15mm stent out otw. 6fr guideliner catheter in over wire. Balloon inserted to lesion in the LMCA. Balloon out. Stent inserted to lesion in the distal LMCA. Inflation Number : 4 A MDT R ELENA 4.0X15 YOLA -Lot Number#[id number] EXP 08-11-2027 was prepped and advanced across the LMCA. The stent was deployed at 12 KEMI for 0:16 seconds. Stent balloon out over wire. Guideliner catheter out OTW. IVUS catheter in over runthrough wire to LMCA. IVUS performed of LMCA. IVUS catheter out OTW. Balloon inserted to lesion in the distal left main. Inflation number: 5 The MDT NC EUPHORA RX 4.24S01SM BALLOON was reinflated across the LMCA, to 12 KEMI for 0:14 seconds. Inflation number: 6 The MDT NC EUPHORA RX [id number] BALLOON was reinflated across the LMCA, to 14 KEMI for 0:13 seconds. Inflation number: 7 The MDT NC EUPHORA RX [id number] BALLOON was reinflated across the LMCA, to 14 KEMI for 0:06 seconds. Balloon out. Results checked. Results checked. Runthrough wire out. ACT drawn. Results 352 seconds. Therapeutic limits - pre-heparin administration 90-150 seconds and monitoring heparin during a vascular procedure >250 seconds. Guide catheter out. A Right femoral angiogram was performed to determine safe placement of closure device. Physician scrubbed out. A Suture was successful obtaining hemostatsis at the Right Femoral artery insertion site. Sheath(s) sutured into position with 2-0 silk and sterile 4x4's and Op-site applied over the site. No oozing or signs and symptoms of hematoma noted. Arterial sheath flushed and connected to tranducer and pressure bag with heparinized saline. Post Procedure: Pulses reassessed and unchanged. PERRLA. Strong, equal hand paste mixer bilaterally. No VTE prophylaxis required. Medication's Wasted: Other = Fentanyl 75mcg, Versed 1mg. Medication's Wasted: Heparin = 2000 units. Total IV fluids: 100 mL. Post-op diagnosis: Severe mid to distal Left main stenosis. Status post PCI placement of 1 YOLA. Complications: None. Estimated blood loss: 5mL-10mL. Responsiveness - Normal response to verbal stimuli; alert and oriented, PERRLA. Airway - Unaffected, no intervention required; spontaneous ventilation. Circulation: W/N/L, pulses unchanged. Nausea/Vomiting: No. Procedure completed. Patient transferred by bed to CPRU. Vital chart was stopped. Access Site Site: Right Femoral artery Sheath Size: 6 Fr Hemostasis Method: Suture Hemostasis Success: Successful Procedure Medications Start: 11:19 AM Stop: : AM Medication: Versed Amount: 1 mg Route: I.V. Start: 11: AM Stop: : AM Medication: Fentanyl Amount: 50 mcg Route: I.V. Start: 11: AM Stop: : AM Medication: Versed Amount: 1 mg Route: I.V. Start: 11: AM Stop: : AM Medication: Fentanyl Amount: 25 mcg Route: I.V. Start: 11:34 AM Stop: 11:34 AM Medication: Heparin Amount: 6000 units Route: I.V. Start: 11:44 AM Stop: 11:44 AM Medication: Fentanyl Amount: 25 mcg Route: I.V. Start: 11:57 AM Stop: 11:57 AM Medication: Heparin Amount: 1000 units Route: I.V. Start: 12:04 PM Stop: 12:04 PM Medication: Versed 1 mg and Fentanyl 25 mcg Amount: 1 Route: I.V. Start: 12:30 PM Stop: 12:30 PM Medication: Plavix Amount: 300 mg Route: P.O. I, the attending physician, have reviewed and verified all procedure medications. Yes, all medications given per verbal order History/Risk Factors Hypertension: No Dyslipidemia: No Peripheral Arterial Disease (PAD): No Myocardial Infarction (VT): Yes Obesity: No Renal Disease: No Tobacco Use: Current/Recent(w/in 1 year) Prior Interventions PCI: Yes CABG: No Valve Surgery: No Date of PCI: 05/27/2024 Report Signatures Finalized by Pasquale Guerra MD on 02/28/2025 12:24 PM
[2025-02-16] MEDS: sodium chloride 0.9% 1,000 ML 50 ML IV (10:36)
[2025-02-16] MEDS: diphenhydrAMINE 50 mg Capsule PO (10:36)
--- NOTE | 2025-02-16 11:20 | P.HPUD_ITS ---
Surgery/Procedure H&P Update DATE OF PROCEDURE: February 16, 2025 DATE H&P PERFORMED: 02/15/25 H&P UPDATE INFORMATION: I have reviewed H&P completed within last 30 days, I have examined patient prior to procedure and No changes to prior documentation PREOP DIAGNOSIS: NSTEMI PRIMARY INDICATION FOR PROCEDURE: NSTEMI PLANNED PROCEDURE: Left heart cath with possible PCI PATIENT REASSESSED PRIOR TO SEDATION, WITH NO CHANGE NOTED: Yes PHYSICAL EXAM: alert, oriented x 3, clear to auscultation bilaterally and reg ular rate & rhythm AIRWAY EVAL/ANESTHESIA PLAN: normal airway, ASA III, Local Anesthesia, Risks, benefits & alternatives of sedation and/or procedure discussed and Patient agre es to continue as planned ADDITIONAL INFORMATION: Moderate sedation
--- NOTE | 2025-02-16 12:35 | PM.PROC ---
Procedure Note: Date of procedure: 02/16/25 Pre-procedure diagnosis: NSTEMI Post-procedure diagnosis: other (Significant mid to distal Left main artery stenosis s/p PCI with 1 stent) Procedure: Patient did not want to have CABG/heart team discussion.Discussed again with patient's daughter post diagnostic images were obtained. Given significant 60-70% stenosis with haziness of left main artery we proceeded with PCI with 1 stent. RCA and left circumflex arteries are patent. Performing Provider: Pasquale Guerra Estimated blood loss (mL): 10 Complications: None Condition: stable Disposition: floor Coding Level of Care Code Acute Code for [facility] Dipika
--- NOTE | 2025-02-16 12:48 | PC.NURSE ---
cpru received pt from photo lab specialist post pci to the left main. pt alert and oriented x4. pt complains of no pain. right femoral access with sheath stitched in place and connected to pressure bag. no hematoma or brusing noted at site. pt educated on restrictions for the next several hours. pt stated understanding. will continue to educated throughout her recovery here in CPRU. pt to be monitored per protocol. awaiting transfer to floor when ready.
--- NOTE | 2025-02-16 14:26 | P.PN_ITS ---
Subjective 2 Subjective: Seen this morning. Planning to go for coronary angiogram around 1130. Does complain of intermittent chest tightness when she tries to lay down. Otherwise denies shortness of breath today. She states her breathing is better. Vitals/I&O/Wt Last Vital Signs Temp 97.7 F 02/16/25 08:00 Pulse 85 02/16/25 13:45 Resp 16 02/16/25 13:45 BP 140/92 02/16/25 13:45 Pulse Ox 97 02/16/25 13:45 O2 Del Method Room Air 02/16/25 13:45 O2 Flow Rate 3 02/15/25 04:25 02/15/25 02/16/25 02/16/25 22:59 06:59 14:59 Intake Total 660 / 1100 250 / 1350 Balance 660 / 1100 250 / 1350 Weight last 48 hrs Weight 74.253 kg Weight 75.07 kg Weight 72.121 kg Weight 67.585 kg Physical Exam 2 Narrative: General: Patient is awake. Appears fatigued but pleasant. Cardiovascular: RRR. No gallops. No murmurs. Trace pedal edema. Lungs: Clear to auscultation bilaterally no wheezes no rhonchi Abdomen: Normal bowel sounds, abdomen soft and nontender. Extremities: No cyanosis or clubbing. Data 02/16/25 06:12 02/16/25 06:12 Micro: Microbiology 02/15/25 00:17 Blood Culture - Preliminary Blood NEGATIVE TO DATE 02/15/25 00:14 Blood Culture - Preliminary Blood Staphylococcus epidermidis A&P Assessment and plan (1) Acute respiratory failure with hypoxia: Patient requiring 4 L nasal cannula support, baseline is room air Chest CT negative for PE, concerning for pulmonary edema versus atypical infection Limited air movement on exam, suspect underlying COPD Provide supplemental oxygen Encourage pulmonary toilet Continuous pulse oximetry (2) Pneumonia: Status post ceftriaxone/azithromycin in ED Denies fevers, no leukocytosis Notes sinus symptoms, could potentially be source Viral etiology also within ddx Check procal and CRP Continue ceftriaxone/azithromycin for now (3) Elevated troponin: Elevated troponin with positive delta troponin Denies chest pain EKG without STEMI Continuous telemetry monitoring Echo ordered Trend troponins Start therapeutic Lovenox (4) CAD (coronary artery disease): Denies chest pain Trend troponins Telemetry monitoring Continue DAPT Check lipids and A1c in AM Consider statin No BB due to COPD concerns for now; HR 70s Qualifiers: Coronary Disease-Associated Artery/Lesion type: [place] artery [place] vs. transplanted heart: [place] heart Associated angina: without angina Q ualified Code(s): I25.10 - Atherosclerotic heart disease of [place] coronary artery without angina pectoris (5) Heart failure with preserved ejection fraction: Acute on chronic CHF preserved ejection fraction exacerbation is within differential TTE (05/26/24) w/ LVEF 50%, grade II/IV diastolic dysfunction, mod LVH, RVSP 46 mmHg NT-proBNP 5254 pg/mL (prev 20K, 29K, 48K, 7K) Strict I&O Daily weight Repeat transthoracic echocardiogram (6) Pulmonary edema: Consider diuresis when hemodynamics allow Qualifiers: Chronicity: acute Qualified Code(s): J81.0 - Acute pulmonary edema (7) COPD (chronic obstructive pulmonary disease): Suspected COPD with exacerbation CT w/ moderate emphasema Start systemic steroids Breathing treatments Qualifiers: COPD type: unspecified COPD Qualified Code(s): J44.9 - Chronic obstructive pulmonary disease, unspecified (8) CKD (chronic kidney disease): Renal function at baseline Renally dose meds Qualifiers: Chronic kidney disease stage: unspecified stage Qualified Code(s): N 18.9 - Chronic kidney disease, unspecified Plan DVT ppx: Heparin Code: Full 02/16/2025 Continue NSTEMI protocol at this time. Continue aspirin Plavix therapeutic Lovenox Cardiology is following. Plan to go for coronary gram at 1130. Patient is at risk for contrast-induced nephropathy as her baseline creatinine is 1.1-1.2. She will need gentle IV hydration and continued monitoring of labs postprocedure. Patient's daughter was updated as well. PDMP PDMP Reviewed: Not Reviewed Attestations 2 Medical Necessity Statement*: NSTEMI protocol, going for coronary angiography today. Diagnoses Acute respiratory failure with hypoxia J96.01 Pneumonia J18.9 Elevated troponin R79.89 Coronary artery disease involving [place] coronary artery of [place] heart without angina pectoris I25.10 Coronary Disease-Associated Artery/Lesion type: [place] artery [place] vs. transplanted heart: [place] heart Associated angina: without angina Heart failure with preserved ejection fraction I50.30 Pulmonary edema J81.0 Chronicity: acute Chronic obstructive pulmonary disease, unspecified COPD type J44.9 COPD type: unspecified COPD Chronic kidney disease, unspecified CKD stage N18.9 Chronic kidney disease stage: unspecified stage
[2025-02-16] MEDS: ALPRAZolam 0.5 mg Tablet PO ×2 (15:09→20:31)
[2025-02-16 15:25] LABS: Partial Thromboplastin Time 172.5 SECONDS (23.9-36.7)
[2025-02-16 16:22] LABS: Partial Thromboplastin Time 46.3 SECONDS (23.9-36.7)
--- NOTE | 2025-02-16 18:20 | PC.NURSE ---
Femoral sheath removal Explained procedure to pt. Pt denies any pain or discomfort. 6 Fr size Femoral sheath removed in right groin, right femoral artery felt and is palpable, manual pressure held for 20 mins. No hematoma,bleeding or swelling noted. Pedal pulses are palpable to the touch. Educated pt on activity restrictions such as bedrest for 6 hrs, no bending or lifting her right hip and leg to avoid complications and to notify nurse MELISSA if any unusual pain,numbness,pressure or swelling or even wetness from bleeding felt in her right groin areas. Pt verbalizes understanding. Call light provided to pt.
[2025-02-16] MEDS: sennosides 8.6 mg Tablet 17.2 MG PO (20:31)
[2025-02-17] VITALS (10 sets, daily range): BP systolic 143–160; BP diastolic 92–112; PULSE 76–90; RESP 10–25; TEMP 36.4–36.8; O2SAT 93–96
[2025-02-17] MEDS: AZITHROMYCIN ADD-Vantage 500 MG in 0.9% NaCl ADD-Vantage 250 ML 250 MG IV (01:09)
[2025-02-17] MEDS: cefTRIAXone 1,000 mg SDV 1000 MG IVP (01:11)
[2025-02-17] MEDS: methylPREDNISolone sod succ 40 mg/mL INJ IVP ×2 (01:11→07:58)
[2025-02-17] MEDS: enoxaparin 80 mg/0.8 mL Syringe 70 MG SUBCUT (01:11)
[2025-02-17 02:27] LABS: Basophils % 0.1 %; Lymphocytes # 0.3 10^3/uL (0.8-4.8); Mean Corpuscular HGB Conc 31.8 g/dL (30-55); Mean Corpuscular Hemoglobin 30.4 pg (27-33); Mean Corpuscular Volume 95.7 fl (85-98); Mean Platelet Volume 10.9 fL (7.4-10.4); Monocytes # 0.4 10^3/uL (0.2-0.9); Monocytes % 3.6 %; Neutrophils # 10.36 10^3/uL (1.8-7.7); Neutrophils % 92.9 %; Nucleated Red Blood Cells % 0 %; Platelet Count 212 10^3/cmm (157-399); Red Blood Count 3.45 10^6/uL (3.85-5.65); Red Cell Distribution Width 14.7 % (12.1-15.1); White Blood Count 11.15 10^3/uL (3.29-11.43)
[2025-02-17 02:45] LABS: Anion Gap 15.9 (5-19); Blood Urea Nitrogen 38 mg/dL (8-23); Calcium 8.8 mg/dL (8.5-10.5); Carbon Dioxide 22 mmol/L (22-29); Chloride 104 mmol/L (98-107); Creatinine Clr Calc Pharmacy 40.0407; Glucose 183 mg/dL (65-115); Magnesium 2.3 mg/dL (1.7-2.3); Osmolality Calculated 300 mOsm/kg (285-295); Potassium 3.9 mmol/L (3.5-5.1); Sodium 138 mmol/L (136-145)
[2025-02-17] MEDS: clopidogrel 75 mg Tablet PO (07:59)
[2025-02-17] MEDS: aspirin 81 mg EC Tablet PO (07:59)
--- NOTE | 2025-02-17 10:27 | P.PN_ITS ---
Subjective 2 Subjective: Patient doing well with no complaints. Denies chest pain or shortness of breath. She is status post stenting to the left main. RCA and left circumflex were found to be patent. Creatinine slightly elevated at 1.3 but overall stable. Vitals/I&O/Wt Last Vital Signs Temp 97.6 F 02/17/25 08:00 Pulse 81 02/17/25 08:00 Resp 16 02/17/25 08:00 BP 143/97 02/17/25 08:00 Pulse Ox 93 02/17/25 08:00 O2 Del Method Room Air 02/17/25 08:00 O2 Flow Rate 3 02/15/25 04:25 02/16/25 02/17/25 02/17/25 22:59 06:59 14:59 Intake Total 236 / 236 1350 / 1586 Output Total 0 / 0 Balance 236 / 236 1350 / 1586 Weight last 48 hrs Weight 166 lb 4.8 oz Weight 163 lb 11.2 oz Physical Exam 2 Narrative: General: No apparent distress, healthy appearing, well nourished HENMT: normoceophalic Muskuloskeletal: Full ROM Respiratory: Normal respiratory effort, clear to auscultation bilaterally throughout all lung temple, no use of accessory muscles Cardio: No JVD, regular rate, regular rhythm, S1 S2 normal, no murmurs, peripheral pulses 2+ radial palpated bilaterally Extremities: Full ROM, normal, normal capillary refill, no cyanosis or edema Neuro: Alert and oriented x4, no focal motor deficits Psych: Affect normal, denies suicidal ideation, mental status grossly normal Skin: No rashes or lesions noted, no wounds Data 02/17/25 02:21 02/17/25 02:21 A&P Assessment and plan (1) Elevated troponin: (2) Acute heart failure: Qualifiers: Heart failure type: unspecified Qualified Code(s): I50.9 - Heart failure, unspecified (3) Atherosclerotic heart disease of [place] coronary artery with other forms of angina pectoris: (4) CKD (chronic kidney disease): Qualifiers: Chronic kidney disease stage: unspecified stage Qualified Code(s): N 18.9 - Chronic kidney disease, unspecified (5) COPD (chronic obstructive pulmonary disease): Qualifiers: COPD type: unspecified COPD Qualified Code(s): J44.9 - Chronic obstructive pulmonary disease, unspecified Plan From cardiology standpoint, patient may be discharged on lasix prn weight gain of 3 pounds in 1 day, will repeat BMP on Friday, patient to continue dual antiplatelet therapy with Plavix and Aspirin, f/u in clinic in 1 week. Will add atorvastatin 40 mg. Patient states she has never taken them before. She was asked to bring in a blood pressure log and heart rate log once she comes into the clinic. PDMP PDMP Reviewed: Not Reviewed Attestations 2 Medical Necessity Statement*: May be discharged from cardiology standpoint. Coding Level of Care Code Acute Code for [facility] Fwd Diagnoses Elevated troponin R79.89 Acute heart failure, unspecified heart failure type I50.9 Heart failure type: unspecified Atherosclerotic heart disease of [place] coronary artery with other forms of angina pectoris I25.118 Chronic kidney disease, unspecified CKD stage N18.9 Chronic kidney disease stage: unspecified stage Chronic obstructive pulmonary disease, unspecified COPD type J44.9 COPD type: unspecified COPD
--- NOTE | 2025-02-17 11:07 | P.DS_ITS ---
Discharge Providers Date of Admission: 02/15/25 09:48 Date of Discharge: February 17, 2025 Attending Provider at Admission: Jamel Fagan MD Attending Provider at Discharge: Rajni Mccormick MD Primary Care Provider: Arturo Rosa Diagnoses at Discharge Discharge Diagnosis (1) Elevated troponin: Status: Acute (2) Acute heart failure: Status: Acute Qualifiers: Heart failure type: unspecified Qualified Code(s): I50.9 - Heart failure, unspecified (3) Atherosclerotic heart disease of [place] coronary artery with other forms of angina pectoris: Status: Acute (4) CKD (chronic kidney disease): Status: Chronic Qualifiers: Chronic kidney disease stage: unspecified stage Qualified Code(s): N18.9 - Chronic kidney disease, unspecified (5) COPD (chronic obstructive pulmonary disease): Status: Acute Qualifiers: COPD type: unspecified COPD Qualified Code(s): J44.9 - Chronic obstructive pulmonary disease, unspecified Reason for Visit Reason for Visit: SOB Hospital Course Hospital Course presented for chest pain ruled in for nstemi taken for angiogram: status post stenting to the left main. RCA and left circumflex were found to be patent From cardiology standpoint, patient may be discharged on lasix prn weight gain of 3 pounds in 1 day, will repeat BMP on Friday, patient to continue dual antiplatelet therapy with Plavix and Aspirin, f/u in clinic in 1 week. Will add atorvastatin 40 mg. Patient states she has never taken them before. She was asked to bring in a blood pressure log and heart rate log once she comes into the clinic. was given ceft + azithro for potential pneumonia. however no fever or leukocytosis, that was discontinued at discharge. dc home in stable condition Physical Exam Narrative: General: Patient is awake. Appears fatigued but pleasant. Cardiovascular: RRR. No gallops. No murmurs. Trace pedal edema. Lungs: Clear to auscultation bilaterally no wheezes no rhonchi Abdomen: Normal bowel sounds, abdomen soft and nontender. Extremities: No cyanosis or clubbing. Discharge Data Studies Completed and Pending Completed Studies During Hospitalization Category Date Time Status CTA chest [CT angio chest PE protcl [id number]] Stat Cat Scan 02/14/25 23:13 Completed XR chest 1V portable [id number] Stat Exams 02/14/25 22:18 Completed CV. 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 Chest CTA 02/14/25 23:13 IMPRESSION: 1. No findings of acute pulmonary embolism. 2. Diffuse pulmonary interlobular septal thickening is most compelling for mild pulmonary edema. Atypical pneumonitis is less likely but not excluded. COMMENTS: The presence of pulmonary emphysema on CT is an independent risk factor for lung cancer. In the absence of a history or active diagnosis of lung cancer, it is recommended that this patient with emphysema be evaluated for enrollment in a low dose CT lung cancer screening program. Laboratory Results WBC 11.15 10^3/uL (3.29-11.43) 02/17/25 02:21 RBC 3.45 10^6/uL (3.85-5.65) L 02/17/25 02:21 Hgb 10.50 g/dL (11.27-16.99) L 02/17/25 02:21 Hct 33.0 % (36-47) L 02/17/25 02:21 MCV 95.7 fl (85-98) 02/17/25 02:21 MCH 30.4 pg (27-33) 02/17/25 02:21 MCHC 31.8 g/dL (30-55) 02/17/25 02:21 RDW 14.7 % (12.1-15.1) 02/17/25 02:21 Plt Count 212 10^3/cmm (157-399) 02/17/25 02:21 MPV 10.9 fL (7.4-10.4) H 02/17/25 02:21 Neut % (Auto) 92.9 % 02/17/25 02:21 Lymph % (Auto) 3.0 % 02/17/25 02:21 [place] % (Auto) 3.6 % 02/17/25 02:21 Eos % (Auto) 0.0 % 02/17/25 02:21 Baso % (Auto) 0.1 % 02/17/25 02:21 Neut # (Auto) 10.36 10^3/uL (1.8-7.7) H 02/17/25 02:21 Lymph # (Auto) 0.3 10^3/uL (0.8-4.8) L 02/17/25 02:21 [place] # (Auto) 0.4 10^3/uL (0.2-0.9) 02/17/25 02:21 Eos # (Auto) 0.0 10^3/uL (0.0-0.8) 02/17/25 02:21 Baso # (Auto) 0.0 10^3/uL (0.0-0.1) 02/17/25 02:21 Nucleated RBC % (auto) 0 % 02/17/25 02: Nucleated RBCs # 0.0 /100WBC 02/17/25 02: PT 12.00 SECONDS (12.1-14.9) L 02/14/25 22:30 INR 0.83 (0.8-1.2) 02/14/25 22:30 APTT 46.3 SECONDS (23.9-36.7) H D 02/16/25 15:57 Specimen Type Arterial 02/14/25 22:26 Sample Site Radial, right 02/14/25 22:26 ABG pH 7.38 (7.35-7.45) 02/14/25 22: ABG pCO2 43.8 mmHg (35-45) 02/14/25 22: ABG pO2 42.8 mmHg (80.0-100.0) L 02/14/25 22: ABG HCO3 26.1 mmol/L (22-26) H 02/14/25 22:26 ABG Base Excess 0.8 mmol/L (-2.0-2.0) 02/14/25 22: Frank Test Pos 02/14/25 22: Hematocrit 37.6 % (37-47) 02/14/25 22: Hgb O2 Saturation 75.4 % (95-100) L 02/14/25 22: Carboxyhemoglobin 3.0 %THgb (0.4-20.1) 02/14/25 22: Methemoglobin 1.1 % (0.4-1.5) 02/14/25 22: Total Hemoglobin 12.3 g/dL (12-16) 02/14/25 22:26 O2 Delivery Device Nc 02/14/25 22:26 O2 Liters/Min 3.0 % 02/14/25 22:26 Brand Marketing Coordinator ID [email or web address] 02/14/25 22:26 Sodium 138 mmol/L (136-145) 02/17/25 02:21 Potassium 3.9 mmol/L (3.5-5.1) 02/17/25 02:21 Chloride 104 mmol/L (98-107) 02/17/25 02:21 Carbon Dioxide 22 mmol/L (22-29) 02/17/25 02:21 Anion Gap 15.9 (5-19) 02/17/25 02:21 BUN 38 mg/dL (8-23) H 02/17/25 02:21 Creatinine 1.3 mg/dL (0.5-0.9) H 02/17/25 02:21 GFR Calculation Not Reportable 02/17/25 02:21 Glucose 183 mg/dL (65-115) H 02/17/25 02:21 Estimat Average Glucose 103 02/15/25 04:30 Hemoglobin A1c 5.2 % (4.0-6.0) 02/15/25 04:30 Calculated Osmolality 300 mOsm/kg (285-295) H 02/17/25 02:21 Lactic Acid 2.6 mmol/L (0.5-2.2) H 02/14/25 22:30 Lactic Acid (Sepsis) 1.0 mmol/L (0.5-2.2) 02/15/25 04:30 Calcium 8.8 mg/dL (8.5-10.5) 02/17/25 02:21 Magnesium 2.3 mg/dL (1.7-2.3) 02/17/25 02:21 Total Bilirubin 0.4 mg/dL (0.15-1.2) 02/14/25 22:30 AST 22 U/L (0-32) 02/14/25 22:30 ALT 9 U/L (0-33) 02/14/25 22:30 Alkaline Phosphatase 119 U/L (35-105) H 02/14/25 22:30 Troponin T Baseline 27 ng/L (0-10) H 02/14/25 22:30 Troponin T 120 Minute 62.75 ng/L (0-10) H 02/15/25 00:14 Delta Troponin T 35.75 ABS# (0-10) H* 02/15/25 00:14 Troponin T Hi Sens 6Hr 169.7 ng/L (0-10) H 02/15/25 04:30 Troponin T Hi Sens 6Hr Delta 142.7 ng/L (0-12) H* 02/15/25 04:30 C-Reactive Protein 3.0 mg/L (0.0-4.9) 02/15/25 00:14 NT-Pro-B Natriuret Pep 5254 pg/mL (0-125) H 02/14/25 22:30 Total Protein 6.6 g/dL (6.6-8.7) 02/14/25 22:30 Albumin 4.1 g/dL (3.5-5.2) 02/14/25 22:30 Globulin 2.5 g/dL (1.3-4.6) 02/14/25 22:30 Triglycerides 80 mg/dL (0-150) 02/15/25 04:30 Cholesterol 158 mg/dL (0-200) 02/15/25 04:30 LDL Cholesterol, Calc 73 mg/dL (50-129) 02/15/25 04:30 HDL Cholesterol 69 mg/dL (60-100) 02/15/25 04:30 LDL/HDL Ratio 1.06 RATIO (0.00-3.22) 02/15/25 04:30 Cholesterol/HDL Ratio 2.29 mg/dL (0.0-4.40) 02/15/25 04:30 Procalcitonin 0.03 ng/mL (0-0.5) 02/15/25 00:14 Vitals Last Vital Signs Temp 97.6 F 02/17/25 08:00 Pulse 81 02/17/25 08:00 Resp 16 02/17/25 08:00 BP 143/97 02/17/25 08:00 Pulse Ox 93 02/17/25 08:00 O2 Del Method Room Air 02/17/25 08:00 O2 Flow Rate 3 02/15/25 04:25 Discharge Plan Discharge Patient Disposition: Home Condition: Stable Prescriptions: New atorvastatin [Lipitor] 40 mg tablet 40 mg PO QPM Qty: 30 0RF Continued furosemide 20 mg tablet 20 mg PO DAILY PRN (Reason: edema) Qty: 30 3RF sertraline 100 mg tablet 100 mg PO BEDTIME tramadol 50 mg tablet 50 mg PO Q6H PRN (Reason: Pain) ptamcgvned-abveybkhrrabj-ysuu 50-325-40 mg Tablet 1 tab PO Q4H PRN (Reason: Headache) alprazolam 0.5 mg tablet 0.5 mg PO .UP TO TID PRN (Reason: Anxiety) melatonin 10 mg Tablet 10 mg PO BEDTIME methocarbamol 750 mg Tablet 750 mg PO Q6H PRN (Reason: Muscle Spasm) pantoprazole 40 mg Tablet,Delayed Release (Dr/Ec) 40 mg PO DAILY Premarin 0.625 mg Tablet 0.625 mg PO DAILY clopidogrel 75 mg tablet 75 mg PO DAILY Qty: 90 3RF aspirin 81 mg Tablet,Delayed Release (Dr/Ec) 81 mg PO DAILY 30 Days Qty: 30 0RF Discharge Orders: Discharge Order (Routine); Ordered 02/17/25 Ordered By: Rajni Mccormick Other Ambulatory Orders: Basic Metabolic Panel (Routine) Timeframe: 3 Days Facility: [facility] - Location: Lab - Main Lab Ordered By: Lily Carrasco Referrals: Arturo Rosa [Primary Care Provider, Family Practice] - 02/24/25 1:30 pm Macy Hernandez FNP [Nurse Practitioner, Cardiology] - 03/03/25 1:00 pm Discharge Diet: Cardiac Discharge Activity: Limit activity as instructed Patient Instructions: Prednisone (By mouth), Amoxicillin (By mouth) (Amoxicot, Amoxil, Amoxil Pediatric, Trimox,..., Atorvastatin (By mouth), Coronary Angioplasty (DC), CHF Stoplight, COPD Stoplight Discharge Attestations Time Spent in Discharge Care*: less than 30 min Quality Metrics Clinical Quality Measures [ No reported AMI, CVA or VTE this stay] Coding Level of Care Code 88145 Total time (in minutes) for Discharge: 25 Diagnoses Elevated troponin R79.89 Acute heart failure, unspecified heart failure type I50.9 Heart failure type: unspecified Atherosclerotic heart disease of [place] coronary artery with other forms of angina pectoris I25.118 Chronic kidney disease, unspecified CKD stage N18.9 Chronic kidney disease stage: unspecified stage Chronic obstructive pulmonary disease, unspecified COPD type J44.9 COPD type: unspecified COPD
== END 2025-02-17 12:15 | disposition home or self-care (01) | DRG 321 ==
LOC: ER 02-15 00:39 → MEDSURG 02-15 00:47 → CSU 02-15 01:27
PROVIDERS: Internal Medicine; Admitting Provider Internal Medicine; Emergency Provider Emergency Medicine; PCP Family Medicine; Visit Provider Internal Medicine
PROC: 027034Z Dilation of Coronary Artery, One Artery with Drug-eluting Intraluminal Device, Percutaneous Approach (ICD-10-PCS; principal; 2025-02-16 09:45)
PROC: 027034Z Dilation of Coronary Artery, One Artery with Drug-eluting Intraluminal Device, Percutaneous Approach (ICD-10-PCS; 2025-02-16 09:45)
DX: I21.4 Non-ST elevation (NSTEMI) myocardial infarction (principal); I50.33 Acute on chronic diastolic (congestive) heart failure; J18.9 Pneumonia, unspecified organism; J96.01 Acute respiratory failure with hypoxia; J44.1 Chronic obstructive pulmonary disease with (acute) exacerbation; J44.0 Chronic obstructive pulmonary disease with (acute) lower respiratory infection; E87.20 Acidosis, unspecified; I25.10 Atherosclerotic heart disease of native coronary artery without angina pectoris; N18.9 Chronic kidney disease, unspecified; F41.9 Anxiety disorder, unspecified; F32.A Depression, unspecified; F17.210 Nicotine dependence, cigarettes, uncomplicated; Z79.02 Long term (current) use of antithrombotics/antiplatelets; Z79.82 Long term (current) use of aspirin; Z79.891 Long term (current) use of opiate analgesic; Z95.5 Presence of coronary angioplasty implant and graft
CPT/HCPCS: 36415; 36600; 71045; 71275; 80048; 80053; 80061; 82805; 83036; 83605; 83735; 83880; 84145; 84484; 85025; 85347; 85610; 85730; 86140; 87040; 87150; 87186; 92978; 93005; 93306; 93454; 94664; 96365; 96372; 96374; 96375; 96376; 99152; 99153; 99285; C1725; C1753; C1769; C1874; C1887; C1894; C9600; G0378; J0456; J0696; J1644; J1650; J2250; J2919; J3010; J7030; J7040; J7050; J9999; Q0163; Q9967

== ENCOUNTER → 2025-03-03 12:38 | Outpatient (BNVA) | payer MEDICARE, OTHER, SELFPAY | PROVIDERS: PCP Family Medicine; Referring Provider Internal Medicine; Visit Provider Nurse Practitioner Family | DX: I25.10 Atherosclerotic heart disease of native coronary artery without angina pectoris (principal); Z95.5 Presence of coronary angioplasty implant and graft; Z87.891 Personal history of nicotine dependence | CPT/HCPCS: 36415; 80053; 82252; 85025; 99213 ==

== ENCOUNTER 2025-05-16 11:16 | Emergency (ER) | payer MEDICARE, OTHER, SELFPAY ==
--- OUTSIDE RECORDS SUMMARY | 2025-05-16 11:22 | XMS_ITS | Encounter Summary ---
Author Organization [facility] Address [address] [place] [address] Care Team Providers Care Barratte Operator Name Role Phone Delbert Rosa MD Primary Care Provider Encounter Details Date Type Department Care Team (Latest Contact Info) Description 02/25/2005 Outpatient Historical [facility] [place] [address] [place] [phone] Eliceo Mcallister MD [address] [place] [phone] CELLULITIS NOS (Primary Dx) Social History Tobacco Use Types Packs/Day Years Used Date Smoking Tobacco: Never Assessed Comments Unknown Sex and Gender Information Value Date Recorded Sex Assigned at Not on file 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
--- OUTSIDE RECORDS SUMMARY | 2025-05-16 11:22 | XMS_ITS | Encounter Summary ---
Author Organization [facility] Address [address] [place] [address] Care Team Providers Care Stock Room Manager Name Role Phone Delbert Rosa MD Primary Care Provider Encounter Details Date Type Department Care Team (Latest Contact Info) Description 05/14/2004 Outpatient Historical [facility] [place] [place] [address] [place] [phone] Eliceo Mcallister MD [address] [place] [phone] DERMATITIS NOS (Primary Dx) Social History Tobacco Use Types Packs/Day Years Used Date Smoking Tobacco: Never Assessed Comments Unknown Sex and Gender Information Value Date Recorded Sex Assigned at Not on file 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
--- OUTSIDE RECORDS SUMMARY | 2025-05-16 11:22 | XMS_ITS | Encounter Summary ---
Author Organization [facility] Address [address] [place] [address] Care Team Providers Care Pvc Loader Name Role Phone Delbert Rosa MD Primary Care Provider Encounter Details Date Type Department Care Team (Latest Contact Info) Description 01/10/2004 Outpatient Historical [facility] [place] [address] [place] [phone] Eliceo Mcallister MD [address] [place] [phone] TRIGEMINAL NEURALGIA (Primary Dx) Social History Tobacco Use Types Packs/Day Years Used Date Smoking Tobacco: Never Assessed Comments Unknown Sex and Gender Information Value Date Recorded Sex Assigned at Not on file 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
--- OUTSIDE RECORDS SUMMARY | 2025-05-16 11:22 | XMS_ITS | Clinical Summary ---
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 Gender Identity Not on file Sexual Orientation Not on file Plan of Treatment Health Maintenance Due Date Last Done Comments DTAP/TDAP/TD VACCINES (1 - Tdap) 1972 BREAST CANCER SCREENING 1993 COLORECTAL SCREENING 1998 Colorectal Cancer Screening 1998 FIT-DNA Q 3 years 1998 FIT/FOBT Q 1 year 1998 Flex Sig/CT Colonography Q 5 years 1998 PNEUMOCOCCAL VACCINE 50+ YEARS (1 of 1 - PCV) 03/11/20 03 ZOSTER VACCINE (1 of 2) 2003 OSTEOPOROSIS SCREENING 2018 INFLUENZA VACCINE (#1) 2025 RSV VACCINE (60+ or ) (1 - 1-dose 75+ series) 2028 Care Teams Copy Clerk Relationship Specialty Start Date End Date Delbert Rosa MD [address] [place] [address] PCP - General Family Practice 04/07/14
--- OUTSIDE RECORDS SUMMARY | 2025-05-16 11:22 | XMS_ITS | Clinical Summary ---
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
--- OUTSIDE RECORDS SUMMARY | 2025-05-16 11:22 | XMS_ITS | Encounter Summary ---
Author Organization [facility] Address [address] [place] [address] Care Team Providers Care Chief Clerk Name Role Phone Delbert Rosa MD Primary Care Provider Encounter Details Date Type Department Care Team (Late st Contact Info) Description 04/07/2014 Ancillary Orders [facility] Admitting [address] [place] [address] Queenie Mcarthur MD [address] [facility] [address] [place] [address] Degenerative disc disease (Primary Dx) Social History Tobacco Use Types Packs/Day Years Used Date Smoking Tobacco: Never Assessed Comments Unknown Sex and Gender Information Value Date Recorded Sex Assigned at Not on file 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 There are metallic markers at the disc level noted at L5-S1. There are no previous studies for comparison. Vertebral body and disc space heights are maintained and no loss of alignment is seen. IMPRESSION 1. postoperative changes at L5-S1 2. no complication or acute changes seen Procedure Note Guanako Bush MD - 04/07/2014 PROCEDURE XR LUMBAR SPINE, three views 07 April 2014 DESCRIPTION AP and lateral lumbar spine views and collimated lateral L5-S1 projection show pedicle screws and longitudinal bars at L5 and S1. There are metallic markers at the disc level noted at L5-S1. There are no previous studies for comparison. Vertebral body and disc space heights are maintained and no loss of alignment is seen. IMPRESSION 1. postoperative changes at L5-S1 2. no complication or acute changes seen us Queenie Mcarthur MD DIAGNOSTIC IMAGING ORDERABLES Fi nal Result documented in this encounter Visit Diagnoses Diagnosis Degenerative disc disease- Primary Degeneration of intervertebral disc, site unspecified Degenerative disc disease Degeneration of intervertebral disc, site unspecified documented in this encounter Care Teams Chief Clerk Relationship Specialty Start Date End Date Delbert Rosa MD [address] [place] [address] [place] [address] PCP - General Family Practice 04/07/14 documented as of this encounter
--- OUTSIDE RECORDS SUMMARY | 2025-05-16 11:22 | XMS_ITS | Encounter Summary ---
Author Organization [facility] Address [address] [place] [address] Care Team Providers Care Bobbin Winder Name Role Phone Delbert Rosa MD Primary Care Provider [phone] Encounter Details Date Type Department Care Team (Latest Contact Info) Description 03/29/2004 Outpatient Historical [facility] [place] [address] [place] [phone] Eliceo Mcallister MD [address] [place] [phone] HEADACHE (Primary Dx) Social History Tobacco Use Types Packs/Day Years Used Date Smoking Tobacco: Never Assessed Comments Unknown Sex and Gender Information Value Date Recorded Sex Assigned at Not on file 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
[2025-05-16 11:42] VITALS: BP 164/80; PULSE 57; RESP 16; TEMP 36.7; O2SAT 97; BMI 24.1
[2025-05-16 11:59] VITALS: BP 151/108; O2SAT 98
--- NOTE | 2025-05-16 12:03 | W.ED.FALL ---
HPI - Fall General: Chief Complaint: Fall Stated Complaint: fall, head lac Time Seen by Provider: 05/16/25 11:54 Source: patient Mode of arrival: wheelchair Limitations: no limitations History of Present Illness: 70-year-old female who presents to the ED after a fall earlier this morning. Patient reports of head pain, facial pain, neck pain, scalp laceration, and skin tears to her left elbow. She states that she was riding her lawnmower this morning and got off of it to put something on the back of the mower when she fell forward and hit her face on the ground. States she tripped on something. Currently she has a c-collar on. She is on Plavix and aspirin 81 mg. Denies any back pain or pain anywhere else. No other complaints at this time. Believes her tetanus is UTD. complaint: fall Onset (ago): hour(s) Fall from: standing Fall witnessed: no Place fall occurred: home Loss of consciousness: None Prolonged down time: no Symptoms prior to fall: none Context: tripped/slipped Location of injury: head, neck and other (left arm) Associated symptoms-after fall: Reports headache(s) and neck pain; Denies abdominal pain, chest pain, difficulty walking, hematuria or lightheadedness Related Data Home Medications ?Medication ?Instructions ?Recorded ?Confirmed alprazolam 0.5 mg tablet 0.5 mg PO .UP TO TID PRN Anxiety 07/30/23 03/03/25 [id number]-jpnkkysogmvag-tcnpswen 1 tab PO Q4H PRN Headache 07/30/23 03/03/25 50 mg-325 mg-40 mg tablet melatonin 10 mg tablet 10 mg PO BEDTIME 07/30/23 03/03/25 sertraline 100 mg tablet 100 mg PO BEDTIME 07/30/23 03/03/25 tramadol 50 mg tablet 50 mg PO Q6H PRN Pain 07/30/23 03/03/25 conjugated estrogens 0.625 mg 0.625 mg PO DAILY 05/26/24 03/03/25 tablet (Premarin) methocarbamol 750 mg tablet 750 mg PO Q6H PRN Muscle Spasm 05/26/24 03/03/25 pantoprazole 40 mg tablet,delayed 40 mg PO DAILY 05/26/24 03/03/25 release Previous Rx's ?Medication ?Instructions ?Recorded aspirin 81 mg tablet,delayed 81 mg PO DAILY 30 days #30 tabs 02/17/25 release clopidogrel 75 mg tablet 75 mg PO DAILY #90 tabs 02/17/25 atorvastatin 40 mg tablet (Lipitor) 40 mg PO QPM #30 tabs 03/03/25 furosemide 20 mg tablet See Rx Instructions .Route 03/04/25 .COMPLEX #30 tabs Allergies Allergy/AdvReac Type Severity Reaction Status Date / Time No Known Allergies Allergy Verified 03/03/25 12:56 Review of Systems Eyes: Denies: change in vision, blurry vision, photophobia, eye discharge, floaters or seeing flashes ENMT: Denies: throat pain, odynophagia, ear or mastoid pain, ear discharge, nasal discharge, epistaxis or sinus pain Card: Denies: chest pain, palpitations, lightheadedness, syncope or pre-syncope Resp: Denies: dyspnea or pain on inspiration GI: Denies: abdominal pain : Denies: flank pain or hematuria Musc: Reports: neck pain and joint pain (mild L elbow); Denies: back pain or joint swelling Skin/Breast: Reports: other (skin tears and laceration) Neuro: Reports: headache(s); Denies: numbness in extremities, weakness in extremities, sensory changes, difficulty walking or dizziness PFSH ED PFSH: Medical History CAD (coronary artery disease) Surgical History Stented coronary artery Social History Smoking and tobacco/nicotine status: former use of tobacco/nicotine Physical Exam Const: COMMON NORMALS: no acute distress, average body habitus, patient oriented x3, no limitations, healthy appearing, alert and well nourished GENERAL APPEARANCE: cooperative ORIENTATION/CONSCIOUSNESS: Yes awake, Yes oriented to person, Yes oriented to place and Yes oriented to time HENMT: HEAD & SCALP: contusion, laceration (left scalp) and scalp tenderness FACE & SINUS: ecchymosis (nose) NOSE: Other nasal findings present (nasal bone tenderness and external nose ecchymosis) MOUTH: Normal oral and palatal mucosa present, lip normal, tongue normal and Normal salivary glands and ducts present Neck/C-Spine: GENERAL: Yes other (c-spine collar in place) CERVICAL SPINE: Yes Cervical spine tenderness OTHER: c-collar not removed for ROM testing Chest: COMMONS NORMALS: normal inspection of the chest and normal palpation of entire chest wall Resp: COMMON NORMALS: normal respiratory effort and clear to auscultation bilaterally AUSCULTATION: clear to auscultation bilaterally Cardio: COMMON NORMALS: regular rate and regular rhythm RATE: regular rate RHYTHM: regular rhythm Back/Pelvis: COMMON NORMALS: thoracic and lumbar spine normal to inspection, no thoracic nor lumbar tenderness, thoraco-lumbar ROM normal and straight leg raise negative bilaterally Extremity: COMMON NORMALS: full ROM GENERAL: Yes normal exam except as noted OTHER: minor skin tear L elbow-full ROM Neuro: SAM COMA SCALE: document G[facility] findings [place] coma scale eye opening: Spontaneous [place] coma scale verbal response: Orientated [place] coma scale motor response: Obey commands Sam coma scale total score: 15 COMMON NORMALS: patient oriented x3, moves all extremities, no focal motor deficits and no sensory deficits noted SENSORIUM/ORIENTATION: Yes alert, Yes oriented to person, Yes oriented to place and Yes oriented to time Skin: TRAUMA: abrasion (left upper extremity) Procedures Laceration Laceration 1: Site: scalp Size (cm): 2.5 Description: linear Depth: simple, single layer Local Anesthetic: lidocaine 2% and with epi Amount of anesthesia used (mL): 2.0 Pre-repair: wound explored and irrigated extensively Size (cm): other (brielle) Number of sutures: 4 Course Consultations: Consultation #1: Dr. Wright-reviewed CT findings with him who is recommending Iliamna J collar and will follow up in office this week. Vital Signs: Vital signs: Vital Signs Temperature 98.0 F 05/16/25 11:42 Pulse Rate 57 L 05/16/25 11:42 Respiratory Rate 16 05/16/25 11:42 Blood Pressure 169/81 05/16/25 13:23 Pulse Oximetry 98 05/16/25 13:23 Oxygen Delivery Me thod Room Air 05/16/25 11:42 MDM - Fall Medical Decision Making Patient is a 70-year-old female here following a fall. She is complaining of a scalp laceration, neck pain, pain to the bridge of her nose, skin tear to her left elbow. Tetanus is up-to-date. Scalp laceration was copiously irrigated and repaired as documented. CT scans of her head, cervical spine, and facial bones were obtained. CT cervical spine showing an acute C2 fracture. This was reviewed with Dr. Wright who is recommending a Iliamna J collar and he will follow-up with her in office this week. Remainder of CT imaging was unremarkable. Left elbow was normal. Skin tear was cleaned and dressed. Patient states she feels comfortable taking her Tramadol at home as needed for discomfort. She was given strict instructions to not remove her cervical collar at any time. Medical Records I reviewed the patient's medical records. Lab Data Radiology Impressions Cervical Spine CT 05/16/25 12:10 IMPRESSION: 1. Acute C2 fracture. Fracture involving the base of the odontoid process. Additional fracture continues into the body of C2. Combination of type II and type III odontoid fracture. No displacement. 2. Facet joints are narrowed but there is no subluxation. 3. No high-grade central stenosis. Notified CARLOS Sparks at 05/16/2025 1:[address] 05/16/25 12:10 IMPRESSION: 1. No facial bone fractures. 2. Reidentified is odontoid fracture, described on the CT cervical spine performed the same day. Head CT 05/16/25 12:10 IMPRESSION: 1. No acute intracranial hemorrhage or edema. 2. Mild cerebral and cerebellar atrophy with moderate small vessel disease. 3. No skull fracture. 4. Superficial LEFT frontal scalp laceration. All radiology interpretation(s) finalized by discharge Discharge Plan Discharge Patient Disposition: Home Clinical Impression: Odontoid fracture Qualifiers: Encounter type: initial encounter Fracture type: closed Qualified Code(s): S12.100A - Unspecified displaced fracture of second cervical vertebra, initial encounter for closed fracture Skin tear of left elbow without complication Qualifiers: Encounter type: initial encounter Qualified Code(s): S51.012A - Laceration without foreign body of left elbow, initial encounter Contusion of nose Qualifiers: Encounter type: initial encounter Qualified Code(s): S00.33XA - Contusion of nose, initial encounter Condition: Stable Prescriptions: No Action atorvastatin [Lipitor] 40 mg tablet 40 mg PO QPM Qty: 30 2RF furosemide 20 mg tablet See Rx Instructions .ROUTE .COMPLEX Qty: 30 3RF Dose Instruction: TAKE ONE TABLET BY MOUTH DAILY NEEDED FOR EDEMA Rx Instructions: TAKE ONE TABLET BY MOUTH DAILY NEEDED FOR EDEMA sertraline 100 mg tablet 100 mg PO BEDTIME tramadol 50 mg tablet 50 mg PO Q6H PRN (Reason: Pain) lkgjhjxqnd-zmahmwntnijhz-zrll 50-325-40 mg Tablet 1 tab PO Q4H PRN (Reason: Headache) alprazolam 0.5 mg tablet 0.5 mg PO .UP TO TID PRN (Reason: Anxiety) melatonin 10 mg Tablet 10 mg PO BEDTIME methocarbamol 750 mg Tablet 750 mg PO Q6H PRN (Reason: Muscle Spasm) pantoprazole 40 mg Tablet,Delayed Release (Dr/Ec) 40 mg PO DAILY Premarin 0.625 mg Tablet 0.625 mg PO DAILY clopidogrel 75 mg tablet 75 mg PO DAILY Qty: 90 3RF aspirin 81 mg Tablet,Delayed Release (Dr/Ec) 81 mg PO DAILY 30 Days Qty: 30 0RF Discharge Orders: Discharge ED (Routine); Ordered 05/16/25 Ordered By: Lily Waldrop Referrals: Arturo Rosa [Primary Care Provider, Family Practice] Patient Instructions: Cervical Fracture (DC), Iliamna J Collar (ED), Patient Portal & Satish Instructions Activity Restrictions/Additional Instructions: As we discussed, it is imperative that you do not remove your cervical collar at any time. YOU MUST WEAR THIS AT ALL TIMES. Case management will set you up with an appointment to see Dr. Wright this week. You make take your Tramadol every 4-6 hours as needed for pain. 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
--- NOTE | 2025-05-16 12:10 | XRR_ITS ---
PROCEDURE INFORMATION: Exam: XR Left Elbow Exam date and time: 05/16/2025 12:22 PM Age: 70 years old Clinical indication: Injury or trauma; Fall; Blunt trauma (contusions or hematomas); Elbow; Left; Additional info: Fall/trauma TECHNIQUE: Imaging protocol: Radiologic exam of the left elbow. Views: 3 or more views. COMPARISON: No relevant prior studies available. FINDINGS: Bones/joints: No acute fracture or dislocation. Joint spaces are preserved. Soft tissues: Normal. XR/XR elbow LT min 3V* [id number] IMPRESSION: No acute fracture or dislocation.
--- NOTE | 2025-05-16 12:10 | CT_ITS ---
WS: [id number] CT CERVICAL SPINE HISTORY: fall/ trauma TECHNIQUE: Contiguous 2.0 mm axial imaging performed through the entire cervical spine. Sagittal and coronal reformats also performed. All CT scans at [facility] use at least one of these dose optimization techniques: automated exposure control; mA and/or kV adjustment per patient size (includes targeted exams where dose is matched to clinical indication); or iterative reconstruction. DLP: 1983.40 mGy.cm COMPARISON: None available. Increase in the cervical lordosis. Acute fracture involving the C2 vertebral body. Fracture extends through the base of the odontoid process. Fracture also extends into the body of C2. Consistent with a combination of a type II and type III odontoid fractures. No significant displacement. Lateral masses are normally aligned. Craniocervical junction is normal. No additional fractures are identified. Facet joints are narrowed from degenerative facet disease. No subluxation. No asymmetric widening. No significant prevertebral edema or hematoma is identified by CT. No high-grade central stenosis. Facet joint arthropathy and mild foraminal narrowing at several levels. Lung apices are clear. CT/CT cervical spin wo con* [id number] IMPRESSION: 1. Acute C2 fracture. Fracture involving the base of the odontoid process. Add itional fracture continues into the body of C2. Combination of type II and type III odontoid fracture. No displacement. 2. Facet joints are narrowed but there is no subluxation. 3. No high-grade central stenosis. Notified CARLOS Sparks at 05/16/2025 1:07 PM.
--- NOTE | 2025-05-16 12:10 | CT_ITS ---
WS: [id number] CT FACIAL BONES HISTORY: fall/trauma TECHNIQUE: Images obtained from the supraorbital location through the mandible. Soft tissue and bone windows are reviewed. Coronal and sagittal reformats have also been submitted. DLP: 1983.[address] scans at [facility] use at least one of these dose optimization techniques: automated exposure control; mA and/or kV adjustment per patient size (includes targeted exams where dose is matched to clinical indication); or iterative reconstruction. COMPARISON: None available. No acute facial bone fractures are identified. Nasal bones and the zygomatic arches are intact. No air-fluid levels within the sinuses. Mandibular condyles are intact. Normal appearance of the orbits and globes. Soft tissue laceration over the LEFT frontal region is not included on this exam. Laceration was better seen on the CT of the head. Reidentified is a fracture involving the base of the odontoid fracture and the body of C2. Craniocervical junction is normal. CT/CT facial bones wo con* [id number] IMPRESSION: 1. No facial bone fractures. 2. Reidentified is odontoid fracture, described on the CT cervical spine perfo rmed the same day.
--- NOTE | 2025-05-16 12:10 | CT_ITS ---
WS: [id number] CT HEAD NONCONTRAST HISTORY: trauma TECHNIQUE: Contiguous axial imaging performed through the brain. Bone and soft tissue windows. Sagittal and coronal reformats reviewed. All CT scans at [facility] use at least one of these dose optimization techniques: automated exposure control; mA and/or kV adjustment per patient size (includes targeted exams where dose is matched to clinical indication); or iterative reconstruction. DLP: 1983.40 mGy.cm COMPARISON: None available. No acute intracranial hemorrhage, midline shift or mass effect. Mild symmetric atrophy. Moderate small vessel ischemic disease. No acute findings. Ventricles: Normal size with no hydrocephalus. No inferior displacement of the cerebellar tonsils. Paranasal sinuses: As visualized are clear. Mastoid air cells: Well pneumatized. Calvarium and scalp: No skull fracture. Superficial scalp laceration over the LEFT frontal region. CT/CT head wo con* [id number] IMPRESSION: 1. No acute intracranial hemorrhage or edema. 2. Mild cerebral and cerebellar atrophy with moderate small vessel disease. 3. No skull fracture. 4. Superficial LEFT frontal scalp laceration.
[2025-05-16 13:23] VITALS: BP 169/81; O2SAT 98
[2025-05-16 14:49] VITALS: RESP 16
[2025-05-16] MEDS: morphine 4 mg/mL SDV 1 mL IM (14:49)
--- NOTE | 2025-05-16 14:56 | DCPLANNER ---
Message sent to Ortho for Urgent follow up-Patient is a 70-year-old female here following a fall. She is complaining of a scalp laceration, neck pain, pain to the bridge of her nose, skin tear to her left elbow. Tetanus is up-to-date. Scalp laceration was copiously irrigated and repaired as documented. CT scans of her head, cervical spine, and facial bones were obtained. CT cervical spine showing an acute C2 fracture. This was reviewed with Dr. Wright who is recommending a Burt J collar and he will follow-up with her in office this week. Remainder of CT imaging was unremarkable. Left elbow was normal. Skin tear was cleaned and dressed. Patient states she feels comfortable taking her Tramadol at home as needed for discomfort. She was given strict instructions to not remove her cervical collar at any time.
[2025-05-16 15:13] VITALS: BP 151/77; PULSE 56; RESP 16; O2SAT 94
== END 2025-05-16 15:14 | disposition home or self-care (01) ==
PROVIDERS: Emergency Provider Physician Assistant; PCP Family Medicine
DX: S12.100A Unspecified displaced fracture of second cervical vertebra, initial encounter for closed fracture (principal); S51.012A Laceration without foreign body of left elbow, initial encounter; S00.33XA Contusion of nose, initial encounter; S01.01XA Laceration without foreign body of scalp, initial encounter; Z79.82 Long term (current) use of aspirin; Z79.02 Long term (current) use of antithrombotics/antiplatelets; Z79.899 Other long term (current) drug therapy; W01.0XXA Fall on same level from slipping, tripping and stumbling without subsequent striking against object, initial encounter; I25.10 Atherosclerotic heart disease of native coronary artery without angina pectoris; Z95.5 Presence of coronary angioplasty implant and graft; Z87.891 Personal history of nicotine dependence
CPT/HCPCS: 12001; 70450; 70486; 72125; 73080; 96372; 97760; 99284; J2270; L0172

== ENCOUNTER → 2025-05-17 14:03 | Outpatient (BNVA) | payer MEDICARE, OTHER, SELFPAY | PROVIDERS: PCP Family Medicine; Visit Provider Orthopaedic Surgery | DX: S12.112A Nondisplaced Type II dens fracture, initial encounter for closed fracture (principal); W19.XXXA Unspecified fall, initial encounter; Z46.89 Encounter for fitting and adjustment of other specified devices | CPT/HCPCS: 72040; 99203 ==

== ENCOUNTER → 2025-05-31 14:28 | Outpatient (BNVA) | payer MEDICARE, OTHER, SELFPAY | PROVIDERS: PCP Family Medicine; Visit Provider Orthopaedic Surgery | DX: S12.110D Anterior displaced Type II dens fracture, subsequent encounter for fracture with routine healing (principal); X58.XXXD Exposure to other specified factors, subsequent encounter | CPT/HCPCS: 72040; 99213 ==

== ENCOUNTER → 2025-06-14 15:16 | Outpatient (BNVA) | payer MEDICARE, OTHER, SELFPAY | PROVIDERS: PCP Family Medicine; Visit Provider Orthopaedic Surgery | DX: S12.110D Anterior displaced Type II dens fracture, subsequent encounter for fracture with routine healing (principal); X58.XXXD Exposure to other specified factors, subsequent encounter | CPT/HCPCS: 72040; 99024; 99213 ==

== ENCOUNTER 2025-06-16 08:23 | Outpatient (CLI) | payer MEDICARE, OTHER, SELFPAY ==
--- NOTE | 2025-06-16 08:45 | CTR_ITS ---
CT/CT cervical spin wo con* [id number] PROCEDURE INFORMATION: Exam: CT Cervical Spine Without Contrast Exam date and time: 06/16/2025 8:47 AM Age: 70 years old Clinical indication: Condition or disease; Other: FX; Additional info: Neck pain TECHNIQUE: Imaging protocol: Computed tomography of the cervical spine without contrast. Radiation optimization: All CT scans at this facility use at least one of these dose optimization techniques: automated exposure control; mA and/or kV adjustment per patient size (includes targeted exams where dose is matched to clinical indication); or iterative reconstruction. COMPARISON: CT cervical spin wo con* [id number] 05/16/2025 12:37 PM RADIATION DOSE METRICS: Total DLP (mGy-cm): 144.57 FINDINGS/IMPRESSION: Bones: Again noted is the fracture of the base of the odontoid which was previously nondisplaced but now is displaced about 4 mm AP, best appreciated on the sagittal series. There is now a mild central canal stenosis at the C2 level were on previous imaging there was no central canal stenoses. No definite spinal cord impingement. The remainder of the study is unchanged. There are multilevel chronic degenerative changes throughout the cervical spine. No new areas of cervical spine fracture identified. Lungs: Lung apices are normal. Soft tissues: Unremarkable.
== END 2025-06-16 08:24 | disposition home or self-care (01) ==
LOC: RAD 08:23
PROVIDERS: PCP Family Medicine; Visit Provider Orthopaedic Surgery
DX: S12.110A Anterior displaced Type II dens fracture, initial encounter for closed fracture (principal); M48.02 Spinal stenosis, cervical region; X58.XXXA Exposure to other specified factors, initial encounter
CPT/HCPCS: 36415; 72125; 80053; 81001; 85025; 87077; 87086; 87186; 99214

== ENCOUNTER 2025-06-22 16:17 | Inpatient (IN) | payer MEDICARE, OTHER, SELFPAY ==
[2025-06-22] VITALS (32 sets, daily range): BP systolic 116–154; BP diastolic 56–82; PULSE 79–102; RESP 9–26; TEMP 36.1–36.8; O2SAT 89–100
--- NOTE | 2025-06-22 09:50 | ANES.PREANE2 ---
Pre-Anesthetic Assessment Height/Weight: Height 5 ft 5 in Weight 144 lb Temp Resp BP Pulse Ox O2 Del Method 97 F L 16 134/82 97 Room Air 06/22/25 08:00 06/22/25 08:00 06/22/25 08:00 06/22/25 08:00 06/22/25 08:00 Preop Diagnosis: Displaced dens fracture Operation Date: 06/22/25 09:40 Proposed Procedures p Posterior cervical fusion C1/2(Not Applicable) - Davis Wright, DO Was Beta Beto taken within 24 hours: N/A Was Clonidine taken within 24 hours: N/A Last intake: Intake Last Liquid Date 06/21/25 Last Liquid Time 18:00 Last Solid Date 06/21/25 Last Solid Time 18:00 Social Tobacco and No alcohol Exam alert, oriented x 3 and regular rate & rhythm Decreased breath sounds bilaterally Airway Cervical ROM: Other (C-collar in place for displaced C1 fracture) Mallampati: Class III Dentition: full Anesthetic Plan ASA status: 4 Anesthesia: General Other: Patient has a displaced dens fracture currently in c-collar No prior anesthesia issues NPO since yesterday evening Patient is s/p PCI to LAD 4 months ago. On chronic Plavix. Cardiology is aware of situation and recommending patient continue her Plavix due to significant increased risk of a cardiac event GERD on Protonix Patient has held her aspirin for the last 5 days Patient's daughter is at bedside, extensive conversation had with patient and her daughter about increased risk of bleeding as well as a cardiac event. However, due to her current fracture and surgeon and myself have agreed that this does need to be repaired at this time. We will plan on having platelets in house as the last case scenario. Type and screen performed. Educated patient that if there was any concern about excess bleeding towards the end of the procedure, we would most likely leave breathing device and due to concern of a expanding hematoma. Patient and daughter are aware and would like to proceed at this time Medications/Allergies Home Medications ?Medication ?Instructions ?Recorded ?Confirmed ?Last Taken ?Type alprazolam 0.5 mg tablet 0.5 mg PO .UP TO TID PRN Anxiety 07/30/23 06/21/25 02/14/25 History uagtsusjlp-sgzmcbnghmxnd-mfgbskmb 1 tab PO Q4H PRN Headache 07/30/23 06/21/25 Unknown History 50 mg-325 mg-40 mg tablet melatonin 10 mg tablet 10 mg PO BEDTIME 07/30/23 06/21/25 06/21/25 History sertraline 100 mg tablet 100 mg PO DAILY 07/30/23 06/21/25 06/21/25 History tramadol 50 mg tablet 50 mg PO Q6H PRN Pain 07/30/23 06/21/25 02/13/25 History conjugated estrogens 0.625 mg 0.625 mg PO DAILY 05/26/24 06/21/25 06/21/25 History tablet (Premarin) pantoprazole 40 mg tablet,delayed 40 mg PO DAILY 05/26/24 06/21/25 06/21/25 History release aspirin 81 mg tablet,delayed 81 mg PO DAILY 30 days #30 tabs 02/17/25 06/21/25 06/16/25 Rx release clopidogrel 75 mg tablet 75 mg PO DAILY #90 tabs 02/17/25 06/22/25 06/22/25 Rx sulfamethoxazole 800 1 tab PO BID 10 days #20 tabs 06/16/25 06/22/25 06/22/25 Rx mg-trimethoprim 160 mg tablet (Bactrim DS) atorvastatin 40 mg tablet (Lipitor) 80 mg PO QPM 06/21/25 06/21/25 06/20/25 History Allergies Allergy/AdvReac Type Severity Reaction Status Date / Time No Known Allergies Allergy Verified 06/21/25 09:44 Current Medications Generic Name Dose Route Start Last Admin Trade Name Freq PRN Reason Stop Dose Admin Sodium Chloride 1,000 mls @ 30 mls/hr 06/22/25 08:00 06/22/25 09:38 Sodium Chloride 0.9% IV 06/23/25 07:59 30 mls/hr .Q24H MELISSA Administration PFSH Anesthesia Medical History CAD (coronary artery disease) Surgical History Stented coronary artery Social History Smoking and tobacco/nicotine status: former use of tobacco/nicotine Data Anesthesia Blood Bank 06/22/25 08:12 Blood Type O Positive Rho(D) Type Rh positive Antibody Screen Negative Cardiac Studies: Echocardiogram 02/15/25
--- NOTE | 2025-06-22 09:55 | W.PM.OPSUD ---
Surgery/Procedure H&P Update DATE OF PROCEDURE: June 22, 2025 DATE H&P PERFORMED: 06/16/25 H&P UPDATE INFORMATION: I have reviewed H&P completed within last 30 days, I have examined patient prior to procedure and No changes to prior documentation PREOP DIAGNOSIS: Displaced dens fracture PLANNED PROCEDURE: Operation Date: 06/22/25 09:40 Proposed Procedures p Posterior cervical fusion C1/2(Not Applicable) - Davis Wright DO
[2025-06-22] MEDS: ceFAZolin 2,000 mg SDV 2000 MG IVP ×3 (11:07→22:01)
[2025-06-22] MEDS: thrombin 5,000 unit SDV 5000 UNIT XX (12:51)
[2025-06-22] MEDS: lidocaine-epi 1% 20 mL INJ 10 ML INJECTION (12:52)
[2025-06-22] MEDS: tobramycin 40 mg/mL SDV 2mL 120 MG XX (13:54)
--- NOTE | 2025-06-22 14:33 | P.OP_ITS ---
Operative Report Date of procedure: June 22, 2025 Pre-op diagnosis: Displaced dens fracture Post-op diagnosis: same Procedure done: 1. C1-2 posterior spine fusion 2. C1-2 posterior spine instrumentation 3. Use of computer navigation stereotactic for spine Surgeon: Davis Wright DO Estimated blood loss (mL): 100 Procedure: 1. C1-2 posterior spine fusion 2. C1-2 posterior spine instrumentation 3. Use of computer navigation stereotactic for spine Patient is brought to the operative suite after undergoing anesthesia patient was placed in the prone position. All areas of impingement were well-padded. Patient was then prepped and draped in the normal sterile fashion. Skin in cision was made over the posterior cervical spine. Subperiosteal dissection was made out to the C2 lateral masses. Next attention was brought to dissecting out to the C1 lateral masses along the posterior lamina. This was done by exposing the midline and then using a Ray-Sunday to help expose the C1 vertebrae. Next a fiducial was attached to the spinous process of C7. Then the C-arm was brought in and spun around the patient. The information from the C arm was used for placing the C1 and C2 screws. Attention was first brought to placing the C2 screws. This was done by placing prior screws. Using the computer navigation high-speed bur was used at the starting point followed by a navigated drill. Drill was navigated to 16 mm and then a 18 mm screw was placed. This was done bilaterally. Next attention was brought to placing the C1 screw. The lateral mass was dissected out with a [place]. And then the drill navigated was placed onto the lateral mass inferior to the lamina. This was drilled to 16 mm and a 24 mm screw partially-threaded screw was placed. This was done bilaterally as well. The navigation was used to spin to confirm the screws were in appropriate position. Once this was complete then rods were attached to the tulips. These were then torqued into position. With the caps. And then ostial amp bone graft was packed into the lateral gutters. And the calcium sulfate beads with tobramycin and vancomycin were then placed into the wound to help decrease risk of infection. Drain was not used. Wound was then closed in a layered fashion with 0 Vicryl 2-0 Vicryl Monocryl suture. Sterile dressings were applied and patient was transferred to the PACU in stable addition.
--- NOTE | 2025-06-22 14:52 | XRR_ITS ---
PROCEDURE INFORMATION: Exam: XR Cervical Spine Exam date and time: 06/22/2025 3:07 PM Age: 70 years old Clinical indication: Neck pain; Prior surgery; Surgery date: Post-operative (0-2 days); Surgery type: Post op ap lat c. Spine TECHNIQUE: Imaging protocol: Radiologic exam of the cervical spine. Views: 2 or 3 views. COMPARISON: CT cervical spin wo con* [id number] 06/16/2025 8:47 AM FINDINGS: Tubes, catheters and devices: Postoperative changes from posterior instrumented spinal fusion at C1-C2 are present. Surgical components appear well aligned and intact without failure/loosening. No acute periprosthetic fracture is noted. Bones/joints: Improved osseous alignment of the previously noted displaced type 2/3 odontoid fracture. The 6 and 7th cervical vertebral bodies are obscured on the lateral image. The remaining imaged osseous structures are intact. Varying degrees of intervertebral disc height loss are noted at multiple levels. Degenerative changes are better delineated on prior CT from 06/16/2025. Uncovertebral osteoarthritis is present. Soft tissues: Radiopaque beads in the posterior neck soft tissues may be postsurgical in nature. Correlate with surgical history. Airway: The imaged airway is patent. Lungs: The imaged lungs are clear. XR/XR cervical spine 3V* [id number] IMPRESSION: Improved osseous alignment of the type 2/3 odontoid fracture status post posterior instrumented spinal fusion at C1-C2. No acute complication.
[2025-06-22] MEDS: fentaNYL 50 mcg/mL INJ 2mL IVP ×2 (15:20→15:48)
--- NOTE | 2025-06-22 15:35 | PC.NURSE ---
1535 - Dr Dangelo at pts side - pt complaining of difficulty swallowing - no new orders rec'd
--- NOTE | 2025-06-22 15:36 | PC.NURSE ---
1450 - right wrist art line removed per Harriet Barbour RN with pressure held for approx 10 minutes - bruising and slight edema noted to sight - CLAY TRANSPORTER aware - will monitor
--- NOTE | 2025-06-22 16:20 | ANE.PACU2 ---
Inpatient post-anesthesia follow up: Airway intact: Yes Vital signs: Temperature 97.3 F Pulse Rate 91 Respiratory Rate 16 Blood Pressure 154/78 Pulse Oximetry 95 Oxygen Delivery Me thod Room Air Oxygen Flow Rate 8 Fraction of Inspir ed Oxygen Hydration adequate: Yes Nausea and vomiting: No Pain level: 1 Mental status: Baseline
[2025-06-22] MEDS: sulfamethoxazole-trimeth DS 160-800 mg Tablet 1 TAB PO (17:24)
[2025-06-22] MEDS: HYDROcodone-acetaminophen 5-325 mg Tablet PO (17:32)
[2025-06-22] MEDS: morphine 4 mg/mL SDV 1 mL 2 MG IVP ×2 (17:33→21:08)
--- NOTE | 2025-06-22 18:14 | PM.CONSULT ---
Providers/Reason For Consult Consulting Physician/Specialty*: spine surgery Reason for Consult*: medical management Attending Physician: Davis Wright DO Primary Care Provider: Arturo Rosa History of Present Illness History of Present Illness Layne Robledo is a 70 year old female with past medical history significant urgencies, depression, CKD who underwent stenting of left main coronary artery in January of this year. She underwent a posterior cervical C1-C2 fusion today with spine surgery. She is being admitted for observation. Medicine consulted for medical management. Review of Systems General: Reports: 10 or more systems reviewed and unremarkable except in HPI and below Medications/Allergies Home Medications ?Medication ?Instructions ?Recorded ?Confirmed ?Last Taken ?Type alprazolam 0.5 mg tablet 0.5 mg PO .UP TO TID PRN Anxiety 07/30/23 06/21/25 02/14/25 History gogkalgqfd-caowxgafcwysi-pvxjjxji 1 tab PO Q4H PRN Headache 07/30/23 06/21/25 Unknown History 50 mg-325 mg-40 mg tablet melatonin 10 mg tablet 10 mg PO BEDTIME 07/30/23 06/21/25 06/21/25 History sertraline 100 mg tablet 100 mg PO DAILY 07/30/23 06/21/25 06/21/25 History tramadol 50 mg tablet 50 mg PO Q6H PRN Pain 07/30/23 06/21/25 02/13/25 History conjugated estrogens 0.625 mg 0.625 mg PO DAILY 05/26/24 06/21/25 06/21/25 History tablet (Premarin) pantoprazole 40 mg tablet,delayed 40 mg PO DAILY 05/26/24 06/21/25 06/21/25 History release aspirin 81 mg tablet,delayed 81 mg PO DAILY 30 days #30 tabs 02/17/25 06/21/25 06/16/25 Rx release clopidogrel 75 mg tablet 75 mg PO DAILY #90 tabs 02/17/25 06/22/25 06/22/25 Rx sulfamethoxazole 800 1 tab PO BID 10 days #20 tabs 06/16/25 06/22/25 06/22/25 Rx mg-trimethoprim 160 mg tablet (Bactrim DS) atorvastatin 40 mg tablet (Lipitor) 80 mg PO QPM 06/21/25 06/21/25 06/20/25 History Allergies Allergy/AdvReac Type Severity Reaction Status Date / Time No Known Allergies Allergy Verified 06/21/25 09:44 Current Medications Generic Name Dose Route Start Last Admin Trade Name Freq PRN Reason Stop Dose Admin Hydrocodone Bitart/Acetaminophen 1 - 2 tab 06/22/25 14:25 06/22/25 17:32 Hydrocodone-Acetaminophen 5-325 Mg Tablet PO 2 tab Q4H PRN Administration MODERATE TO SEVERE PAIN Atorvastatin Calcium 80 mg 06/22/25 18:00 06/22/25 17:24 Atorvastatin 40 Mg Tablet PO 80 mg QPM MELISSA Administration Cefazolin Sodium 2,000 mg 06/22/25 14:30 06/22/25 17:24 Cefazolin 2,000 Mg Sdv IVP 06/23/25 06:31 2,000 mg Q8H MELISSA Administration Protocol Docusate Sodium 100 mg 06/22/25 18:00 06/22/25 17:24 Docusate Sodium 100 Mg Capsule PO 100 mg BID MELISSA Administration Lactated Ringer's 1,000 mls @ 90 mls/hr 06/22/25 14:30 06/22/25 17:24 Lactated Ringers IV 90 mls/hr .Q11H7M MELISSA Administration Ketorolac Tromethamine 30 mg 06/22/25 14:25 06/22/25 17:32 Ketorolac 30 Mg/Ml Inj IVP 30 mg Q6H PRN Administration BREAKTHROUGH PAIN Morphine Sulfate 2 mg 06/22/25 14:25 06/22/25 17:33 Morphine 4 Mg/Ml Sdv 1 Ml IVP 2 mg Q1H PRN Administration SEVERE PAIN Trimethoprim/Sulfamethoxazole 1 tab 06/22/25 18:00 06/22/25 17:24 Sulfamethoxazole-Trimeth Ds 160-800 Mg Tablet PO 1 tab BID MELISSA Administration Protocol PFSH Acute PFSH: Medical History CAD (coronary artery disease) Surgical History (Updated 06/22/25 @ 18:20 by Raghu Arreaga MD) Stented coronary artery Social History Smoking and tobacco/nicotine status: former use of tobacco/nicotine Vitals/I&O/Wt Last Vital Signs Temp 97.3 F L 06/22/25 17:25 Pulse 91 06/22/25 17:25 Resp 16 06/22/25 17:33 BP 154/78 06/22/25 17:25 Pulse Ox 95 06/22/25 17:25 O2 Del Method Room Air 06/22/25 16:31 O2 Flow Rate 8 06/22/25 15:02 06/22/25 06/22/25 06/22/25 06:59 14:59 22:59 Intake Total 1450 / 1450 241.5 / 1691.5 Output Total 265 / 265 Balance 1185 / 1185 241.5 / 1426.5 Weight last 48 hrs Weight 144 lb Physical Exam Narrative: General:NAD, AAO x 3 HEENT: Collar Lungs:CTA CVS:RRR MSK: No deformity Urinary Catheter Management: Colind[place]: Cath Placed During This Visit: yes Reason for Continuing Indwelling Catheter: Perioperative Use in Selected Surgeries Urinary Catheter Date of Insertion: 06/22/25 Urinary Catheter Time of Insertion: 11:35 A&P Assessment and plan 1. S/P cervical spinal fusion: post op care per spine surgery prn analgesics monitor bowel function on antiplatelet therapy due to recent CAD 2. CAD (coronary artery disease): Restart aspirin Plavix per surgery. Okay to restart Lipitor 3. CKD (chronic kidney disease): Monitor renal function. Will check labs. Plan: Admitted for observation. Will check labs. Restart home medications. DVT and antiplatelet therapy to be restarted by surgery when okay PDMP PDMP Reviewed: Not Reviewed Coding Level of Care Code Acute Code for Chg Fwd Diagnoses S/P cervical spinal fusion Z98.1 CAD (coronary artery disease) I25.10 CKD (chronic kidney disease) N18.9
[2025-06-22] MEDS: MELATONIN 3 MG TABLET 9 MG PO (21:07)
[2025-06-23] VITALS: BP 131/69; PULSE 86; RESP 17; TEMP 36.8; O2SAT 95
[2025-06-23 03:25] VITALS: BP 144/71; PULSE 80; RESP 16; O2SAT 96
[2025-06-23] MEDS: ceFAZolin 2,000 mg SDV 2000 MG IVP (06:11)
[2025-06-23 07:55] VITALS: BP 132/71; PULSE 74; RESP 18; TEMP 36.6; O2SAT 92
--- OUTSIDE RECORDS SUMMARY | 2025-06-23 08:26 | XMS_ITS | Encounter Summary ---
Author Organization [facility] Address [address] [place] [address] Care Team Providers Care Wardrobe Attendant Name Role Phone Delbert Rosa MD Primary Care Provider Encounter Details Date Type Department Care Team (Late st Contact Info) Description 04/07/2014 Ancillary Orders [facility] Admitting [address] [place] [address] Queenie Mcarthur MD [address] [facility] [place] [address] Degenerative disc disease (Primary Dx) Social History Tobacco Use Types Packs/Day Years Used Date Smoking Tobacco: Never Assessed Comments Unknown Sex and Gender Information Value Date Recorded Sex Assigned at Not on file 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
--- OUTSIDE RECORDS SUMMARY | 2025-06-23 08:26 | XMS_ITS | Clinical Summary ---
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
--- OUTSIDE RECORDS SUMMARY | 2025-06-23 08:26 | XMS_ITS | Encounter Summary ---
Author Organization [facility] Address [address] [place] [address] Care Team Providers Care Milk Bottling Machine Operator Name Role Phone Delbert Rosa MD Primary Care Provider Encounter Details Date Type Department Care Team (Latest Contact Info) Description 05/14/2004 Outpatient Historical [facility] [place] [address] [place] [phone] Eliceo Mcallister MD [address] [place] [phone] DERMATITIS NOS (Primary Dx) Social History Tobacco Use Types Packs/Day Years Used Date Smoking Tobacco: Never Assessed Comments Unknown Sex and Gender Information Value Date Recorded Sex Assigned at Not on file 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
--- OUTSIDE RECORDS SUMMARY | 2025-06-23 08:26 | XMS_ITS | Encounter Summary ---
Author Organization [facility] Address [address] [place] [address] Care Team Providers Care Health And Fitness Professor Name Role Phone Delbert Rosa MD Primary Care Provider Encounter Details Date Type Department Care Team (Latest Contact Info) Description 02/25/2005 Outpatient Historical [facility]- [place] [address] [place] [phone] Eliceo Mcallister MD [address] [place] [phone] CELLULITIS NOS (Primary Dx) Social History Tobacco Use Types Packs/Day Years Used Date Smoking Tobacco: Never Assessed Comments Unknown Sex and Gender Information Value Date Recorded Sex Assigned at Not on file 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
--- OUTSIDE RECORDS SUMMARY | 2025-06-23 08:26 | XMS_ITS | Clinical Summary ---
Author Organization [facility] Address [address] [facility] Attn: [place] [address] Care Team Providers Care Foundry Laborer Coreroom Name Role Phone Delbert Rosa MD Primary Care Provider Social History Tobacco Use Types Packs/Day Years Used Date Smoking Tobacco: Never Assessed Comments Unknown Sex and Gender Information Value Date Recorded Sex Assigned at Not on file Legal Sex Female 4:27 AM GROUNDHAND Gender Identity Not on file Sexual Orientation [...] - 1-dose 75+ series) 2028 Care Teams Foundry Laborer Coreroom Relationship Specialty Start Date End Date Delbert Rosa MD [address] [place] [address] PCP - General Family Practice 04/07/14
--- OUTSIDE RECORDS SUMMARY | 2025-06-23 08:26 | XMS_ITS | Encounter Summary ---
Author Organization [facility] Address [address] [place] [address] Care Team Providers Care Identity Management Developer Name Role Phone Delbert Rosa MD Primary Care Provider Encounter Details Date Type Department Care Team (Latest Contact Info) Description 01/10/2004 Outpatient Historical [facility] [place] [address] [place] [phone] Eliceo Mcallister MD [address] [place] [phone] TRIGEMINAL NEURALGIA (Primary Dx) Social History Tobacco Use Types Packs/Day Years Used Date Smoking Tobacco: Never Assessed Comments Unknown Sex and Gender Information Value Date Recorded Sex Assigned at Not on file 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
--- OUTSIDE RECORDS SUMMARY | 2025-06-23 08:26 | XMS_ITS | Encounter Summary ---
Author Organization [facility] Address [address] [place] [address] Care Team Providers Care Custodian Blood Bank Name Role Phone Delbert Rosa MD Primary Care Provider Encounter Details Date Type Department Care Team (Latest Contact Info) Description 03/29/2004 Outpatient Historical [facility]- [place] [address] [place] [phone] Eliceo Mcallister MD [address] [place] [phone] HEADACHE (Primary Dx) Social History Tobacco Use Types Packs/Day Years Used Date Smoking Tobacco: Never Assessed Comments Unknown Sex and Gender Information Value Date Recorded Sex Assigned at Not on file 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
[2025-06-23] MEDS: HYDROcodone-acetaminophen 5-325 mg Tablet PO (08:33)
[2025-06-23] MEDS: sulfamethoxazole-trimeth DS 160-800 mg Tablet 1 TAB PO (08:33)
--- NOTE | 2025-06-23 10:22 | P.DS_ITS ---
Discharge Providers Date of Admission: 06/22/25 16:17 Date of Discharge: June 23, 2025 Attending Provider at Admission: Davis Wright DO Attending Provider at Discharge: Davis Wright DO Primary Care Provider: Arturo Rosa Diagnoses at Discharge Discharge Diagnosis 1. S/P cervical spinal fusion: 2. Coronary artery disease involving [place] coronary artery of [place] heart without angina pectoris: 3. Chronic kidney disease, unspecified CKD stage: Reason for Visit Reason for Visit: S12.9XXA Physical Exam Narrative: Patient doing well up and ambulating. Urinary Catheter Management: Colindres: Cath Placed During This Visit: yes, but has since been removed by the nurse Reason for Continuing Indwelling Catheter: Perioperative Use in Selected Surgeries Urinary Catheter Date of Insertion: 06/22/25 Urinary Catheter Time of Insertion: 11:35 Date Urinary Catheter Removed: 06/23/25 Time Urinary Catheter Discontinued: 06:00 Discharge Data Studies Completed and Pending Completed Studies During Hospitalization Category Date Time Status XR cervical spine 3V* [id number] Routine Exams 06/22/25 14:52 Completed Pending at discharge Category Date Time Status C-arm Fluoroscopy [id number] Routine Exams 06/22/25 07:51 Taken ABO/Rh Type Stat Lab 06/22/25 08:12 Results Complete Crossmatch Stat Lab 06/22/25 08:12 Results Platelets Leuko-Reduced Stat Lab 06/22/25 08:12 Results Type and Screen Stat Lab 06/22/25 08:12 Results Radiology Impressions Cervical Spine X-Ray 06/22/25 14:52 IMPRESSION: Improved osseous alignment of the type 2/3 odontoid fracture status post posterior instrumented spinal fusion at C1-C2. No acute complication. Laboratory Results Blood Type O Positive 06/22/25 08:12 Rho(D) Type Rh positive 06/22/25 08:12 Antibody Screen Negative 06/22/25 08:12 Vitals Last Vital Signs Temp 97.9 F 06/23/25 07:55 Pulse 74 06/23/25 07:55 Resp 18 06/23/25 07:55 BP 132/71 06/23/25 07:55 Pulse Ox 92 06/23/25 07:55 O2 Del Method Room Air 06/23/25 03:25 O2 Flow Rate 8 06/22/25 15:02 Discharge Plan Discharge Patient Disposition: Home Condition: Stable Prescriptions: New hydrocodone-acetaminophen 5-325 mg tablet 1 - 2 tab PO .Q4-6H Qty: 40 0RF Continued sulfamethoxazole-trimethoprim [Bactrim DS] 800-160 mg tablet 1 tab PO BID 10 Days Qty: 20 0RF sertraline 100 mg tablet 100 mg PO DAILY [id number] 50-325-40 mg Tablet 1 tab PO Q4H PRN (Reason: Headache) melatonin 10 mg Tablet 10 mg PO BEDTIME pantoprazole 40 mg Tablet,Delayed Release (Dr/Ec) 40 mg PO DAILY Premarin 0.625 mg Tablet 0.625 mg PO DAILY clopidogrel 75 mg tablet 75 mg PO DAILY Qty: 90 3RF aspirin 81 mg Tablet,Delayed Release (Dr/Ec) 81 mg PO DAILY 30 Days Qty: 30 0RF atorvastatin [Lipitor] 40 mg tablet 80 mg PO QPM Discontinued tramadol 50 mg tablet 50 mg PO Q6H PRN (Reason: Pain) alprazolam 0.5 mg tablet 0.5 mg PO .UP TO TID PRN (Reason: Anxiety) Referrals: Davis Wright DO [Physician, Orthopedics] - 06/28/25 8:30 am Discharge Diet: Advance as tolerated Discharge Activity: Limit activity as instructed Patient Instructions: Acute Wound Care (DC), Opioid Safety, Post Anesthesia Care, Patient Portal & Satish Instructions Activity Restrictions/Additional Instructions: Thank you for choosing [facility] for your care! The following is a list of instructions, from your provider, to follow upon your discharge to ensure you have the optimal recovery from your recent injury or surgery. Anterior Cervical Discectomy and Fusion: What to Expect at Home Your Recovery Follow-up care is a maloney part of your treatment and safety. Be sure to make and go to all appointments, and call your doctor if you are having problems. If you do not already have a follow-up appointment made, call office in the next 1-3 days to make follow up appointment for 2 weeks at [phone]. It is also a good idea to know your test results and keep a list of the medicines you take. You can expect your neck to feel stiff or sore after surgery. This should improve in the weeks after surgery. But it may take 4 to 6 months for you to get better completely. You may have trouble sitting or standing in one position for very long and may need pain medicine in the weeks after your surgery. It may take 4 to 6 weeks to get back to your usual activities, but it may depend on what kind of surgery you had. Your throat will feel sore and it may be difficult to swallow for the first 3 days after your surgery. As long as you can get liquids down without difficulty, this should slowly improve, otherwise call our office or seek medical attention if it becomes increasingly difficult to get anything down including liquids. Avoid hot liquids for first 3-5 days. Soothing foods/liquids such as jello, pudding, and luke warm soups are r ecommended until swallowing improves. Staying elevated will also help, it's advised you keep propped up at while sleeping to help reduce the swelling. You may use an ice pack directly on your incision or around it on the front of your neck, using a cloth to protect your skin; and a heating pad to the back of your neck as needed. Do not use over the counter anti-inflammatory medications (Ibuprofen, Motrin, Aleve, Advil, etc) Taking these meds after having a fusion can delay fusion rates, we recommend you avoid them for the first 3 [address] your surgery[address]. Wright may advise you to work with a physical therapist to strengthen the muscles around your neck and back - this will be discussed at your follow - up appointments. The pain or numbness you were having in your arms before surgery should get better or go away completely. This care sheet gives you a general idea about how long it will take for you to recover. But each person recovers at a different pace. Follow the steps below to get better as quickly as possible. How can you care for yourself at home? Activity ? Rest when you feel tired. Getting enough sleep will help you recover. ? Try to walk each day. Start by walking a little more than you did the day before. Bit by bit, increase the amount you walk. Walking boosts blood flow and helps prevent pneumonia and constipation. Walking may also decrease your muscle soreness after surgery. ? No lifting anything that is more that 5 pounds. This may include heavy grocery bags and milk containers, a heavy briefcase or backpack, cat litter or dog food bags, a child, or a vacuum office cleaner. ? Avoid strenuous activities, such as bicycle riding, jogging, weightlifting, or aerobic exercise, until your doctor says it is okay. ? Do not drive until your follow-up visit after your surgery, or until your doctor says it isokay. ? Avoid taking long car trips for 2 to 4 weeks after surgery. Your neck may become tired and painful from sitting too long in one position. ? You will probably need to take 4 to 6 weeks off from work. It depends on the type of work you do and how you feel. ? You may have sex as soon as you feel able, but avoid positions that put stress on your neck or cause pain. Diet ? You can eat your normal diet. If your stomach is upset, try bland, low-fat foods like plain rice, broiled chicken, toast, and yogurt ? Drink plenty of fluids. If you have kidney, heart, or liver disease and have to limit fluids, talk with your doctor before you increase the amount of fluids you drink. ? You may notice that your bowel movements are not regular right after your surgery. This is common. Try to avoid constipation and straining with bowel movements. You may want to take a fiber supplement every day. If you have not had a bowel movement after a couple of days, ask your doctor about taking a mild laxative. Medicines ? Take pain medicines exactly as directed. 1. If Dr. Wright gave you a prescription medicine for pain, take lt as prescribed. 2. Do not take two or more pain medicines at the same time unless the doctor told you to. Many pain medicines have acetaminophen, which is Tylenol. Too much acetaminophen {Tylenol) can be harmful. 3. If you think your pain pill is making you sick to your stomach: 4. Take your pills after meals (unless your doctor has told you not to). 5. Ask your Dr. for a different pain pill. Incisioncare ? Remove your dressing 48hours after your surgery. Ok to shower and get the incision wet. Do not overtly wash your incision. When done, pad dry, leave open to air thereafter. Avoid creams and ointments directly on your incision. ? Your sutures in the incision will dissolve and fall out on their own. ? Keep the area clean and dry. You may cover it with a gauze bandage if it weeps or rubs against clothing; if you choose to do this, change the dressing everyday. Other instructions ? Use a heating pad, hot water bottle, or gentle massage on your back to reduce stiffness. Avoid putting heat on your incision When should you call for help? ? Call 911 anytime you think you may need emergency care. For example, call if: ? You pass out (lose consciousness). ? You have sudden chest pain and shortness of breath, or you cough upblood. ? You cannot swallow. ? You have severe pain in your neck or back. ? Call your Dr. or seek immediate medical care if: ? You have pain that does not get better after you take pain pills. ? You have loose stitches, or your incision comes open. ? You have blood or fluid draining from the incision. ? You have signs of infection, such as: 1. Increased pain, swelling, warmth, or redness. 2. Red streaks leading from the site. 3. Pus draining from the site. 4. Swollen lymph nodes in your neck or armpits. 5. A fever. ? You have severe pain in your arms. ? You have new or increased weakness or numbness in your arms. ? Watch closely for any changes in your health, and be sure to contact your doctor if: ? You do not have a bowel movement after taking a laxative. Discharge Attestations Time Spent in Discharge Care*: less than 30 min Quality Metrics Clinical Quality Measures [ No reported AMI, CVA or VTE this stay] Coding Level of Care Code Acute Code for Chg Fwd Diagnoses S/P cervical spinal fusion Z98.1 Coronary artery disease involving [place] coronary artery of [place] heart without angina pectoris I25.10 Coronary Disease-Associated Artery/Lesion type: [place] artery [place] vs. transplanted heart: [place] heart Associated angina: without angina Chronic kidney disease, unspecified CKD stage N18.9 Chronic kidney disease stage: unspecified stage
--- NOTE | 2025-06-23 10:48 | PM.PN ---
Subjective Subjective: Patient is status post cervical spinal fusion. Patient today complains of some mild nausea earlier today she felt as if she might vomit. However she tolerated diet and is feeling better at this time. She has no new complaints Vitals/I&O/Wt Last Vital Signs Temp 97.9 F 06/23/25 07:55 Pulse 74 06/23/25 07:55 Resp 18 06/23/25 07:55 BP 132/71 06/23/25 07:55 Pulse Ox 92 06/23/25 07:55 O2 Del Method Room Air 06/23/25 03:25 O2 Flow Rate 8 06/22/25 15:02 06/22/25 06/23/25 06/23/25 22:59 06:59 14:59 Intake Total 441.5 / 1891.5 1869 / 3760.5 480 / 480 Output Total 300 / 565 700 / 1265 Balance 141.5 / 1326.5 1169 / 2495.5 480 / 480 Weight last 48 hrs Weight 69.989 kg Weight 65.317 kg Physical Exam Narrative: Patient is alert and oriented to person place time and situation neck collar in place heart is regular normal S1-S2 without murmurs clicks gallops or rubs lungs are clear to auscultation without wheezes rales or rhonchi abdomen soft nontender nondistended positive bowel sounds extremities no clubbing cyanosis or edema Urinary Catheter Management: Colindres: Cath Placed During This Visit: yes, but has since been removed by the nurse Reason for Continuing Indwelling Catheter: Perioperative Use in Selected Surgeries Urinary Catheter Date of Insertion: 06/22/25 Urinary Catheter Time of Insertion: 11:35 Date Urinary Catheter Removed: 06/23/25 Time Urinary Catheter Discontinued: 06:00 A&P Assessment and plan 1. Heart failure with preserved ejection fraction: 2. Stented coronary artery: 3. CAD (coronary artery disease): Plan: Patient is medically stable postoperatively agree with discharge. No change in medications upon discharge from medical perspective PDMP PDMP Reviewed: Not Reviewed Attestations Medical Necessity Statement*: Per attending Coding Level of Care Code Acute Code for Chg Fwd Diagnoses Heart failure with preserved ejection fraction I50.30 Stented coronary artery Z95.5 CAD (coronary artery disease) I25.10
--- NOTE | 2025-06-23 12:17 | PC.NURSE ---
Discharge Note Patient discharged to home via private vehicle accompanied by son. Discharge instructions reviewed with patient and/or billing customer service representative. Mobile pharmacy medications and/or prescriptions provided. Belongings/home medications returned.
[2025-06-23 12:19] VITALS: BP 132/71; PULSE 74; RESP 18; TEMP 36.3; O2SAT 92
--- NOTE | 2025-06-23 14:46 | PC.OT ---
PATIENT D/C BEFORE OT EVALUATION COULD BE ATTEMPTED
== END 2025-06-23 12:20 | disposition home health service (06) | DRG 472 ==
LOC: MEDSURG 18:16
PROVIDERS: Admitting Provider Orthopaedic Surgery; PCP Family Medicine; Visit Provider Orthopaedic Surgery
PROC: 0RG107J Fusion of Cervical Vertebral Joint with Autologous Tissue Substitute, Posterior Approach, Anterior Column, Open Approach (ICD-10-PCS; CPT 22600; principal; 2025-06-22 09:20)
DX: S12.120A Other displaced dens fracture, initial encounter for closed fracture (principal); I50.32 Chronic diastolic (congestive) heart failure; F32.A Depression, unspecified; I25.10 Atherosclerotic heart disease of native coronary artery without angina pectoris; N18.9 Chronic kidney disease, unspecified; Z79.899 Other long term (current) drug therapy; Z79.82 Long term (current) use of aspirin; Z79.02 Long term (current) use of antithrombotics/antiplatelets; Z95.5 Presence of coronary angioplasty implant and graft; Z87.891 Personal history of nicotine dependence; X58.XXXA Exposure to other specified factors, initial encounter
CPT/HCPCS: 36415; 51702; 72040; 76000; 86850; 86900; 97110; 97161; C1052; C1713; C1776; C9359; J0131; J0330; J0690; J1100; J1885; J2270; J2371; J2405; J2704; J3010; J3260; J3373; J3490; J7030; J7120; J9999; P9045

== ENCOUNTER → 2025-06-28 08:14 | Outpatient (BNVA) | payer MEDICARE, OTHER, SELFPAY | PROVIDERS: PCP Family Medicine; Visit Provider Orthopaedic Surgery | DX: Z98.890 Other specified postprocedural states (principal); Z98.1 Arthrodesis status | CPT/HCPCS: 99024 ==

== ENCOUNTER → 2025-07-07 08:21 | Outpatient (BNVA) | payer MEDICARE, OTHER, SELFPAY | PROVIDERS: PCP Family Medicine; Visit Provider Orthopaedic Surgery | DX: Z98.890 Other specified postprocedural states (principal); Z98.1 Arthrodesis status; Z46.89 Encounter for fitting and adjustment of other specified devices | CPT/HCPCS: 72040; 99024 ==

== ENCOUNTER → 2025-08-11 14:06 | Outpatient (BNVA) | payer MEDICARE, OTHER, SELFPAY | PROVIDERS: PCP Family Medicine; Visit Provider Orthopaedic Surgery | DX: Z98.890 Other specified postprocedural states (principal); Z98.1 Arthrodesis status | CPT/HCPCS: 72040; 99024 ==

== ENCOUNTER 2025-08-15 16:17 | Outpatient (CLI) | payer MEDICARE, OTHER, SELFPAY ==
[2025-08-15 17:03] LABS: Anion Gap 12.8 (5-19); Blood Urea Nitrogen 25 mg/dL (8-23); Calcium 8.8 mg/dL (8.5-10.5); Carbon Dioxide 26 mmol/L (22-29); Chloride 99 mmol/L (98-107); Glucose 97 mg/dL (65-115); Osmolality Calculated 282 mOsm/kg (285-295); Potassium 3.8 mmol/L (3.5-5.1); Sodium 134 mmol/L (136-145)
== END 2025-08-15 16:18 | disposition home or self-care (01) ==
PROVIDERS: PCP Family Medicine; Visit Provider Internal Medicine Cardiovascular Disease
DX: I25.118 Atherosclerotic heart disease of native coronary artery with other forms of angina pectoris (principal); I50.9 Heart failure, unspecified; N18.9 Chronic kidney disease, unspecified; E78.5 Hyperlipidemia, unspecified; R29.898 Other symptoms and signs involving the musculoskeletal system; Z87.891 Personal history of nicotine dependence; R06.02 Shortness of breath
CPT/HCPCS: 36415; 80048; 99214

== ENCOUNTER → 2025-09-20 09:10 | Outpatient (BNVA) | payer MEDICARE, OTHER, SELFPAY | PROVIDERS: PCP Family Medicine; Visit Provider Orthopaedic Surgery | DX: Z98.890 Other specified postprocedural states (principal); Z98.1 Arthrodesis status | CPT/HCPCS: 72040; 99024 ==